=== PATIENT | male | born 1945 | race Caucasian/White ===

== ENCOUNTER 2017-08-07 13:03 | Inpatient (IN) | payer MEDICARE, OTHER ==
[2017-08-07 13:54] VITALS: BP 119/94
[2017-08-07] MEDS ORDERED: Maalox 30 mL Cup PO PRN (16:06)
--- NOTE | 2017-08-07 16:19 | History & Physical ---
ADMIT DATE: 08/07/2017 IDENTIFYING INFORMATION: The patient is a 72-year-old male. CHIEF COMPLAINT: "They got the wrong person." HISTORY OF PRESENT ILLNESS: The patient was sent on a hold for grave disability. Apparently, ____ from Adult Protective Services contacted law enforcement regarding the health and wellbeing of the patient, stated the patient with lack of food items, smelled of urine, delusional, flashbacks and setting traps in the home that are dangerous. When she was speaking to the patient, he believes he still has a clearance and has information to close him to set up ____ in the home. No food in the home, not eating, forgetting to eat, still smelling of urine, poor hygiene, so she determined he was gravely disabled. When I talked to the patient, he was minimizing. He stated they thought somebody was having a nervous served answer with his , but then they brought him here. He reports that he was sleeping and eating well. He was minimizing everything in the hold; however, he was able to tell me the date, being 07/22/2017, which is close. He was able to tell me his date of and his age. He denies any substance abuse. PAST PSYCHIATRIC HISTORY: The patient denies any prior psychiatric treatment. Denies prior suicide attempt. He said he has never been on any medications. However, that to be determined. MEDICAL HISTORY: The patient was deferred to the medical doctor. He is allergic to metoprolol. I do not have a list of his medications. Diabetes mellitus type 2 and hypertension. Also, the patient told me he has been staying in bed for the last 18 years and states his stasis ulcer that has been untreated. FAMILY AND SOCIAL HISTORY: The patient reported that has been 50 years and has 2 children and 3 stepchildren and that he has 4 years in college. He reports he has an IQ of 280. He reports he never had a substance abuse problem. Denies any history of abuse. He said his mother apparently had diabetes mellitus complication and they thought she has mental illness, but then they realized it was diabetes. He reports he was in the . He never tried to harm himself. MENTAL STATUS EXAMINATION: The patient is appropriately dressed, not well groomed. He looked disheveled, smelling of urine. He denies everything on the hold. He was able to tell me his age and date of . He is in a hospital, but he is not sure why. He was somewhat grandiose, believing that he has an IQ of 280. He reports to sleep well. He eats well though according to the notes from Adult Protective Services that he has no food in the home and the house is messy that he was setting up the house probably that may become dangerous. He was grandiose. I am not sure of the fact of delusional about his IQ. His insight and judgment are questionable. IMPRESSION: AXIS I: Psychosis, not otherwise specified. MEDICAL DIAGNOSES: Deferred to the medical doctor. His assets, he seems to have good verbal skills. Negative, poor coping skills. INITIAL TREATMENT PLAN: The patient will try to get more information from his family to find out more what is going on with the patient because of the concern of Adult Protective Services. We will do group therapy, milieu therapy, and individual therapy. ESTIMATED LENGTH OF STAY: 3-7 days. DISCHARGE CRITERIA: Decreasing and no longer delusional. He will take care of himself after discharge, outpatient treatment. We will initiate medication as needed depending on the behavior of the patient. JOB# [id number]
[2017-08-07] MEDS ORDERED: Hydrocodone/APAP 5mg/325mg Tab PO PRN (16:22)
[2017-08-07] MEDS ORDERED: Magnesium Hydroxide (MOM) 30 mL UDC PO PRN (16:26)
[2017-08-07] MEDS: INSULIN ASPART, RECOMBINANT 100 UNITS/ML SUBQ SCH (21:28)
[2017-08-07] MEDS: Atorvastatin Calcium 10 MG TAB PO SCH (22:02)
[2017-08-08] MEDS ORDERED: Albuterol/Ipratropium Neb 3 ML AERS HHN SCH (01:00)
[2017-08-08] MEDS: Albuterol/Ipratropium Neb 3 ML AERS HHN SCH ×3 (06:32→19:08)
[2017-08-08] MEDS: INSULIN ASPART, RECOMBINANT 100 UNITS/ML SUBQ SCH ×4 (06:37→21:37)
[2017-08-08] MEDS: Levothyroxine 0.025 Mg Tab PO SCH (06:47)
[2017-08-08] MEDS ORDERED: Probiotic Screen MC PRN (09:00)
[2017-08-08] MEDS: Insulin Detemir 100 units/mL 10mL Vial SUBQ SCH ×2 (10:00→17:30)
[2017-08-08] MEDS: FLUOCINONIDE 0.05% TP SCH ×2 (10:00→17:35)
[2017-08-08] MEDS: Potassium Chloride 20 mEq ER Tab PO SCH (10:00)
[2017-08-08] MEDS: Lactobacillus Rhamnosus GG 15 Billion CFU CAP.SPRINK PO SCH (10:00)
[2017-08-08] MEDS: Ferrous Sulfate 325 MG TAB PO SCH (10:00)
--- NOTE | 2017-08-08 17:45 | History & Physical ---
ADMIT DATE: PATIENT'S ID: A 72-year old male. CHIEF COMPLAINT: "I don't have diabetes, I want my pacemaker to be out." HISTORY SOURCE: Talking to the patient, reviewing the chart from [facility]. HISTORY OF PRESENT ILLNESS: A 72-year-old -[place] presented to Emergency Room at [facility] by paramedics after the patient was noted to have a gravely disabled and the patient was placed on hold. The patient was extensively evaluated and subsequently transferred to [facility]. The patient does provide some history, but when I am talking to him he does have flights of idea and his history becomes irrelevant. PAST MEDICAL HISTORY: Remarkable for; 1. Diabetes mellitus. 2. Coronary artery disease. 3. Hypertension. 4. BPH. 5. Hyperlipidemia. 6. Chronic kidney disease. 7. Cardiomyopathy. 8. Congestive heart failure. 9. History of biventricular defibrillator placement. ALLERGIES: The patient is not allergic to medication. SOCIAL HISTORY: The patient lives in [facility]. The patient has no history of smoking cigarette, alcohol, or drug use. FAMILY MEDICAL HISTORY: Remarkable for diabetes and hypertension. REVIEW OF SYSTEMS: The patient currently denies any headache, blurred vision, double vision, dysphagia, odynophagia, runny nose, stuffy nose, fever, chills, cough, chest pain, shortness of breath, palpitation, dizziness, nausea, vomiting, diarrhea, dysuria, hematuria, hematochezia, or melena. No history of any seizure or syncopal episode. PHYSICAL EXAMINATION: GENERAL: The patient is alert and awake, lying in the bed without any acute distress. VITAL SIGNS: Temperature 98.6, pulse 74, respiratory rate 18, and blood pressure 144/80. HEENT: Normocephalic and atraumatic. Extraocular muscles are intact. Tongue was pink and coated. Absent upper and lower dentition noted. No facial asymmetry. NECK: Supple. No JVD. No hepatojugular reflux. No lymphadenopathy, thyromegaly, or carotid bruit. HEART: Both heart sounds are regular. Positive S3 noted. CHEST: Lung equal in expansion. No wheezing, no crackles palpable. AICD in the left subclavian area noted. ABDOMEN: Soft. No guarding, rigidity. Bowel sounds are present. No palpable mass. EXTREMITIES: Has a bilateral chronic venous stasis changes with some excoriation also noted. Peripheral pulses were unable to palpate in the lower extremity. NEUROLOGIC: Alert and awake. Follows command. A 2-12 cranial nerves intact. Power in upper and lower extremity 5-. Sensation to touch intact. Babinski's, both toes are going down. No cerebral sign. AVAILABLE DIAGNOSTIC DATA: White count of 4.6, hemoglobin 9.7, and platelet count of 197. Urine drug screen is unremarkable. BUN and creatinine is 30 and 1.73, potassium 4.2. AST and ALTs are normal. EKG has underlying bundle-branch block with a paced rhythm. CLINICAL IMPRESSION: 1. Diabetes mellitus. 2. Hypertension. 3. Hyperlipidemia. 4. Benign prostatic hypertrophy. 5. Cardiomyopathy. 6. Congestive heart failure. 7. Degenerative joint disease. 8. Bilateral chronic venous stasis changes. 9. Chronic kidney disease stage III. 10. Normocytic normochromic anemia. 11. Psychotic disorder exacerbation. 12. High risk for fall. 13. Debility. PLAN: The patient is admitted at this time to Geropsych Unit, psychiatric evaluation and management deferred to psychiatrist. The patient will be placed on his home medication for diabetes, hypertension, and hyperlipidemia along with some p.r.n. symptomatic medication as well. Continue Lyrica for his peripheral neuropathy and chronic venous stasis changes. Chronic venous stasis changes will be observed clinically and local wound care will be provided as well. The patient is to be provided fall precautions as well. Diabetes was managed with Glucoscan before meals and at bedtime with covering the blood sugars, sliding scale regular insulin. The patient will be followed by us during his stay in the hospital. The patient is medically stable to participate in the activity provided by the Geropsych Unit. I sincerely thank you, Dr. Gisela Dee for giving me opportunity to participate in patient of yours. JOB# [id number]
[2017-08-08] MEDS: Atorvastatin Calcium 10 MG TAB PO SCH (21:36)
--- NOTE | 2017-08-09 02:43 | Progress Notes ---
DATE: 08/08/2017 SUBJECTIVE: Case was discussed with staff of the patient, reviewed records. The patient has been easily agitated, refusing treatment for his diabetic ulcers, and selective about his medication. He is unpredictable and impulsive. He was unable to recognize me today, than he did want to talk to me. He continues to have poor insight and grandiose. He is sleeping well and eating well. He has no clue about why he is here and forgetful. The patient is diabetic, has a stasis ulcers on both of his feet and legs. He has been yelling there is a [place] , throwing things. PLAN: I will be initiating the patient on Aricept and see if we need to give him any major tranquilizer to help with his behavior as well as give him more time. I am not sure he will take the medication. We will continue to work with the patient in group therapy, milieu therapy, and adjust the medication as needed. JOB# [id number]
[2017-08-09] MEDS: Levothyroxine 0.025 Mg Tab PO SCH (06:33)
[2017-08-09] MEDS: INSULIN ASPART, RECOMBINANT 100 UNITS/ML SUBQ SCH ×5 (06:40→20:39)
[2017-08-09] MEDS: Albuterol/Ipratropium Neb 3 ML AERS HHN SCH ×3 (07:34→20:09)
--- NOTE | 2017-08-09 09:11 | General Progress Note ---
Subjective - Review of Systems Service Date: 08/09/17 Subjective: Patient is seen and examined. No chest pain,SOB,fever,Chill,cough ,headache. Objective - Results Recent Labs: Laboratory Last Values POC Glucose 259 MG/DL (70 - 105) H 08/07/17 14:45 - Physical Exam Vitals and I&O: Vital Signs Temp 97.5 F 08/09/17 05:43 Pulse 95 08/09/17 07:39 Resp 16 08/09/17 07:39 BP 120/68 08/09/17 05:43 Pulse Ox 100 08/09/17 07:39 Intake & Output 08/08/17 08/09/17 08/09/17 18:59 06:59 18:59 Intake Total 1600 480 Output Total 600 Balance 1000 480 Intake: Oral 1600 480 Output: Urine 600 Other: # Voids 2 # Bowel Movements 1 Active Medications: Current Medications Acetaminophen (Tylenol) 650 mg PO Q4H PRN PRN Reason: MILD PAIN Stop: 10/06/17 16:03 Last Admin: 08/07/17 22:04 Dose: 650 mg Acetaminophen/Hydrocodone Bitart ([place] 5mg/325mg) 1 tab PO Q4H PRN PRN Reason: SEVERE PAIN Stop: 10/06/17 16:21 Last Admin: 08/08/17 12:17 Dose: 1 tab Al Hydrox/Mg Hydrox/Simethicone (Maalox) 30 ml PO Q6HR PRN PRN Reason: GI DISTRESS Stop: 10/06/17 16:05 Albuterol/Ipratropium (Duoneb Neb) 3 ml HHN [id number] [facility] Stop: 10/07/17 06:59 Last Admin: 08/09/17 07:34 Dose: 3 ml Amiodarone HCl (Cordarone) 200 mg PO DAILY MATHEW Stop: 10/07/17 08:59 Last Admin: 08/08/17 10:00 Dose: Not Given Atorvastatin Calcium (Lipitor) 20 mg PO HS MATHEW PRN Reason: Protocol Stop: 10/06/17 20:59 Last Admin: 08/08/17 21:36 Dose: 20 mg Carvedilol (Coreg) 3.125 mg PO Q12HR MATHEW Stop: 10/06/17 20:59 Last Admin: 08/08/17 21:34 Dose: 3.125 mg [place] Oil/[place] Balsam/Trypsin (Venelex) 1 appl TP DAILY MATHEW Stop: 10/08/17 08:59 Clindamycin HCl (Cleocin Hcl) 450 mg PO Q8HR MATHEW Stop: 10/06/17 20:59 Last Admin: 08/09/17 05:43 Dose: 450 mg Digoxin (Lanoxin) 0.125 mg PO HS MATHEW Stop: 10/06/17 20:59 Last Admin: 08/08/17 21:37 Dose: Not Given Donepezil HCl (Aricept) 5 mg PO HS MATHEW Stop: 10/07/17 20:59 Last Admin: 08/08/17 21:37 Dose: Not Given Dutasteride (Avodart) 0.5 mg PO DAILY MATHEW PRN Reason: Protocol Stop: 10/07/17 08:59 Last Admin: 08/08/17 10:00 Dose: Not Given Ferrous Sulfate (Iron) 325 mg PO DAILY MATHEW Stop: 10/07/17 08:59 Last Admin: 08/08/17 10:00 Dose: Not Given Fluocinonide (Fluocinonide 60 Ml) 2 appl TP BID MATHEW Stop: 10/07/17 08:59 Last Admin: 08/08/17 17:35 Dose: 2 appl Furosemide (Lasix) 40 mg PO BID MATHEW Stop: 10/06/17 16:59 Last Admin: 08/08/17 17:34 Dose: Not Given Insulin Aspart (Novolog) 0 units SUBQ ACHS MATHEW PRN Reason: Protocol Stop: 10/06/17 20:59 Last Admin: 08/09/17 06:40 Dose: Not Given Insulin Detemir (Levemir Insulin) 15 units SUBQ BID MATHEW PRN Reason: Protocol Stop: 10/07/17 08:59 Last Admin: 08/08/17 17:30 Dose: Not Given Lactobacillus Rhamnosus (Culturelle 15b) 1 each PO DAILY MATHEW Stop: 10/07/17 08:59 Last Admin: 08/08/17 10:00 Dose: Not Given Levothyroxine Sodium (Synthroid) 0.025 mg PO QDAC MATHEW Stop: 10/07/17 07:29 Last Admin: 08/09/17 06:33 Dose: 0.025 mg Lisinopril (Zestril) 2.5 mg PO DAILY MATHEW Stop: 10/07/17 08:59 Last Admin: 04/30/18 10:00 Dose: Not Given Magnesium Hydroxide (Milk Of Magnesia) 30 ml PO HS PRN PRN Reason: Constipation Stop: 10/06/17 16:25 Miscellaneous (Probiotic Screen) 1 ea MC PRN PRN PRN Reason: PROTOCOL Stop: 10/07/17 08:59 Nabumetone (Relafen) 750 mg PO BID MATHEW Stop: 10/07/17 08:59 Last Admin: 08/08/17 17:41 Dose: 750 mg Nitroglycerin (Nitrostat) 0.4 mg SL Q5MIN PRN PRN Reason: Chest Pain Stop: 10/06/17 16:27 Potassium Chloride (Klor-Con) 20 meq PO DAILY MATHEW Stop: 10/07/17 08:59 Last Admin: 08/08/17 10:00 Dose: Not Given Pregabalin (Lyrica) 150 mg PO Q12HR MATHEW Stop: 10/06/17 20:59 Last Admin: 08/08/17 21:00 Dose: Not Given Rivaroxaban (Xarelto) 15 mg PO DAILY MATHEW Stop: 10/07/17 08:59 Last Admin: 08/08/17 10:00 Dose: Not Given Spironolactone (Aldactone) 25 mg PO DAILY MATHEW Stop: 10/07/17 08:59 Last Admin: 08/08/17 10:00 Dose: Not Given Tamsulosin HCl (Flomax) 0.4 mg PO DAILY [facility] Stop: 10/07/17 08:59 Last Admin: 08/08/17 10:00 Dose: Not Given Valsartan (Diovan) 20 mg PO DAILY MATHEW Stop: 10/07/17 08:59 Last Admin: 08/08/17 10:00 Dose: Not Given General: Alert, Cooperative, No acute distress HEENT: Atraumatic, PERRLA, EOMI, Other (absent teeth.) Neck: Supple, JVD Cardiovascular: Regular rate, Normal S1, Normal S2 Lungs: Clear to auscultation Abdomen: Bowel sounds, Soft Extremities: Other (chronic venous stasis changes.) Neurological: Normal speech, Normal tone, Sensation intact Psych/Mental Status: Other (labile.) Assessment/Plan - Assessment Assessment: Diabetes. Hypertension. Hyperlipedemia DJD Psych disorder Chronic venous stasis Hypothyrodism Cardiac arrythmia Fall risk. - Plan Plan: Diabetes management Anti htn meds. Synthroid statin psych meds Psych follow up. General nursing care Continue current care. Fall precautions Care plan reviewed with staff.
[2017-08-09] MEDS: Ferrous Sulfate 325 MG TAB PO SCH (10:00)
[2017-08-09] MEDS: Lactobacillus Rhamnosus GG 15 Billion CFU CAP.SPRINK PO SCH (10:00)
[2017-08-09] MEDS: Insulin Detemir 100 units/mL 10mL Vial SUBQ SCH ×2 (10:00→16:52)
[2017-08-09] MEDS: FLUOCINONIDE 0.05% TP SCH ×2 (10:00→16:52)
[2017-08-09] MEDS: Venelex 60gm Tube TP SCH (10:00)
[2017-08-09] MEDS: Potassium Chloride 20 mEq ER Tab PO SCH (10:00)
[2017-08-09] MEDS: Atorvastatin Calcium 10 MG TAB PO SCH (20:34)
--- NOTE | 2017-08-10 03:51 | Progress Notes ---
DATE: 08/09/2017 SUBJECTIVE: Case discussed with staff of the patient. He continues to be grandiose and delusional. Continues to be unable to make safe plan for self-care. He has no insight about the reason that led to him coming here. He was found with urine all over him with no food in the house. Unable to formulate a safe plan for his self-care. No side effects with the medication, no sedation, or no nausea. PLAN: The patient refused to be on any medication. We will continue outpatient group therapy, milieu therapy, and adjust medication as needed. JOB# [id number]
[2017-08-10] MEDS: INSULIN ASPART, RECOMBINANT 100 UNITS/ML SUBQ SCH ×4 (06:29→20:51)
[2017-08-10] MEDS: Levothyroxine 0.025 Mg Tab PO SCH (06:31)
[2017-08-10] MEDS: Albuterol/Ipratropium Neb 3 ML AERS HHN SCH ×3 (07:24→19:33)
[2017-08-10] MEDS: Ferrous Sulfate 325 MG TAB PO SCH (08:30)
[2017-08-10] MEDS: Potassium Chloride 20 mEq ER Tab PO SCH (08:31)
[2017-08-10] MEDS: Lactobacillus Rhamnosus GG 15 Billion CFU CAP.SPRINK PO SCH (08:33)
[2017-08-10] MEDS: Venelex 60gm Tube TP SCH (08:35)
[2017-08-10] MEDS: FLUOCINONIDE 0.05% TP SCH ×2 (08:35→16:22)
[2017-08-10] MEDS: Insulin Detemir 100 units/mL 10mL Vial SUBQ SCH ×2 (08:55→16:21)
[2017-08-10] MEDS: Atorvastatin Calcium 10 MG TAB PO SCH (20:45)
--- NOTE | 2017-08-11 00:25 | Progress Notes ---
DATE: 08/10/2017 SUBJECTIVE: Chart reviewed and the patient interviewed. Also, discussed the patient's condition with the staff and reviewed records and labs. The patient constantly talking and he is hyperverbal and has pressured speech. The patient also is still restless and in irritable mood and he is easily agitated. The patient also is paranoid and has grandiose delusions. Also, is refusing to take any medications for no apparent reason except "I don't need any medicine." The patient also is pricking on his skin to the point of bleeding comes out from his skin. Also, the patient is rambling and disorganized thoughts. ASSESSMENT: The patient is still psychotic. TREATMENT PLAN: Discussed with the patient the importance of taking his psychotropic medications. He still has poor insight and gave no reason for choosing medications except he thinks that "I don't need it." We will continue to work on his noncompliance with medications. Also, we will continue monitoring his behavior and continue to follow up closely. JOB# [id number]
[2017-08-11] MEDS: INSULIN ASPART, RECOMBINANT 100 UNITS/ML SUBQ SCH ×4 (06:30→21:32)
[2017-08-11] MEDS: Levothyroxine 0.025 Mg Tab PO SCH (06:34)
[2017-08-11] MEDS: Albuterol/Ipratropium Neb 3 ML AERS HHN SCH ×3 (07:24→19:42)
[2017-08-11] MEDS: Potassium Chloride 20 mEq ER Tab PO SCH ×2 (09:22→09:31)
[2017-08-11] MEDS: Ferrous Sulfate 325 MG TAB PO SCH (09:22)
[2017-08-11] MEDS: Lactobacillus Rhamnosus GG 15 Billion CFU CAP.SPRINK PO SCH (09:22)
[2017-08-11] MEDS: OLANZapine 5 mg Oral Disintegrating Tab PO SCH ×2 (09:23→17:26)
[2017-08-11] MEDS: Insulin Detemir 100 units/mL 10mL Vial SUBQ SCH ×2 (09:24→17:26)
[2017-08-11] MEDS: Atorvastatin Calcium 10 MG TAB PO SCH (21:30)
[2017-08-12] MEDS: INSULIN ASPART, RECOMBINANT 100 UNITS/ML SUBQ SCH ×4 (06:39→21:45)
[2017-08-12] MEDS: Levothyroxine 0.025 Mg Tab PO SCH (06:42)
[2017-08-12] MEDS: Albuterol/Ipratropium Neb 3 ML AERS HHN SCH ×3 (07:36→19:20)
[2017-08-12] MEDS: Lactobacillus Rhamnosus GG 15 Billion CFU CAP.SPRINK PO SCH (09:30)
[2017-08-12] MEDS: OLANZapine 5 mg Oral Disintegrating Tab PO SCH ×2 (09:31→17:54)
[2017-08-12] MEDS: Ferrous Sulfate 325 MG TAB PO SCH (09:31)
[2017-08-12] MEDS: FLUOCINONIDE 0.05% TP SCH ×4 (17:00→17:52)
[2017-08-12] MEDS: Venelex 60gm Tube TP SCH ×2 (17:00→17:51)
[2017-08-12] MEDS: Insulin Detemir 100 units/mL 10mL Vial SUBQ SCH ×2 (17:01→18:03)
[2017-08-12] MEDS: Potassium Chloride 20 mEq ER Tab PO SCH (17:52)
--- NOTE | 2017-08-12 19:53 | Progress Notes ---
DATE: SUBJECTIVE: Chart reviewed and the patient interviewed. Also discussed the patient's condition with the staff and reviewed records and labs. The patient continued to be uncooperative and in irritable mood. The patient also is still not taking any medications and thinks that he is smart enough that he does not need any psychotropic medications. He also is still restless and he is still unpredictable and . Also, he is still in denial of any psychiatric issues. Otherwise, the patient continued to have irritable moods and disorganized thoughts. ASSESSMENT: The patient is still psychotic. TREATMENT PLAN: Continue monitoring his behavior and his condition closely and we will add Zyprexa Zydis for better compliance with taking his medications and will continue to follow up closely. JOB# [id number]
[2017-08-12] MEDS: Atorvastatin Calcium 10 MG TAB PO SCH (21:17)
--- NOTE | 2017-08-14 19:38 | Discharge Summary ---
DATE OF DISCHARGE: 08/12/2017 AGE; 78. SEX: Male. PHYSICIAN: Dr. Dee. FINAL DIAGNOSIS/PRIMARY DIAGNOSIS: Unspecified psychosis. MEDICAL DIAGNOSIS: Infection to legs. REASON FOR HOSPITALIZATION: The patient was admitted to the hospital because of increased irritability and agitation. HOSPITAL COURSE: The patient was admitted to the hospital. The patient was uncooperative and refusing treatment and even his insulin. The patient's condition of his feet and leg was getting worse and the patient was having difficulty with his cooperative and compliant with medications and treatment. The patient was transferred to medical floor to monitor his medical condition closely. Physical examination of the patient showed that the patient need more medical clearance for his medical problems and for his leg condition. AFTER DISCHARGE PLANS: The patient discharged to medical floor with plans to monitor his condition and follow him there for a psychological condition. [facility]# [id number]
== END 2017-08-12 22:00 | DRG 885 ==
LOC: GERO 13:03
PROVIDERS: ADMIT Psychiatry & Neurology Psychiatry; ATTEND Psychiatry & Neurology Psychiatry
DX: F29 Unspecified psychosis not due to a substance or known physiological condition (principal); N18.3 Chronic kidney disease, stage 3 (moderate); I42.9 Cardiomyopathy, unspecified; I13.0 Hypertensive heart and chronic kidney disease with heart failure and stage 1 through stage 4 chronic kidney disease, or unspecified chronic kidney disease; E78.5 Hyperlipidemia, unspecified; N40.0 Benign prostatic hyperplasia without lower urinary tract symptoms; I50.9 Heart failure, unspecified; M19.90 Unspecified osteoarthritis, unspecified site; E11.22 Type 2 diabetes mellitus with diabetic chronic kidney disease; D64.9 Anemia, unspecified; Z91.81 History of falling; R53.81 Other malaise; I87.8 Other specified disorders of veins; I25.10 Atherosclerotic heart disease of native coronary artery without angina pectoris; E11.42 Type 2 diabetes mellitus with diabetic polyneuropathy; I49.9 Cardiac arrhythmia, unspecified; Z95.810 Presence of automatic (implantable) cardiac defibrillator
CPT/HCPCS: 82948-90; 90899; 94640; 94760; G0410; J1815; Z7610

== ENCOUNTER 2017-08-12 22:00 | Inpatient (IN) | payer MEDICARE, OTHER ==
[2017-08-13] MEDS ORDERED: Maalox 30 mL Cup PO PRN (02:11)
[2017-08-13] MEDS ORDERED: Magnesium Hydroxide (MOM) 30 mL UDC PO PRN (02:11)
--- NOTE | 2017-08-13 05:01 | Progress Notes ---
DATE: 08/12/2017 PSYCHIATRIC PROGRESS NOTE Chart reviewed and the patient interviewed. Also discussed the patient's condition with the staff and reviewed records and labs. The patient is still in irritable and angry mood. The patient also is still manipulative and he is still unpredictable. Also, is still suspicious and hypertalkative and he still refuses medications. He also still has severe mood swings and severe anxiety. Otherwise, the patient exhibiting minor behavioral issues and problems, especially being intrusive to others and encouraging other patients not to take medications. ASSESSMENT: The patient is still psychotic and agitated. TREATMENT PLAN: Continue monitoring his behavior and condition closely. Also, continue to talk to the patient about taking his psychotropic medications. Also, continue to work on his irritability and anger. JOB# [id number]
[2017-08-13 06:33] LABS: % EOSINOPHILS 2.4 % (0.0-5.0); % MONOCYTES 6.5 % (2.0-10.0); EOSINOPHILE ABSOLUTE 0.1 Th/cmm (0.1-0.4); LYMPHOCYTE ABSOLUTE 0.6 Th/cmm (1.5-3.0); MEAN CELL VOLUME 78.3 fl (80-99); MONOCYTE ABSOLUTE 0.3 Th/cmm (0.3-1.0); WHITE BLOOD COUNT 4.5 Th/cmm (4.8-10.8)
[2017-08-13 06:41] LABS: % NEUTROPHILS 76.1 % (40.0-80.0); HEMATOCRIT 24.1 % (41.0-60); MEAN CORPUSCULAR HEMOGLOBIN 25.7 pg (27.0-31.0); MEAN CORPUSCULAR HGB CONC 32.9 pg (28.0-36.0); MEAN PLATELET VOLUME 7.5 fl; NEUTROPHILE ABSOLUTE 3.5 Th/cmm (1.8-8.0); PLATELET COUNT 167 Th/cmm (150-400); RED BLOOD COUNT 3.07 Mil/cmm (3.80-5.80); RED CELL DISTRIBUTION WIDTH 18.6 % (11.5-20.0)
[2017-08-13] MEDS: INSULIN ASPART, RECOMBINANT 100 UNITS/ML SUBQ SCH ×3 (06:41→18:09)
[2017-08-13] MEDS: Levothyroxine 0.025 Mg Tab PO SCH (06:42)
[2017-08-13 06:43] LABS: HEMOGLOBIN 7.9 gm/dL (12-16)
[2017-08-13 07:03] LABS: ANION GAP 12.2 (7.0-16.0); CALCIUM SERUM 8.8 mg/dL (8.6-10.3); CARBON DIOXIDE 23.2 mEq/L (21.0-31.0); CREATININE - SERUM 2.1 mg/dL (0.7-1.3); GFR AFRICAN-AMERICAN 40.4 ml/min (>90); GFR NON AFRICAN-AMERICAN 33.4 ml/min; POTASSIUM SERUM 5.4 mEq/L (3.5-5.1)
[2017-08-13] MEDS: Albuterol/Ipratropium Neb 3 ML AERS HHN SCH ×3 (07:24→19:17)
[2017-08-13] MEDS ORDERED: INSULIN ASPART, RECOMBINANT 100 UNITS/ML SUBQ SCH (07:30)
[2017-08-13] MEDS ORDERED: Potassium Chloride 20 mEq ER Tab PO SCH (09:00)
[2017-08-13] MEDS ORDERED: Venelex 60gm Tube TP SCH (09:00)
[2017-08-13] MEDS ORDERED: Insulin Detemir 100 units/mL 10mL Vial SUBQ SCH (09:00)
[2017-08-13] MEDS: Insulin Detemir 100 units/mL 10mL Vial SUBQ SCH ×2 (09:52→18:20)
[2017-08-13] MEDS: FLUOCINONIDE 0.05% TP SCH ×2 (10:00→18:17)
[2017-08-13] MEDS: Venelex 60gm Tube TP SCH (10:01)
[2017-08-13] MEDS: Lactobacillus Rhamnosus GG 15 Billion CFU CAP.SPRINK PO SCH (10:02)
[2017-08-13] MEDS: Ferrous Sulfate 325 MG TAB PO SCH (10:02)
[2017-08-13] MEDS: OLANZapine 5 mg Oral Disintegrating Tab PO SCH ×2 (10:03→18:17)
--- NOTE | 2017-08-13 15:45 | Consultation ---
Consult Note - Consult Note Service Date: 08/13/17 Referring Physician: Mykel Torres Consult Note: PHYSICIAN Consultation Note: Date of Admission: 08/12/17 Purpose of Consultation: Bilateral leg cellulitis and wounds. Chief Complaint: Patient LUIS GOMEZ was admitted to [facility] Medical/Surgical Unit I with BILATERAL LOWER EXTREMITY WOUND. History of Present Illness:Patient is 72 year male with a past medical history of diabetes mellitus type 2, hypertension, carotid disease, BPH, hyperlipidemia , CK D, cardiopathy, CHF, defibrillator, brought to [facility] by paramedics for being gravely disabled. Patient will put on hold. He was transferred to the [facility] Mark-psych unit for further care. He was noted to have bilateral leg ulcers with the surrounding erythema worse on the left side with erythema and swelling extending to the foot. The cellulitis of both legs was treated by clindamycin orally. As patient's facilities are not getting Z was transferred to acute care setting for further care. Patient stated that he had that developed wound 4 years ago and never healed. Also he noticed some improvement. He is refusing to open the dressing to unable to evaluate the wound. However erythema was noted mainly on the left foot and leg area. Patient was afebrile and WBC count was 4500. Vancomycin was started and ID consult was called for further antibiotic management. Past Medical History: diabetes mellitus type 2, hypertension, carotid disease, BPH, hyperlipidemia, CK D, cardiopathy, CHF, defibrillator, Allergies Allergy/AdvReac Type Severity Reaction Status Date / Time metoprolol Allergy Unknown Verified 08/09/17 15:36 pregabalin [From Lyrica] Allergy Unknown Verified 08/09/17 15:36 Vital Signs Temp 97.7 F 08/13/17 06:19 Pulse 87 08/13/17 12:30 Resp 14 08/13/17 12:30 BP 100/52 08/13/17 10:27 Pulse Ox 97 08/13/17 12:30 Intake & Output 08/12/17 08/13/17 08/13/17 18:59 06:59 18:59 Intake Total 550 Balance 550 Weight (lbs) 74.843 kg Intake: Oral 550 Other: # Voids 2 Weight Source Standing scale Laboratory Results - last 24 hr 08/13/17 08/13/17 08/13/17 06:04 06:04 11:54 WBC 4.5 L RBC 3.07 L Hgb 7.9 L* Hct 24.1 L MCV 78.3 L MCH 25.7 L MCHC Differential 32.9 RDW 18.6 Plt Count 167 MPV 7.5 Neutrophils % 76.1 Lymphocytes % 14.0 L Monocytes % 6.5 Eosinophils % 2.4 Basophils % 1.0 Sodium 139 Potassium 5.4 H Chloride 109 H Carbon Dioxide 23.2 Anion Gap 12.2 BUN 52 H Creatinine 2.1 H Est GFR ( Amer) 40.4 Est GFR (Non-Af Amer) 33.4 BUN/Creatinine Ratio 24.8 Glucose 148 H POC Glucose 174 H Calcium 8.8 Current Medications Generic Name Dose Route Start Last Admin Trade Name Freq PRN Reason Stop Dose Admin Acetaminophen 650 mg 08/13/17 02:09 Tylenol PO 10/12/17 02:08 Q4H PRN Pain or Fever >101 Acetaminophen/Hydrocodone Bitart 1 tab 08/13/17 02:11 [place] 5mg/325mg PO 10/12/17 02:10 Q4H PRN mild pain Al Hydrox/Mg Hydrox/Simethicone 30 ml 08/13/17 02:11 Maalox PO 10/12/17 02:10 Q6HR PRN GI DISTRESS Albuterol/Ipratropium 3 ml 08/13/17 07:00 08/13/17 12:28 Duoneb [facility] 10/12/17 06:59 3 ml Q6HRT MATHEW Administration Albuterol/Ipratropium 3 ml 08/13/17 07:00 Duoneb [facility] 10/12/17 06:59 [id number] MATHEW Amiodarone HCl 200 mg 08/13/17 09:00 08/13/17 10:02 Cordarone PO 10/12/17 08:59 200 mg DAILY MATHEW Administration Atorvastatin Calcium 20 mg 08/13/17 21:00 Lipitor PO 10/12/17 20:59 HS [facility] Protocol Carvedilol 3.125 mg 08/13/17 09:00 08/13/17 10:04 Coreg PO 10/12/17 08:59 Not Given Q12HR MATHEW [place] Oil/Chilean Balsam/Trypsin 1 appl 08/13/17 09:00 08/13/17 10:01 Venelex TP 10/12/17 08:59 1 appl DAILY MATHEW Administration [place] Oil/Chilean Balsam/Trypsin 1 appl 08/13/17 09:00 08/13/17 10:04 Venelex TP 10/12/17 08:59 1 appl DAILY MATHEW Administration Clindamycin HCl 450 mg 08/13/17 05:00 08/13/17 05:38 Cleocin Hcl PO 10/12/17 04:59 450 mg Q8HR MATHEW Administration Digoxin 0.125 mg 08/13/17 21:00 Lanoxin PO 10/12/17 20:59 HS MATHEW Donepezil HCl 5 mg 08/13/17 21:00 Aricept PO 10/12/17 20:59 HS MATHEW Dutasteride 0.5 mg 08/13/17 09:00 08/13/17 10:02 Avodart PO 10/12/17 08:59 0.5 mg DAILY MATHEW Administration Protocol Ferrous Sulfate 325 mg 08/13/17 09:00 08/13/17 10:02 Iron PO 10/12/17 08:59 325 mg DAILY MATHEW Administration Fluocinonide 2 appl 08/13/17 09:00 08/13/17 10:00 Fluocinonide 60 Ml TP 10/12/17 08:59 2 appl BID MATHEW Administration Furosemide 40 mg 08/13/17 09:00 08/13/17 10:05 Lasix PO 10/12/17 08:59 Not Given BID MATHEW Vancomycin HCl 1 gm/ Sodium 250 mls @ 165 mls/hr 08/14/17 09:00 Chloride IV 08/14/17 13:00 0900 [facility] Insulin Aspart 0 units 08/13/17 07:30 08/13/17 14:22 Novolog SUBQ 10/12/17 07:29 Not Given ACHS [facility] Protocol Insulin Detemir 15 units 08/13/17 09:00 08/13/17 09:52 Levemir Insulin SUBQ 10/12/17 08:59 15 unit BID MATHEW Administration Protocol Lactobacillus Rhamnosus 1 each 08/13/17 09:00 08/13/17 10:02 Culturelle 15b PO 10/12/17 08:59 1 each DAILY MATHEW Administration Levothyroxine Sodium 0.025 mg 08/13/17 07:30 08/13/17 06:42 Synthroid PO 10/12/17 07:29 0.025 mg QDAC MATHEW Administration Lisinopril 2.5 mg 08/13/17 09:00 08/13/17 10:05 Zestril PO 10/12/17 08:59 Not Given DAILY MATHEW Magnesium Hydroxide 30 ml 08/13/17 02:11 Milk Of Magnesia PO 10/12/17 02:10 HS PRN Constipation Miscellaneous 1 ea 08/13/17 02:00 Vancomycin Iv Per Pharmacy 10/12/17 01:59 PRN PRN PROTOCOL Nabumetone 750 mg 08/13/17 09:00 08/13/17 10:01 Relafen PO 10/12/17 08:59 Not Given BID MATHEW Nitroglycerin 0.4 mg 08/13/17 02:11 Nitrostat SL 10/12/17 02:10 Q5MIN PRN Chest Pain Olanzapine 5 mg 08/13/17 09:00 08/13/17 10:03 Zyprexa Zydis PO 10/12/17 08:59 5 mg BID MATHEW Administration Protocol Potassium Chloride 20 meq 08/13/17 09:00 08/13/17 10:26 Klor-Con PO 10/12/17 08:59 20 meq DAILY MATHEW Administration Rivaroxaban 15 mg 08/13/17 09:00 08/13/17 10:26 Xarelto PO 10/12/17 08:59 15 mg DAILY MATHEW Administration Spironolactone 25 mg 08/13/17 09:00 08/13/17 10:23 Aldactone PO 10/12/17 08:59 Not Given DAILY MATHEW Tamsulosin HCl 0.4 mg 08/13/17 09:00 08/13/17 10:03 Flomax PO 10/12/17 08:59 0.4 mg DAILY MATHEW Administration Valsartan 20 mg 08/13/17 09:00 08/13/17 10:27 Diovan PO 10/12/17 08:59 Not Given DAILY MATHEW Review of Systems: A 12 point ROS was reviewed with the pertinent positive and negatives noted in the HPI. Social History Smoking Status Unknown if ever smoked Drug Use No Alcohol Use No Lives at nursing facility. Family Medical History Not available Physical Exam: General: Comfortable, not in acute distress. HEENT: Head: Normocephalic, atraumatic. Oral cavity: Moist, pink tongue eyes: Pallor is present and no icterus. Pupil PERRLA EOMI. Neck: Supple, no JVD or bruit. No no use of accessory neck muscles. Cardio: S1 and S2 within normal limits regular rhythm no murmur no gallop. Respiratory: CTAP. Abdominal: Soft, nontender, nondistended bowel sounds present. Genital/Urinary: Deferred. Extremities: No cyanosis no clubbing no edema. Patient has chronic nonhealing wound both legs with some surrounding erythema. Erythema is worse on the left side. The erythema of the left legs extended to the dorsum of the foot. There is open ulcers of left forearm. Neurological: Alert awake oriented 3. 1. Assessment: 1. Cellulitis of both legs. With open nonhealing complicated wound. Cellulitis of left foot. 2. Left forearm wound. 3. Diabetes mellitus type 2. 4. Hypertension. 5. Hyperlipidemia. Plan: Continue vancomycin and discontinue clindamycin. Patient needs aggressive wound care. Wound cultures. Thank you Dr. Torres for involving me in taking care of this patient Signed, Chi Vinson M.D. [id number]
--- NOTE | 2017-08-13 18:07 | Progress Notes ---
DATE: 08/13/2017 PSYCHIATRIC PROGRESS NOTE Chart reviewed and the patient interviewed. Also, discussed the patient's condition with the staff and reviewed records and labs. [facility] medical floor because of a possible infection in his lower legs and feet. The patient has been refusing to take any psychotropic medications and even his insulin and all other medications and the patient's medical conditions deteriorated and transferred the patient to the medical floor for more medical treatment. The patient is still restless and he is still in irritable mood, but at the same time seems to be slightly sedated and slightly easier, give him medications, said he has IV. Currently, the patient is calm and he is cooperative with treatment. ASSESSMENT: The patient is less agitated and is more cooperative. TREATMENT PLAN: Continue monitoring his behavior and continue adjusting psychotropic medications and followup. JOB# [id number]
[2017-08-13] MEDS: Atorvastatin Calcium 10 MG TAB PO SCH (20:59)
--- NOTE | 2017-08-13 22:55 | History & Physical ---
ADMIT DATE: 08/13/2017 REASON FOR ADMISSION: Bilateral lower extremity cellulitis and open wound. HISTORY OF PRESENT ILLNESS: This is a 72-year-old male with underlying history of multiple complex medical history including diabetes with nephropathy, hypertension, hyperlipidemia, cardiomyopathy, CHF, status post defibrillator and pacemaker placement, was [facility] for underlying psychiatric illnesses by Dr. Dee. While the patient was being treated with oral clindamycin for both lower extremity cellulitis with chronic venous stasis and open wound. In spite of oral antibiotic, the patient's wound appears to be worsening, infected and has some discharge, so the patient was directed to the medical floor for further evaluation and treatment. At the time of evaluation, the patient is awake, alert. Denies any fever, no chills, no nausea, no vomiting. The patient states he has had this wound for over the past 3-4 years and it never healed. PAST MEDICAL HISTORY: Diabetes with nephropathy, CKD 3, hypertension, BPH, hyperlipidemia, hypothyroidism, congestive heart failure. PAST SURGICAL HISTORY: No significant past surgeries reported.. SOCIAL HISTORY: The patient lives at group home facility. Denies any alcohol, tobacco, or street drug use. CURRENT MEDICATIONS: The patient is currently on Tylenol, [place], Maalox, DuoNeb, amiodarone, Lipitor, Coreg, digoxin, Aricept, Avodart, iron supplements, fluocinonide, Levemir, NovoLog, Synthroid, Zestril, milk of mag, vancomycin, Nitrostat, Zyprexa, Xarelto, Aldactone, Flomax, Diovan. REVIEW OF SYSTEMS: The patient denies any fever, no chills, no diarrhea, no vomiting, no abdominal pain, no headache, no trouble vision, no trouble speech, no hematuria, no dysuria, no hematemesis, no melena, no headache, no chest pain, no shortness of breath, dizziness or palpitation complaints. PHYSICAL EXAMINATION: VITAL SIGNS: Temperature 97.2, pulse 87, respirations 19, blood pressure 126/80 93% on room air. Pain 0/10. GENERAL APPEARANCE: The patient was sitting comfortably in the bed, in no apparent distress. HEENT: Unremarkable. HEART: S1, S2 normal. LUNGS: Clear to auscultation bilaterally. ABDOMEN: Soft, nontender, no nondistended. No guarding. NEUROLOGIC: The patient is alert, awake. Moves all extremities. Grossly nonfocal exams. EXTREMITIES: Bilateral open wound with surrounding erythema and slough noted. Chronic venous stasis noted. Pulse is feeble on both lower extremities. AVAILABLE LABORATORY DATA: WBC 4.5, hemoglobin 7.9, hematocrit 24.1, platelet 167. Sodium 139, potassium 5.4, BUN 52, creatinine 2.1. Sugar 148, calcium 8.8, GFR 40. ASSESSMENT: 1. Bilateral lower extremity cellulitis with chronic venous stasis. 2. Diabetes with nephropathy, chronic kidney disease 3. 3. Hypertensive renal disease. 4. Hyperkalemia. 5. Acute on chronic kidney disease. 6. Hypothyroidism. 7. Chronic atrial fibrillation. 8. Chronic heart failure. 9. Pacemaker in place. 10. Hyperlipidemia. 11. Mental disorder 12. Generalized debility. PLAN: The patient will be admitted to med/surg floor, started on IV antibiotics. ID was consulted and who agreed with the current ongoing IV antibiotics. Daily wound care will be given. The patient will be continued on blood sugar monitoring. Vitals will be monitored. Basal-bolus insulin coverage will be given. Psych was consulted for major underlying psychiatric illnesses. Monitor renal functions closely. Follow up labs in the morning. Continue Zestril, Synthroid, Aricept, Avodart, iron supplements, Coreg, Lipitor, Cordarone, DuoNeb. The patient appeared to have anemia of chronic disease. We will monitor the patient's CBC. Follow up labs in the morning. Discussed the patient's condition and plan with nursing staff. JOB# [id number] DOMO
[2017-08-14 06:23] LABS: % BASOPHILS 1.5 % (0.0-2.0); % EOSINOPHILS 2.2 % (0.0-5.0); % LYMPHOCYTES 24.5 % (20.0-50.0); % MONOCYTES 7.9 % (2.0-10.0); % NEUTROPHILS 63.9 % (40.0-80.0); BASOPHILE ABSOLUTE 0.1 Th/cumm (0-0.2); EOSINOPHILE ABSOLUTE 0.1 Th/cmm (0.1-0.4); MEAN CELL VOLUME 78.3 fl (80-99); MEAN CORPUSCULAR HEMOGLOBIN 25.8 pg (27.0-31.0); MEAN PLATELET VOLUME 7.1 fl; MONOCYTE ABSOLUTE 0.3 Th/cmm (0.3-1.0); NEUTROPHILE ABSOLUTE 2.4 Th/cmm (1.8-8.0); PLATELET COUNT 152 Th/cmm (150-400); RED BLOOD COUNT 3.05 Mil/cmm (3.80-5.80); RED CELL DISTRIBUTION WIDTH 18.1 % (11.5-20.0)
[2017-08-14 06:29] LABS: HEMATOCRIT 23.9 % (41.0-60); WHITE BLOOD COUNT 3.9 Th/cmm (4.8-10.8)
[2017-08-14 06:30] LABS: HEMOGLOBIN 7.9 gm/dL (12-16)
[2017-08-14 06:47] LABS: ANION GAP 12.3 (7.0-16.0); CALCIUM SERUM 9.1 mg/dL (8.6-10.3); CREATININE - SERUM 2.2 mg/dL (0.7-1.3); GFR AFRICAN-AMERICAN 38.2 ml/min (>90); GFR NON AFRICAN-AMERICAN 31.6 ml/min; POTASSIUM SERUM 5.3 mEq/L (3.5-5.1)
[2017-08-14] MEDS: Albuterol/Ipratropium Neb 3 ML AERS HHN SCH ×3 (07:18→19:44)
[2017-08-14] MEDS: INSULIN ASPART, RECOMBINANT 100 UNITS/ML SUBQ SCH ×3 (07:40→22:35)
[2017-08-14] MEDS: Insulin Detemir 100 units/mL 10mL Vial SUBQ SCH ×2 (09:00→18:56)
[2017-08-14] MEDS: OLANZapine 5 mg Oral Disintegrating Tab PO SCH ×2 (09:00→17:00)
[2017-08-14] MEDS: Lactobacillus Rhamnosus GG 15 Billion CFU CAP.SPRINK PO SCH ×2 (09:00→14:08)
[2017-08-14] MEDS: Ferrous Sulfate 325 MG TAB PO SCH ×2 (09:00→14:09)
[2017-08-14] MEDS: Venelex 60gm Tube TP SCH (09:00)
[2017-08-14] MEDS: FLUOCINONIDE 0.05% TP SCH ×2 (09:00→17:00)
[2017-08-14] MEDS: Levothyroxine 0.025 Mg Tab PO SCH ×2 (09:00→14:09)
--- NOTE | 2017-08-14 16:23 | Infectious Disease Prog Note ---
Infectious Disease Subjective - Review of Systems Service Date: 08/14/17 Subjective: There is no new change, no fever. Infectious Disease Objective - Results Result Diagrams: 08/14/17 06:01 08/14/17 06: Recent Labs: Laboratory Last Values WBC 3.9 Th/cmm (4.8-10.8) L 08/14/17 06:01 RBC 3.05 Mil/cmm (3.80-5.80) L 08/14/17 06:01 Hgb 7.9 gm/dL (12-16) L* 08/14/17 06:01 Hct 23.9 % (41.0-60) L 08/14/17 06: MCV 78.3 fl (80-99) L 08/14/17 06:01 MCH 25.8 pg (27.0-31.0) L 08/14/17 06: MCHC Differential 33.0 pg (28.0-36.0) 08/14/17 06:01 RDW 18.1 % (11.5-20.0) 08/14/17 06:01 Plt Count 152 Th/cmm (150-400) 08/14/17 06:01 MPV 7.1 fl 08/14/17 06:01 Neutrophils % 63.9 % (40.0-80.0) 08/14/17 06:01 Lymphocytes % 24.5 % (20.0-50.0) 08/14/17 06:01 Monocytes % 7.9 % (2.0-10.0) 08/14/17 06: Eosinophils % 2.2 % (0.0-5.0) 08/14/17 06: Basophils % 1.5 % (0.0-2.0) 08/14/17 06:01 Sodium 137 mEq/L (136-145) 08/14/17 06:01 Potassium 5.3 mEq/L (3.5-5.1) H 08/14/17 06:01 Chloride 109 mEq/L (98-107) H 08/14/17 06:01 Carbon Dioxide 21.0 mEq/L (21.0-31.0) 08/14/17 06:01 Anion Gap 12.3 (7.0-16.0) 08/14/17 06:01 BUN 58 mg/dL (7-25) H 08/14/17 06:01 Creatinine 2.2 mg/dL (0.7-1.3) H 08/14/17 06:01 Est GFR ( Amer) 38.2 ml/min (>90) 08/14/17 06:01 Est GFR (Non-Af Amer) 31.6 ml/min 08/14/17 06:01 BUN/Creatinine Ratio 26.4 08/14/17 06:01 Glucose 104 mg/dL (70-105) 08/14/17 06:01 POC Glucose 127 MG/DL (70 - 105) H 08/13/17 16:45 Calcium 9.1 mg/dL (8.6-10.3) 08/14/17 06:01 Random Vancomycin 11.5 ug/mL (5.0-40.0) 08/14/17 06:01 - Physical Exam Vitals and I&O: Vital Signs Temp 97.4 F 08/14/17 08:00 Pulse 92 08/14/17 14:09 Resp 16 08/14/17 12:21 BP 108/69 08/14/17 14:09 Pulse Ox 99 08/14/17 12:21 Intake & Output 08/13/17 08/14/17 08/14/17 18:59 06:59 18:59 Intake Total 600 Balance 600 Weight (lbs) 74.843 kg Intake: Oral 600 Other: Weight Source Estimated Active Medications: Current Medications Acetaminophen (Tylenol) 650 mg PO Q4H PRN PRN Reason: Pain or Fever >101 Stop: 10/12/17 02:08 Last Admin: 08/14/17 03:18 Dose: 650 mg Acetaminophen/Hydrocodone Bitart ([place] 5mg/325mg) 1 tab PO Q4H PRN PRN Reason: mild pain Stop: 10/12/17 02:10 Al Hydrox/Mg Hydrox/Simethicone (Maalox) 30 ml PO Q6HR PRN PRN Reason: GI DISTRESS Stop: 10/12/17 02:10 Albuterol/Ipratropium (Duoneb Neb) 3 ml HHN Q6HRT MATHEW Stop: 10/12/17 06:59 Last Admin: 08/14/17 12:20 Dose: 3 ml Albuterol/Ipratropium (Duoneb Neb) 3 ml HHN [id number] [facility] Stop: 10/12/17 06:59 Amiodarone HCl (Cordarone) 200 mg PO DAILY MATHEW Stop: 10/12/17 08:59 Last Admin: 08/14/17 09:00 Dose: Not Given Atorvastatin Calcium (Lipitor) 20 mg PO HS MATHEW PRN Reason: Protocol Stop: 10/12/17 20:59 Last Admin: 08/13/17 20:59 Dose: Not Given Carvedilol (Coreg) 3.125 mg PO Q12HR MATHEW Stop: 10/12/17 08:59 Last Admin: 08/14/17 11:13 Dose: Not Given [place] Oil/Italian Balsam/Trypsin (Venelex) 1 appl TP DAILY [facility] Stop: 10/12/17 08:59 Last Admin: 08/14/17 09:00 Dose: Not Given Digoxin (Lanoxin) 0.125 mg PO HS MATHEW Stop: 10/12/17 20:59 Last Admin: 08/13/17 20:59 Dose: Not Given Donepezil HCl (Aricept) 5 mg PO HS [facility] Stop: 10/12/17 20:59 Last Admin: 08/13/17 21:00 Dose: Not Given Dutasteride (Avodart) 0.5 mg PO DAILY MATHEW PRN Reason: Protocol Stop: 10/12/17 08:59 Last Admin: 08/14/17 14:08 Dose: 0.5 mg Ferrous Sulfate (Iron) 325 mg PO DAILY MATHEW Stop: 10/12/17 08:59 Last Admin: 08/14/17 14:09 Dose: 325 mg Fluocinonide (Fluocinonide 60 Ml) 2 appl TP BID MATHEW Stop: 10/12/17 08:59 Last Admin: 08/14/17 09:00 Dose: Not Given Insulin Aspart (Novolog) 0 units SUBQ ACHS MATHEW PRN Reason: Protocol Stop: 10/12/17 07:29 Last Admin: 08/14/17 14:21 Dose: Not Given Insulin Detemir (Levemir Insulin) 15 units SUBQ BID MATHEW PRN Reason: Protocol Stop: 10/12/17 08:59 Last Admin: 08/14/17 09:00 Dose: Not Given Lactobacillus Rhamnosus (Culturelle 15b) 1 each PO DAILY MATHEW Stop: 10/12/17 08:59 Last Admin: 08/14/17 14:08 Dose: 1 each Levothyroxine Sodium (Synthroid) 0.025 mg PO QDAC [facility] Stop: 10/12/17 07:29 Last Admin: 08/14/17 14:09 Dose: 0.025 mg Lisinopril (Zestril) 2.5 mg PO DAILY [facility] Stop: 10/12/17 08:59 Last Admin: 08/14/17 14:09 Dose: 2.5 mg Magnesium Hydroxide (Milk Of Magnesia) 30 ml PO HS PRN PRN Reason: Constipation Stop: 10/12/17 02:10 Miscellaneous (Vancomycin Iv Per Pharmacy) 1 ea MC PRN PRN PRN Reason: PROTOCOL Stop: 10/12/17 01:59 Nabumetone (Relafen) 750 mg PO BID [facility] Stop: 10/12/17 08:59 Last Admin: 08/14/17 09:00 Dose: Not Given Nitroglycerin (Nitrostat) 0.4 mg SL Q5MIN PRN PRN Reason: Chest Pain Stop: 10/12/17 02:10 Olanzapine (Zyprexa Zydis) 5 mg PO BID MATHEW PRN Reason: Protocol Stop: 10/12/17 08:59 Last Admin: 08/14/17 09:00 Dose: Not Given Rivaroxaban (Xarelto) 15 mg PO DAILY [facility] Stop: 10/12/17 08:59 Last Admin: 08/14/17 11:18 Dose: Not Given Spironolactone (Aldactone) 25 mg PO DAILY [facility] Stop: 10/12/17 08:59 Last Admin: 08/14/17 09:00 Dose: Not Given Tamsulosin HCl (Flomax) 0.4 mg PO DAILY MATHEW Stop: 10/12/17 08:59 Last Admin: 08/14/17 09:00 Dose: Not Given Valsartan (Diovan) 20 mg PO DAILY [facility] Stop: 10/12/17 08:59 Last Admin: 08/14/17 09:00 Dose: Not Given General: no acute distress, well developed, well nourished HEENT: atraumatic, normocephalic, PERRLA, EOMI Neck: supple, no thyromegaly Cardiovascular: S1S2, regular Lungs: clear to auscultation bilaterally, clear to percussion Abdomen: soft, no tender, no distended, no mass Extremities: no cyanosis, no clubbing, no edema Neurological: awake, alert, oriented Skin: intact Infectious Disease Assmt/Plan - Assessment Assessment: 1. Cellulitis of both legs. With open nonhealing complicated wound. Cellulitis of left foot. 2. Left forearm wound. 3. Diabetes mellitus type 2. 4. Hypertension. 5. Hyperlipidemia. - Plan Plan: Continue the same treatment. Continue vancomyocin IV and wound care. Nutritional Asmnt/Malnutr-PDOC - Dietary Evaluation Malnutrition Findings (Please click <Entered> for more info): Nutritional Asmnt/Malnutrition Start: 08/13/17 11: 40 Text: Status: Cancelled Freq: Document 08/13/17 11:41 RODO (Rec: 08/13/17 11:45 [email or web address] [id number]- [id number]) Nutritional Asmnt/Malnutrition Patient General Information Nutritional Screening Consult Diagnosis Bilateral LE wound Pertinent Medical Hx/Surgical Hx no PMH as of 08/13 @ 1000 Subjective Information PT asleep in bed at time of visit Current Diet Order/ Nutrition Support [facility] Pertinent Medications maalox, lipiotr, Fe, lasix, novolog, synthroid, vancomycin , KCl Pertinent Labs 08/13: Na 139, K 5.4, Cl 109, Co2 23.2, BUN 52, Cr 2.1, Ca 8 .8, glucose 148 Nutritional Hx/Data Height 1.83 m Height (Calculated Centimeters) 182.9 Current Weight (lbs) 74.843 kg Weight (Calculated Kilograms) 74.8 Weight (Calculated Grams) 48351.7 Body Mass Index (BMI) 22.4 Weight Status Approriate GI Symptoms GI Symptoms None Last BM none noted Cultural/Ethnic/Taoism Belief unknown Usual diet at home unknown Skin Integrity/Comment: stacey score 18 Estimated Nutritional Goals BEE in Kcals: Using Current wt Calories/Kcals/Kg 28-33kcals/kg Kcals Calculated 2100-2475kcals/day Protein: Using Current wt Protein g/k.2g/kg Protein Calculated 90g/day Fluid: ml per MD Nutritional Problem 1. Problem Problem No nutrition diagnosis at this time Intervention/Recommendation Comments Recommend continuing [facility] diet Expected Outcomes/Goals Expected Outcomes/Goals PO intake >75% of meals
--- NOTE | 2017-08-14 16:25 | Infectious Disease Prog Note ---
Infectious Disease Subjective - Review of Systems Service Date: 08/14/17 Subjective: There is no new change, no fever. Infectious Disease Objective - Results Result Diagrams: 08/14/17 06:01 08/14/17 06: Recent Labs: Laboratory Last Values WBC 3.9 Th/cmm (4.8-10.8) L 08/14/17 06:01 RBC 3.05 Mil/cmm (3.80-5.80) L 08/14/17 06:01 Hgb 7.9 gm/dL (12-16) L* 08/14/17 06:01 Hct 23.9 % (41.0-60) L 08/14/17 06: MCV 78.3 fl (80-99) L 08/14/17 06:01 MCH 25.8 pg (27.0-31.0) L 08/14/17 06: MCHC Differential 33.0 pg (28.0-36.0) 08/14/17 06:01 RDW 18.1 % (11.5-20.0) 08/14/17 06:01 Plt Count 152 Th/cmm (150-400) 08/14/17 06:01 MPV 7.1 fl 08/14/17 06:01 Neutrophils % 63.9 % (40.0-80.0) 08/14/17 06:01 Lymphocytes % 24.5 % (20.0-50.0) 08/14/17 06:01 Monocytes % 7.9 % (2.0-10.0) 08/14/17 06: Eosinophils % 2.2 % (0.0-5.0) 08/14/17 06: Basophils % 1.5 % (0.0-2.0) 08/14/17 06:01 Sodium 137 mEq/L (136-145) 08/14/17 06:01 Potassium 5.3 mEq/L (3.5-5.1) H 08/14/17 06:01 Chloride 109 mEq/L (98-107) H 08/14/17 06:01 Carbon Dioxide 21.0 mEq/L (21.0-31.0) 08/14/17 06:01 Anion Gap 12.3 (7.0-16.0) 08/14/17 06:01 BUN 58 mg/dL (7-25) H 08/14/17 06:01 Creatinine 2.2 mg/dL (0.7-1.3) H 08/14/17 06:01 Est GFR ( Amer) 38.2 ml/min (>90) 08/14/17 06:01 Est GFR (Non-Af Amer) 31.6 ml/min 08/14/17 06:01 BUN/Creatinine Ratio 26.4 08/14/17 06:01 Glucose 104 mg/dL (70-105) 08/14/17 06:01 POC Glucose 127 MG/DL (70 - 105) H 08/13/17 16:45 Calcium 9.1 mg/dL (8.6-10.3) 08/14/17 06:01 Random Vancomycin 11.5 ug/mL (5.0-40.0) 08/14/17 06:01 - Physical Exam Vitals and I&O: Vital Signs Temp 97.4 F 08/14/17 08:00 Pulse 92 08/14/17 14:09 Resp 16 08/14/17 12:21 BP 108/69 08/14/17 14:09 Pulse Ox 99 08/14/17 12:21 Intake & Output 08/13/17 08/14/17 08/14/17 18:59 06:59 18:59 Intake Total 600 Balance 600 Weight (lbs) 74.843 kg Intake: Oral 600 Other: Weight Source Estimated Active Medications: Current Medications Acetaminophen (Tylenol) 650 mg PO Q4H PRN PRN Reason: Pain or Fever >101 Stop: 10/12/17 02:08 Last Admin: 08/14/17 03:18 Dose: 650 mg Acetaminophen/Hydrocodone Bitart ([place] 5mg/325mg) 1 tab PO Q4H PRN PRN Reason: mild pain Stop: 10/12/17 02:10 Al Hydrox/Mg Hydrox/Simethicone (Maalox) 30 ml PO Q6HR PRN PRN Reason: GI DISTRESS Stop: 10/12/17 02:10 Albuterol/Ipratropium (Duoneb Neb) 3 ml HHN Q6HRT MATHEW Stop: 10/12/17 06:59 Last Admin: 08/14/17 12:20 Dose: 3 ml Albuterol/Ipratropium (Duoneb Neb) 3 ml HHN [id number] [facility] Stop: 10/12/17 06:59 Amiodarone HCl (Cordarone) 200 mg PO DAILY MATHEW Stop: 10/12/17 08:59 Last Admin: 08/14/17 09:00 Dose: Not Given Atorvastatin Calcium (Lipitor) 20 mg PO HS MATHEW PRN Reason: Protocol Stop: 10/12/17 20:59 Last Admin: 08/13/17 20:59 Dose: Not Given Carvedilol (Coreg) 3.125 mg PO Q12HR [facility] Stop: 10/12/17 08:59 Last Admin: 08/14/17 11:13 Dose: Not Given [place] Oil/[place] Balsam/Trypsin (Venelex) 1 appl TP DAILY [facility] Stop: 10/12/17 08:59 Last Admin: 08/14/17 09:00 Dose: Not Given Digoxin (Lanoxin) 0.125 mg PO HS MAT[facility]W Stop: 10/12/17 20:59 Last Admin: 08/13/17 20:59 Dose: Not Given Donepezil HCl (Aricept) 5 mg PO HS [facility] Stop: 10/12/17 20:59 Last Admin: 08/13/17 21:00 Dose: Not Given Dutasteride (Avodart) 0.5 mg PO DAILY MATHEW PRN Reason: Protocol Stop: 10/12/17 08:59 Last Admin: 08/14/17 14:08 Dose: 0.5 mg Ferrous Sulfate (Iron) 325 mg PO DAILY [facility] Stop: 10/12/17 08:59 Last Admin: 08/14/17 14:09 Dose: 325 mg Fluocinonide (Fluocinonide 60 Ml) 2 appl TP BID [facility] Stop: 10/12/17 08:59 Last Admin: 08/14/17 09:00 Dose: Not Given Insulin Aspart (Novolog) 0 units SUBQ ACHS MATHEW PRN Reason: Protocol Stop: 10/12/17 07:29 Last Admin: 08/14/17 14:21 Dose: Not Given Insulin Detemir (Levemir Insulin) 15 units SUBQ BID MAT[facility]W PRN Reason: Protocol Stop: 10/12/17 08:59 Last Admin: 08/14/17 09:00 Dose: Not Given Lactobacillus Rhamnosus (Culturelle 15b) 1 each PO DAILY [facility] Stop: 10/12/17 08:59 Last Admin: 08/14/17 14:08 Dose: 1 each Levothyroxine Sodium (Synthroid) 0.025 mg PO QDAC [facility] Stop: 10/12/17 07:29 Last Admin: 08/14/17 14:09 Dose: 0.025 mg Lisinopril (Zestril) 2.5 mg PO DAILY [facility] Stop: 10/12/17 08:59 Last Admin: 08/14/17 14:09 Dose: 2.5 mg Magnesium Hydroxide (Milk Of Magnesia) 30 ml PO HS PRN PRN Reason: Constipation Stop: 10/12/17 02:10 Miscellaneous (Vancomycin Iv Per Pharmacy) 1 ea MC PRN PRN PRN Reason: PROTOCOL Stop: 10/12/17 01:59 Nabumetone (Relafen) 750 mg PO BID [facility] Stop: 10/12/17 08:59 Last Admin: 08/14/17 09:00 Dose: Not Given Nitroglycerin (Nitrostat) 0.4 mg SL Q5MIN PRN PRN Reason: Chest Pain Stop: 10/12/17 02:10 Olanzapine (Zyprexa Zydis) 5 mg PO BID [facility]W PRN Reason: Protocol Stop: 10/12/17 08:59 Last Admin: 08/14/17 09:00 Dose: Not Given Rivaroxaban (Xarelto) 15 mg PO DAILY [facility] Stop: 10/12/17 08:59 Last Admin: 08/14/17 11:18 Dose: Not Given Spironolactone (Aldactone) 25 mg PO DAILY [facility] Stop: 10/12/17 08:59 Last Admin: 08/14/17 09:00 Dose: Not Given Tamsulosin HCl (Flomax) 0.4 mg PO DAILY [facility] Stop: 10/12/17 08:59 Last Admin: 08/14/17 09:00 Dose: Not Given Valsartan (Diovan) 20 mg PO DAILY [facility] Stop: 10/12/17 08:59 Last Admin: 08/14/17 09:00 Dose: Not Given General: no acute distress, well developed, well nourished HEENT: atraumatic, normocephalic, PERRLA, EOMI Neck: supple, no thyromegaly, no lymphadenopathy Cardiovascular: S1S2, regular Lungs: clear to auscultation bilaterally, clear to percussion, no crackles, no wheeze, no rhonchi Abdomen: soft, hepatomegaly, no tender, no distended Extremities: other ( No cyanosis no clubbing no edema. Patient has chronic nonhealing wound both legs with some surrounding erythema. Erythema is worse on the left side. The erythema of the left legs extended to the dorsum of the foot. There is open ulcer of left forearm.), no cyanosis, no clubbing, no edema Neurological: awake, alert, oriented Infectious Disease Assmt/Plan - Assessment Assessment: 1. Cellulitis of both legs. With open nonhealing complicated wound. Cellulitis of left foot. 2. Left forearm wound. No need of antibiotic for this indication. 3. Diabetes mellitus type 2. 4. Hypertension. 5. Hyperlipidemia. - Plan Plan: Continue the same treatment. Continue vancomyocin IV and wound care. Nutritional Asmnt/Malnutr-PDOC - Dietary Evaluation Malnutrition Findings (Please click <Entered> for more info): Nutritional Asmnt/Malnutrition Start: 08/13/17 11: 40 Text: Status: Cancelled Freq: Document 08/13/17 11:41 JULIANIFFJENNIFER (Rec: 08/13/17 11:45 EGRIFFITH SPEEDY- [email or web address]) Nutritional Asmnt/Malnutrition Patient General Information Nutritional Screening Consult Diagnosis Bilateral LE wound Pertinent Medical Hx/Surgical Hx no PMH as of 08/13 @ 1000 Subjective Information PT asleep in bed at time of visit Current Diet Order/ Nutrition Support CCHO Pertinent Medications maalox, lipiotr, Fe, lasix, novolog, synthroid, vancomycin , KCl Pertinent Labs 08/13: Na 139, K 5.4, Cl 109, Co2 23.2, BUN 52, Cr 2.1, Ca 8 .8, glucose 148 Nutritional Hx/Data Height 1.83 m Height (Calculated Centimeters) 182.9 Current Weight (lbs) 74.843 kg Weight (Calculated Kilograms) 74.8 Weight (Calculated Grams) 62120.7 Body Mass Index (BMI) 22.4 Weight Status Approriate GI Symptoms GI Symptoms None Last BM none noted Cultural/Ethnic/Nondenominational Belief unknown Usual diet at home unknown Skin Integrity/Comment: stacey score 18 Estimated Nutritional Goals BEE in Kcals: Using Current wt Calories/Kcals/Kg 28-33kcals/kg Kcals Calculated 2100-2475kcals/day Protein: Using Current wt Protein g/k.2g/kg Protein Calculated 90g/day Fluid: ml per MD Nutritional Problem 1. Problem Problem No nutrition diagnosis at this time Intervention/Recommendation Comments Recommend continuing [facility] diet Expected Outcomes/Goals Expected Outcomes/Goals PO intake >75% of meals
--- NOTE | 2017-08-14 18:08 | Progress Notes ---
DATE: 08/14/2017 SUBJECTIVE: Chart reviewed and the patient interviewed. Also discussed the patient's condition with the staff and reviewed records and labs. The patient is still agitated and is still in irritable mood. The patient also is still suspicious and paranoid. The patient also is still demanding. Also, is still having a problem with mood. Otherwise, the patient seems to be slightly easier to redirect him. ASSESSMENT: The patient is still agitated, but seems to be calmer than before. TREATMENT PLAN: Continue to monitor behavior and condition closely. Also, continue to evaluate any change in his medications. JOB# [id number]
--- NOTE | 2017-08-14 18:36 | General Progress Note ---
Subjective - Review of Systems Service Date: 08/14/17 Subjective: Patient seen and examined per nursing staff patient has been refusing treatment since am Objective - Results Result Diagrams: 08/14/17 06:01 08/14/17 06:01 Recent Labs: Laboratory Last Values WBC 3.9 Th/cmm (4.8-10.8) L 08/14/17 06:01 RBC 3.05 Mil/cmm (3.80-5.80) L 08/14/17 06:01 Hgb 7.9 gm/dL (12-16) L* 08/14/17 06:01 Hct 23.9 % (41.0-60) L 08/14/17 06:01 MCV 78.3 fl (80-99) L 08/14/17 06:01 MCH 25.8 pg (27.0-31.0) L 08/14/17 06:01 MCHC Differential 33.0 pg (28.0-36.0) 08/14/17 06:01 RDW 18.1 % (11.5-20.0) 08/14/17 06:01 Plt Count 152 Th/cmm (150-400) 08/14/17 06:01 MPV 7.1 fl 08/14/17 06:01 Neutrophils % 63.9 % (40.0-80.0) 08/14/17 06:01 Lymphocytes % 24.5 % (20.0-50.0) 08/14/17 06:01 Monocytes % 7.9 % (2.0-10.0) 08/14/17 06: Eosinophils % 2.2 % (0.0-5.0) 08/14/17 06: Basophils % 1.5 % (0.0-2.0) 08/14/17 06:01 Sodium 137 mEq/L (136-145) 08/14/17 06:01 Potassium 5.3 mEq/L (3.5-5.1) H 08/14/17 06:01 Chloride 109 mEq/L (98-107) H 08/14/17 06:01 Carbon Dioxide 21.0 mEq/L (21.0-31.0) 08/14/17 06:01 Anion Gap 12.3 (7.0-16.0) 08/14/17 06:01 BUN 58 mg/dL (7-25) H 08/14/17 06:01 Creatinine 2.2 mg/dL (0.7-1.3) H 08/14/17 06:01 Est GFR ( Amer) 38.2 ml/min (>90) 08/14/17 06:01 Est GFR (Non-Af Amer) 31.6 ml/min 08/14/17 06:01 BUN/Creatinine Ratio 26.4 08/14/17 06:01 Glucose 104 mg/dL (70-105) 08/14/17 06:01 POC Glucose 127 MG/DL (70 - 105) H 08/13/17 16:45 Calcium 9.1 mg/dL (8.6-10.3) 08/14/17 06:01 Random Vancomycin 11.5 ug/mL (5.0-40.0) 08/14/17 06:01 - Physical Exam Vitals and I&O: Vital Signs Temp 97.4 F 08/14/17 08:00 Pulse 92 08/14/17 14:09 Resp 16 08/14/17 12:21 BP 108/69 08/14/17 14:09 Pulse Ox 99 08/14/17 12:21 Intake & Output 08/13/17 08/14/17 08/14/17 18:59 06:59 18:59 Intake Total 600 Balance 600 Weight (lbs) 74.843 kg Intake: Oral 600 Other: Weight Source Estimated Active Medications: Current Medications Acetaminophen (Tylenol) 650 mg PO Q4H PRN PRN Reason: Pain or Fever >101 Stop: 10/12/17 02:08 Last Admin: 08/14/17 03:18 Dose: 650 mg Acetaminophen/Hydrocodone Bitart ([place] 5mg/325mg) 1 tab PO Q4H PRN PRN Reason: mild pain Stop: 10/12/17 02:10 Al Hydrox/Mg Hydrox/Simethicone (Maalox) 30 ml PO Q6HR PRN PRN Reason: GI DISTRESS Stop: 10/12/17 02:10 Albuterol/Ipratropium (Duoneb Neb) 3 ml HHN Q6HRT [facility] Stop: 10/12/17 06:59 Last Admin: 08/14/17 12:20 Dose: 3 ml Albuterol/Ipratropium (Duoneb Neb) 3 ml HHN [id number] [facility] Stop: 10/12/17 06:59 Amiodarone HCl (Cordarone) 200 mg PO DAILY [facility] Stop: 10/12/17 08:59 Last Admin: 08/14/17 09:00 Dose: Not Given Atorvastatin Calcium (Lipitor) 20 mg PO HS [facility]W PRN Reason: Protocol Stop: 10/12/17 20:59 Last Admin: 08/13/17 20:59 Dose: Not Given Carvedilol (Coreg) 3.125 mg PO Q12HR [facility] Stop: 10/12/17 08:59 Last Admin: 08/14/17 11:13 Dose: Not Given [place] Oil/[place] Balsam/Trypsin (Venelex) 1 appl TP DAILY [facility] Stop: 10/12/17 08:59 Last Admin: 08/14/17 09:00 Dose: Not Given Digoxin (Lanoxin) 0.125 mg PO HS [facility] Stop: 10/12/17 20:59 Last Admin: 08/13/17 20:59 Dose: Not Given Donepezil HCl (Aricept) 5 mg PO HS [facility] Stop: 10/12/17 20:59 Last Admin: 08/13/17 21:00 Dose: Not Given Dutasteride (Avodart) 0.5 mg PO DAILY [facility] PRN Reason: Protocol Stop: 10/12/17 08:59 Last Admin: 08/14/17 14:08 Dose: 0.5 mg Ferrous Sulfate (Iron) 325 mg PO DAILY [facility] Stop: 10/12/17 08:59 Last Admin: 08/14/17 14:09 Dose: 325 mg Fluocinonide (Fluocinonide 60 Ml) 2 appl TP BID [facility] Stop: 10/12/17 08:59 Last Admin: 08/14/17 09:00 Dose: Not Given Insulin Aspart (Novolog) 0 units SUBQ ACHS [facility]HEW PRN Reason: Protocol Stop: 10/12/17 07:29 Last Admin: 08/14/17 14:21 Dose: Not Given Insulin Detemir (Levemir Insulin) 15 units SUBQ BID [facility]W PRN Reason: Protocol Stop: 10/12/17 08:59 Last Admin: 08/14/17 09:00 Dose: Not Given Lactobacillus Rhamnosus (Culturelle 15b) 1 each PO DAILY [facility] Stop: 10/12/17 08:59 Last Admin: 08/14/17 14:08 Dose: 1 each Levothyroxine Sodium (Synthroid) 0.025 mg PO QDAC [facility] Stop: 10/12/17 07:29 Last Admin: 08/14/17 14:09 Dose: 0.025 mg Lisinopril (Zestril) 2.5 mg PO DAILY [facility] Stop: 10/12/17 08:59 Last Admin: 08/14/17 14:09 Dose: 2.5 mg Magnesium Hydroxide (Milk Of Magnesia) 30 ml PO HS PRN PRN Reason: Constipation Stop: 10/12/17 02:10 Miscellaneous (Vancomycin Iv Per Pharmacy) 1 ea MC PRN PRN PRN Reason: PROTOCOL Stop: 10/12/17 01:59 Nabumetone (Relafen) 750 mg PO BID [facility] Stop: 10/12/17 08:59 Last Admin: 08/14/17 09:00 Dose: Not Given Nitroglycerin (Nitrostat) 0.4 mg SL Q5MIN PRN PRN Reason: Chest Pain Stop: 10/12/17 02:10 Olanzapine (Zyprexa Zydis) 5 mg PO BID [facility]W PRN Reason: Protocol Stop: 10/12/17 08:59 Last Admin: 08/14/17 09:00 Dose: Not Given Rivaroxaban (Xarelto) 15 mg PO DAILY [facility] Stop: 10/12/17 08:59 Last Admin: 08/14/17 11:18 Dose: Not Given Spironolactone (Aldactone) 25 mg PO DAILY [facility] Stop: 10/12/17 08:59 Last Admin: 08/14/17 09:00 Dose: Not Given Tamsulosin HCl (Flomax) 0.4 mg PO DAILY [facility] Stop: 10/12/17 08:59 Last Admin: 08/14/17 09:00 Dose: Not Given Valsartan (Diovan) 20 mg PO DAILY [facility] Stop: 10/12/17 08:59 Last Admin: 08/14/17 09:00 Dose: Not Given General: No acute distress Cardiovascular: Regular rate Lungs: Clear to auscultation Extremities: Other (open wound with surrouding erythema with discharge noted) Assessment/Plan - Assessment Assessment: BILATERAL LEG CELLULITIS DM II CHF HYPERLIPIDEMIA HYPOTHYRODISM NON COMPLIANCE MENTAL HEALTH DISORDER - Plan Plan: Discussed with the patient re: need for treatment for his cellulitis Continue current treatment Wound care Accucheck Psych follow up Nutritional Asmnt/Malnutr-PDOC - Dietary Evaluation Malnutrition Findings (Please click <Entered> for more info): Nutritional Asmnt/Malnutrition Start: 08/13/17 11: 40 Text: Status: Cancelled Freq: Document 08/13/17 11:41 RODO (Rec: 08/13/17 11:45 RODO CAON- [email or web address]) Nutritional Asmnt/Malnutrition Patient General Information Nutritional Screening Consult Diagnosis Bilateral LE wound Pertinent Medical Hx/Surgical Hx no PMH as of 08/13 @ 1000 Subjective Information PT asleep in bed at time of visit Current Diet Order/ Nutrition Support CCHO Pertinent Medications maalox, lipiotr, Fe, lasix, novolog, synthroid, vancomycin , KCl Pertinent Labs 08/13: Na 139, K 5.4, Cl 109, Co2 23.2, BUN 52, Cr 2.1, Ca 8 .8, glucose 148 Nutritional Hx/Data Height 1.83 m Height (Calculated Centimeters) 182.9 Current Weight (lbs) 74.843 kg Weight (Calculated Kilograms) 74.8 Weight (Calculated Grams) 66800.7 Body Mass Index (BMI) 22.4 Weight Status Approriate GI Symptoms GI Symptoms None Last BM none noted Cultural/Ethnic/Jewish Belief unknown Usual diet at home unknown Skin Integrity/Comment: stacey score 18 Estimated Nutritional Goals BEE in Kcals: Using Current wt Calories/Kcals/Kg 28-33kcals/kg Kcals Calculated 2100-2475kcals/day Protein: Using Current wt Protein g/k.2g/kg Protein Calculated 90g/day Fluid: ml per MD Nutritional Problem 1. Problem Problem No nutrition diagnosis at this time Intervention/Recommendation Comments Recommend continuing [facility] [place] diet Expected Outcomes/Goals Expected Outcomes/Goals PO intake >75% of meals
[2017-08-14] MEDS: Atorvastatin Calcium 10 MG TAB PO SCH (22:25)
[2017-08-15] MEDS: Albuterol/Ipratropium Neb 3 ML AERS HHN SCH ×4 (00:53→18:57)
[2017-08-15 06:04] LABS: % BASOPHILS 1.6 % (0.0-2.0); % EOSINOPHILS 2.8 % (0.0-5.0); % LYMPHOCYTES 23.1 % (20.0-50.0); % MONOCYTES 7.6 % (2.0-10.0); % NEUTROPHILS 64.9 % (40.0-80.0); BASOPHILE ABSOLUTE 0.1 Th/cumm (0-0.2); EOSINOPHILE ABSOLUTE 0.1 Th/cmm (0.1-0.4); LYMPHOCYTE ABSOLUTE 0.8 Th/cmm (1.5-3.0); MEAN CELL VOLUME 77.5 fl (80-99); MEAN CORPUSCULAR HEMOGLOBIN 26.1 pg (27.0-31.0); MEAN CORPUSCULAR HGB CONC 33.7 pg (28.0-36.0); MEAN PLATELET VOLUME 7.1 fl; MONOCYTE ABSOLUTE 0.3 Th/cmm (0.3-1.0); NEUTROPHILE ABSOLUTE 2.1 Th/cmm (1.8-8.0); PLATELET COUNT 156 Th/cmm (150-400); RED BLOOD COUNT 2.77 Mil/cmm (3.80-5.80); RED CELL DISTRIBUTION WIDTH 18.5 % (11.5-20.0)
[2017-08-15 06:09] LABS: ANION GAP 9.8 (7.0-16.0); CALCIUM SERUM 8.8 mg/dL (8.6-10.3); CARBON DIOXIDE 23.4 mEq/L (21.0-31.0); CREATININE - SERUM 2.3 mg/dL (0.7-1.3); GFR AFRICAN-AMERICAN 36.3 ml/min (>90); POTASSIUM SERUM 5.2 mEq/L (3.5-5.1)
[2017-08-15 06:33] LABS: HEMATOCRIT 21.5 % (41.0-60); HEMOGLOBIN 7.3 gm/dL (12-16); WHITE BLOOD COUNT 3.4 Th/cmm (4.8-10.8)
[2017-08-15] MEDS: Levothyroxine 0.025 Mg Tab PO SCH (06:38)
[2017-08-15] MEDS: Ferrous Sulfate 325 MG TAB PO SCH (08:33)
[2017-08-15] MEDS: Lactobacillus Rhamnosus GG 15 Billion CFU CAP.SPRINK PO SCH ×2 (08:33→08:51)
[2017-08-15] MEDS: INSULIN ASPART, RECOMBINANT 100 UNITS/ML SUBQ SCH ×7 (08:37→22:21)
[2017-08-15] MEDS: Insulin Detemir 100 units/mL 10mL Vial SUBQ SCH ×3 (08:37→17:48)
--- NOTE | 2017-08-15 08:42 | Progress Notes ---
DATE: SUBJECTIVE: Chart reviewed and the patient interviewed. Also discussed the patient's condition with the staff and reviewed records and labs. The patient is still agitated and he still has difficulty sleeping at night. The patient also has mood swings and is still in angry and irritable mood. The patient also is asking to be discharged, but at the same time, unable to provide any safe plan for self-care and is still resisting care. He also is having a severe mood swings. Otherwise, the patient is slightly easier to redirect him. ASSESSMENT: The patient is still agitated. TREATMENT PLAN: We will start the patient on Seroquel in a dose of 12.5 mg twice a day. Also, we will continue to monitor his behavior and we will continue to follow up. JOB# [id number]
[2017-08-15] MEDS: Venelex 60gm Tube TP SCH ×3 (08:49→11:33)
[2017-08-15] MEDS: FLUOCINONIDE 0.05% TP SCH ×2 (08:49→17:53)
[2017-08-15] MEDS: Hydrocodone/APAP 5mg/325mg Tab PO PRN ×2 (10:54→22:11)
[2017-08-15] MEDS: Sodium Ferric Gluconate 125 MG in Sodium Chloride 0.9% 100 ML IV SCH (12:49)
--- NOTE | 2017-08-15 13:54 | Infectious Disease Prog Note ---
Infectious Disease Subjective - Review of Systems Service Date: 08/15/17 Subjective: There is no new change, no fever. Infectious Disease Objective - Results Result Diagrams: 08/15/17 05:33 08/15/17 05:33 Recent Labs: Laboratory Last Values WBC 3.4 Th/cmm (4.8-10.8) L 08/15/17 05:33 RBC 2.77 Mil/cmm (3.80-5.80) L 08/15/17 05:33 Hgb 7.3 gm/dL (12-16) L* 08/15/17 05:33 Hct 21.5 % (41.0-60) L 08/15/17 05:33 MCV 77.5 fl (80-99) L 08/15/17 05:33 MCH 26.1 pg (27.0-31.0) L 08/15/17 05:33 MCHC Differential 33.7 pg (28.0-36.0) 08/15/17 05:33 RDW 18.5 % (11.5-20.0) 08/15/17 05:33 Plt Count 156 Th/cmm (150-400) 08/15/17 05:33 MPV 7.1 fl 08/15/17 05:33 Neutrophils % 64.9 % (40.0-80.0) 08/15/17 05:33 Lymphocytes % 23.1 % (20.0-50.0) 08/15/17 05:33 Monocytes % 7.6 % (2.0-10.0) 08/15/17 05:33 Eosinophils % 2.8 % (0.0-5.0) 08/15/17 05:33 Basophils % 1.6 % (0.0-2.0) 08/15/17 05:33 Sodium 139 mEq/L (136-145) 08/15/17 05:33 Potassium 5.2 mEq/L (3.5-5.1) H 08/15/17 05:33 Chloride 111 mEq/L (98-107) H 08/15/17 05:33 Carbon Dioxide 23.4 mEq/L (21.0-31.0) 08/15/17 05:33 Anion Gap 9.8 (7.0-16.0) 08/15/17 05:33 BUN 59 mg/dL (7-25) H 08/15/17 05:33 Creatinine 2.3 mg/dL (0.7-1.3) H 08/15/17 05:33 Est GFR ( Amer) 36.3 ml/min (>90) 08/15/17 05:33 Est GFR (Non-Af Amer) 30.0 ml/min 08/15/17 05:33 BUN/Creatinine Ratio 25.7 08/15/17 05:33 Glucose 166 mg/dL (70-105) H 08/15/17 05:33 POC Glucose 212 MG/DL (70 - 105) H 08/15/17 11:42 Calcium 8.8 mg/dL (8.6-10.3) 08/15/17 05:33 Random Vancomycin 8.8 ug/mL (5.0-40.0) 08/15/17 05:33 - Physical Exam Vitals and I&O: Vital Signs Temp 98.0 F 08/15/17 12:00 Pulse 70 08/15/17 12:00 Resp 19 08/15/17 12:00 BP 128/71 08/15/17 12:00 Pulse Ox 99 08/15/17 12:00 Intake & Output 08/14/17 08/15/17 08/15/17 18:59 06:59 18:59 Intake Total 150 Balance 150 Weight (lbs) 74.843 kg Intake: Oral 150 Other: # Voids 3 # Bowel Movements 0 Weight Source Bedscale Active Medications: Current Medications Acetaminophen (Tylenol) 650 mg PO Q4H PRN PRN Reason: Pain or Fever >101 Stop: 10/12/17 02:08 Last Admin: 08/14/17 22:45 Dose: 650 mg Acetaminophen/Hydrocodone Bitart ([place] 5mg/325mg) 1 tab PO Q4H PRN PRN Reason: mild pain Stop: 10/12/17 02:10 Last Admin: 08/15/17 10:54 Dose: 1 tab Al Hydrox/Mg Hydrox/Simethicone (Maalox) 30 ml PO Q6HR PRN PRN Reason: GI DISTRESS Stop: 10/12/17 02:10 Albuterol/Ipratropium (Duoneb Neb) 3 ml HHN Q6HRT MATHEW Stop: 10/12/17 06:59 Last Admin: 08/15/17 07:08 Dose: 3 ml Albuterol/Ipratropium (Duoneb Neb) 3 ml HHN [id number] [facility] Stop: 10/12/17 06:59 Amiodarone HCl (Cordarone) 200 mg PO DAILY MATHEW Stop: 10/12/17 08:59 Last Admin: 08/15/17 08:52 Dose: Not Given Atorvastatin Calcium (Lipitor) 20 mg PO HS [facility] PRN Reason: Protocol Stop: 10/12/17 20:59 Last Admin: 08/14/17 22:25 Dose: 20 mg Carvedilol (Coreg) 3.125 mg PO Q12HR MATHEW Stop: 10/12/17 08:59 Last Admin: 08/15/17 08:51 Dose: Not Given [place] Oil/[place] Balsam/Trypsin (Venelex) 1 appl TP DAILY MATHEW Stop: 10/12/17 08:59 Last Admin: 08/15/17 11:33 Dose: 1 appl Digoxin (Lanoxin) 0.125 mg PO HS [facility] Stop: 10/12/17 20:59 Last Admin: 08/14/17 22:26 Dose: 0.125 mg Donepezil HCl (Aricept) 5 mg PO HS [facility] Stop: 10/12/17 20:59 Last Admin: 08/14/17 22:25 Dose: 5 mg Dutasteride (Avodart) 0.5 mg PO DAILY MATHEW PRN Reason: Protocol Stop: 10/12/17 08:59 Last Admin: 08/15/17 08:51 Dose: Not Given Epoetin Errol (Epogen) 10,000 units SUBQ MoWeFr MATHEW Stop: 10/14/17 14:59 Ferrous Sulfate (Iron) 325 mg PO DAILY MATHEW Stop: 10/12/17 08:59 Last Admin: 08/15/17 08:33 Dose: 325 mg Fluocinonide (Fluocinonide 60 Ml) 2 appl TP BID MATHEW Stop: 10/12/17 08:59 Last Admin: 08/15/17 08:49 Dose: Not Given Ferric Sodium Gluconate Complex 125 mg/ Sodium Chloride 110 mls @ 100 mls/hr IV Q24HR MATHEW Stop: 08/23/17 12:59 Last Admin: 08/15/17 12:49 Dose: 100 mls/hr Piperacillin Sod/Tazobactam (Sod 3.375 gm/ Sodium Chloride) 50 mls @ 100 mls/ hr IV Q6HR MATHEW Stop: 10/14/17 11:59 Last Admin: 08/15/17 13:27 Dose: 100 mls/hr Insulin Aspart (Novolog) 0 units SUBQ ACHS MATHEW PRN Reason: Protocol Stop: 10/12/17 07:29 Last Admin: 08/15/17 12:44 Dose: 4 unit Insulin Detemir (Levemir Insulin) 15 units SUBQ BID MATHEW PRN Reason: Protocol Stop: 10/12/17 08:59 Last Admin: 08/15/17 08:49 Dose: Not Given Lactobacillus Rhamnosus (Culturelle 15b) 1 each PO DAILY MATHEW Stop: 10/12/17 08:59 Last Admin: 08/15/17 08:51 Dose: Not Given Levothyroxine Sodium (Synthroid) 0.025 mg PO QDAC MATHEW Stop: 10/12/17 07:29 Last Admin: 08/15/17 06:38 Dose: 0.025 mg Lisinopril (Zestril) 2.5 mg PO DAILY [facility] Stop: 10/12/17 08:59 Last Admin: 08/15/17 08:51 Dose: Not Given Magnesium Hydroxide (Milk Of Magnesia) 30 ml PO HS PRN PRN Reason: Constipation Stop: 10/12/17 02:10 Miscellaneous (Vancomycin Iv Per Pharmacy) 1 ea MC PRN PRN PRN Reason: PROTOCOL Stop: 10/12/17 01:59 Nabumetone (Relafen) 750 mg PO BID [facility] Stop: 10/12/17 08:59 Last Admin: 08/15/17 08:49 Dose: Not Given Nitroglycerin (Nitrostat) 0.4 mg SL Q5MIN PRN PRN Reason: Chest Pain Stop: 10/12/17 02:10 Quetiapine Fumarate (Seroquel) 25 mg PO BID MATHEW PRN Reason: Protocol Stop: 10/14/17 08:59 Rivaroxaban (Xarelto) 15 mg PO DAILY [facility] Stop: 10/12/17 08:59 Last Admin: 08/15/17 08:31 Dose: 15 mg Spironolactone (Aldactone) 25 mg PO DAILY [facility] Stop: 10/12/17 08:59 Last Admin: 05/07/18 08:51 Dose: Not Given Tamsulosin HCl (Flomax) 0.4 mg PO DAILY [facility] Stop: 10/12/17 08:59 Last Admin: 08/15/17 08:51 Dose: Not Given Valsartan (Diovan) 20 mg PO DAILY [facility] Stop: 10/12/17 08:59 Last Admin: 08/15/17 08:51 Dose: Not Given General: no acute distress, well developed, well nourished HEENT: atraumatic, normocephalic, PERRLA, EOMI Neck: supple, no thyromegaly Cardiovascular: S1S2, regular Lungs: clear to auscultation bilaterally, clear to percussion Abdomen: soft, no tender, no distended Extremities: no cyanosis, no clubbing, no edema Neurological: awake, alert, oriented Skin: other (b/l leg ulcers and swellign of the left foot better,, erythema persists in the left foot.) Infectious Disease Assmt/Plan - Assessment Assessment: 1. Cellulitis of both legs. With open nonhealing complicated wound. Cellulitis of left foot. 2. Left forearm wound. No need of antibiotic for this indication. 3. Diabetes mellitus type 2. 4. Hypertension. 5. Hyperlipidemia. - Plan Plan: Continue the same treatment. Continue vancomyocin IV and wound care. Nutritional Asmnt/Malnutr-PDOC - Dietary Evaluation Malnutrition Findings (Please click <Entered> for more info): Nutritional Asmnt/Malnutrition Start: 08/13/17 11: 40 Text: Status: Cancelled Freq: Document 08/13/17 11:41 RODO (Rec: 08/13/17 11:45 RODO RUFF [id number]) Nutritional Asmnt/Malnutrition Patient General Information Nutritional Screening Consult Diagnosis Bilateral LE wound Pertinent Medical Hx/Surgical Hx no PMH as of 08/13 @ 1000 Subjective Information PT asleep in bed at time of visit Current Diet Order/ Nutrition Support [facility] Pertinent Medications maalox, lipiotr, Fe, lasix, novolog, synthroid, vancomycin , KCl Pertinent Labs 08/13: Na 139, K 5.4, Cl 109, Co2 23.2, BUN 52, Cr 2.1, Ca 8 .8, glucose 148 Nutritional Hx/Data Height 1.83 m Height (Calculated Centimeters) 182.9 Current Weight (lbs) 74.843 kg Weight (Calculated Kilograms) 74.8 Weight (Calculated Grams) 25002.7 Body Mass Index (BMI) 22.4 Weight Status Approriate GI Symptoms GI Symptoms None Last BM none noted Cultural/Ethnic/Mormonism Belief unknown Usual diet at home unknown Skin Integrity/Comment: stacey score 18 Estimated Nutritional Goals BEE in Kcals: Using Current wt Calories/Kcals/Kg 28-33kcals/kg Kcals Calculated 2100-2475kcals/day Protein: Using Current wt Protein g/k.2g/kg Protein Calculated 90g/day Fluid: ml per MD Nutritional Problem 1. Problem Problem No nutrition diagnosis at this time Intervention/Recommendation Comments Recommend continuing [facility] diet Expected Outcomes/Goals Expected Outcomes/Goals PO intake >75% of meals
[2017-08-15] MEDS: Epoetin Alfa 20000 Units/mL Vial SUBQ SCH (15:54)
[2017-08-15] MEDS: Atorvastatin Calcium 10 MG TAB PO SCH (22:09)
[2017-08-16] MEDS: Albuterol/Ipratropium Neb 3 ML AERS HHN SCH ×4 (00:25→19:00)
--- NOTE | 2017-08-16 04:53 | Progress Notes ---
DATE: PATIENT IDENTIFICATION: A 72-year-old male. CHIEF COMPLAINT: "I want to go home." SUBJECTIVE: The patient denies any chest pain, shortness of breath, palpitation, dizziness, nausea, vomiting, headache. PHYSICAL EXAMINATION: VITAL SIGNS: Temperature 98, pulse is 67, respiratory rate 18, blood pressure 105/54. HEENT: No facial asymmetry. Absent upper and lower dentition noted. NECK: Supple, no JVD, no hepatojugular reflex. No lymphadenopathy, thyromegaly or carotid bruits. HEART: Both heart sounds are regular. No S3, no S4. CHEST AND LUNGS: Equal in expansion. No wheezing, no crackles. ABDOMEN: Soft. No guarding, no rigidity. Bowel sounds present. No palpable mass. EXTREMITIES: Bilateral chronic venous stasis changes noted in both lower extremities with some ____. NEUROLOGIC: Alert, awake, follows commands. CLINICAL IMPRESSION: 1. Bilateral lower extremity cellulitis. 2. Diabetes. 3. Hypertension. 4. Hyperlipidemia. 5. Benign prostatic hypertrophy. 6. Congestive heart failure. 7. Chronic kidney disease 3. 8. Psych disorder. 9. Degenerative joint disease. 10. Status post AICD placement. PLAN: 1. IV antibiotic. 2. Local wound care. 3. Monitor blood sugar. 4. Diabetes management. 5. Antihypertensive medication. 6. Psych medication. 7. Psych followup. 8. Infectious Disease consultation. 9. Follow lab. 10. Follow consult recommendation. 11. Care plan reviewed and discussed with staff. JOB# [id number]
[2017-08-16 06:56] LABS: % BASOPHILS 1.6 % (0.0-2.0); % EOSINOPHILS 3.1 % (0.0-5.0); % NEUTROPHILS 65.3 % (40.0-80.0); BASOPHILE ABSOLUTE 0.1 Th/cumm (0-0.2); EOSINOPHILE ABSOLUTE 0.1 Th/cmm (0.1-0.4); LYMPHOCYTE ABSOLUTE 0.9 Th/cmm (1.5-3.0); MEAN CELL VOLUME 78.6 fl (80-99); MEAN CORPUSCULAR HEMOGLOBIN 25.6 pg (27.0-31.0); MEAN CORPUSCULAR HGB CONC 32.5 pg (28.0-36.0); MEAN PLATELET VOLUME 7.2 fl; MONOCYTE ABSOLUTE 0.3 Th/cmm (0.3-1.0); NEUTROPHILE ABSOLUTE 2.4 Th/cmm (1.8-8.0); PLATELET COUNT 155 Th/cmm (150-400); RED BLOOD COUNT 2.78 Mil/cmm (3.80-5.80); RED CELL DISTRIBUTION WIDTH 19.3 % (11.5-20.0)
[2017-08-16] MEDS: Levothyroxine 0.025 Mg Tab PO SCH (06:56)
[2017-08-16 06:59] LABS: ALBUMIN 2.8 gm/dL (4.2-5.5); ANION GAP 10.1 (7.0-16.0); BILIRUBIN,TOTAL 0.3 mg/dL (0.3-1.0); CALCIUM SERUM 8.6 mg/dL (8.6-10.3); CARBON DIOXIDE 23.6 mEq/L (21.0-31.0); CREATININE - SERUM 2.3 mg/dL (0.7-1.3); GFR AFRICAN-AMERICAN 36.3 ml/min (>90); POTASSIUM SERUM 4.7 mEq/L (3.5-5.1); TOTAL PROTEIN,SERUM 5.7 gm/dL (6.0-8.3)
[2017-08-16] MEDS: INSULIN ASPART, RECOMBINANT 100 UNITS/ML SUBQ SCH ×4 (06:59→22:38)
[2017-08-16 07:11] LABS: HEMATOCRIT 21.8 % (41.0-60); HEMOGLOBIN 7.1 gm/dL (12-16); WHITE BLOOD COUNT 3.8 Th/cmm (4.8-10.8)
[2017-08-16] MEDS: Insulin Detemir 100 units/mL 10mL Vial SUBQ SCH ×2 (09:30→17:09)
[2017-08-16] MEDS: Ferrous Sulfate 325 MG TAB PO SCH (09:38)
[2017-08-16] MEDS: FLUOCINONIDE 0.05% TP SCH ×2 (09:38→16:26)
[2017-08-16] MEDS: Venelex 60gm Tube TP SCH (09:38)
[2017-08-16] MEDS: Lactobacillus Rhamnosus GG 15 Billion CFU CAP.SPRINK PO SCH (09:39)
--- NOTE | 2017-08-16 12:42 | Infectious Disease Prog Note ---
Infectious Disease Subjective - Review of Systems Service Date: 08/16/17 Subjective: There is no new change, no fever. Infectious Disease Objective - Results Result Diagrams: 08/17/17 05:45 08/17/17 05:45 Recent Labs: Laboratory Last Values WBC 3.8 Th/cmm (4.8-10.8) L 08/16/17 06:13 RBC 2.78 Mil/cmm (3.80-5.80) L 08/16/17 06:13 Hgb 7.1 gm/dL (12-16) L* 08/16/17 06:13 Hct 21.8 % (41.0-60) L 08/16/17 06:13 MCV 78.6 fl (80-99) L 08/16/17 06:13 MCH 25.6 pg (27.0-31.0) L 08/16/17 06:13 MCHC Differential 32.5 pg (28.0-36.0) 08/16/17 06:13 RDW 19.3 % (11.5-20.0) 08/16/17 06:13 Plt Count 155 Th/cmm (150-400) 08/16/17 06:13 MPV 7.2 fl 08/16/17 06:13 Neutrophils % 65.3 % (40.0-80.0) 08/16/17 06:13 Lymphocytes % 23.0 % (20.0-50.0) 08/16/17 06:13 Monocytes % 7.0 % (2.0-10.0) 08/16/17 06:13 Eosinophils % 3.1 % (0.0-5.0) 08/16/17 06:13 Basophils % 1.6 % (0.0-2.0) 08/16/17 06:13 Sodium 138 mEq/L (136-145) 08/16/17 06:13 Potassium 4.7 mEq/L (3.5-5.1) 08/16/17 06:13 Chloride 109 mEq/L (98-107) H 08/16/17 06:13 Carbon Dioxide 23.6 mEq/L (21.0-31.0) 08/16/17 06:13 Anion Gap 10.1 (7.0-16.0) 08/16/17 06:13 BUN 59 mg/dL (7-25) H 08/16/17 06:13 Creatinine 2.3 mg/dL (0.7-1.3) H 08/16/17 06:13 Est GFR ( Amer) 36.3 ml/min (>90) 08/16/17 06:13 Est GFR (Non-Af Amer) 30.0 ml/min 08/16/17 06:13 BUN/Creatinine Ratio 25.7 08/16/17 06:13 Glucose 110 mg/dL (70-105) H 08/16/17 06:13 POC Glucose 192 MG/DL (70 - 105) H 08/16/17 12:30 Calcium 8.6 mg/dL (8.6-10.3) 08/16/17 06:13 Total Bilirubin 0.3 mg/dL (0.3-1.0) 08/16/17 06:13 AST 15 U/L (13-39) 08/16/17 06:13 ALT 11 U/L (7-52) 08/16/17 06:13 Alkaline Phosphatase 47 U/L (34-104) 08/16/17 06:13 Total Protein 5.7 gm/dL (6.0-8.3) L 08/16/17 06:13 Albumin 2.8 gm/dL (4.2-5.5) L 08/16/17 06:13 Globulin 2.9 gm/dL 08/16/17 06:13 Albumin/Globulin Ratio 1.0 (1.0-1.8) 08/16/17 06:13 Random Vancomycin 16.2 ug/mL (5.0-40.0) 08/16/17 06:13 - Physical Exam Vitals and I&O: Vital Signs Temp 97.2 F 08/16/17 11:45 Pulse 75 08/16/17 11:45 Resp 19 08/16/17 11:45 BP 99/46 08/16/17 11:45 Pulse Ox 98 08/16/17 11:45 Intake & Output 08/15/17 08/16/17 08/16/17 18:59 06:59 18:59 Intake Total 1300 50 Balance 1300 50 Weight (lbs) 74.979 kg Intake: Intake, IV Amount 100 50 Piperacillin Sodium/ 100 50 Tazobact 3.375 gm In Sodium Chloride 0.9% 50 ml @ 100 mls/hr IV Q6HR [facility] Rx#:[id number] Oral 1200 Other: # Voids 3 # Bowel Movements 0 Weight Source Bedscale Active Medications: Current Medications Acetaminophen (Tylenol) 650 mg PO Q4H PRN PRN Reason: Pain or Fever >101 Stop: 10/12/17 02:08 Last Admin: 08/14/17 22:45 Dose: 650 mg Acetaminophen/Hydrocodone Bitart ([place] 5mg/325mg) 1 tab PO Q4H PRN PRN Reason: mild pain Stop: 10/12/17 02:10 Last Admin: 08/15/17 22:11 Dose: 1 tab Al Hydrox/Mg Hydrox/Simethicone (Maalox) 30 ml PO Q6HR PRN PRN Reason: GI DISTRESS Stop: 10/12/17 02:10 Albuterol/Ipratropium (Duoneb Neb) 3 ml HHN Q6HRT MATHEW Stop: 10/12/17 06:59 Last Admin: 08/16/17 07:17 Dose: 3 ml Albuterol/Ipratropium (Duoneb Neb) 3 ml HHN [id number] [facility] Stop: 10/12/17 06:59 Amiodarone HCl (Cordarone) 200 mg PO DAILY MATHEW Stop: 10/12/17 08:59 Last Admin: 08/16/17 09:38 Dose: 200 mg Atorvastatin Calcium (Lipitor) 20 mg PO HS [facility] PRN Reason: Protocol Stop: 10/12/17 20:59 Last Admin: 08/15/17 22:09 Dose: 20 mg Carvedilol (Coreg) 3.125 mg PO Q12HR MATHEW Stop: 10/12/17 08:59 Last Admin: 08/16/17 09:42 Dose: Not Given [place] Oil/[place] Balsam/Trypsin (Venelex) 1 appl TP DAILY MATHEW Stop: 10/12/17 08:59 Last Admin: 08/16/17 09:38 Dose: 1 appl Digoxin (Lanoxin) 0.[address] [facility] Stop: 10/12/17 20:59 Last Admin: 08/15/17 22:08 Dose: 0.125 mg Donepezil HCl (Aricept) [address] [facility] Stop: 10/12/17 20:59 Last Admin: 08/15/17 22:08 Dose: 5 mg Dutasteride (Avodart) 0.5 mg PO DAILY [facility]W PRN Reason: Protocol Stop: 10/12/17 08:59 Last Admin: 08/16/17 09:38 Dose: 0.5 mg Epoetin Errol (Epogen) 10,000 units SUBQ MoWeFr [facility] Stop: 10/14/17 14:59 Last Admin: 08/15/17 15:54 Dose: 10,000 units Ferrous Sulfate (Iron) 325 mg PO DAILY [facility] Stop: 10/12/17 08:59 Last Admin: 08/16/17 09:38 Dose: 325 mg Fluocinonide (Fluocinonide 60 Ml) 2 appl TP BID [facility] Stop: 10/12/17 08:59 Last Admin: 08/16/17 09:38 Dose: 2 appl Ferric Sodium Gluconate Complex 125 mg/ Sodium Chloride 110 mls @ 100 mls/hr IV Q24HR [facility]HEW Stop: 08/23/17 12:59 Last Admin: 08/15/17 12:49 Dose: 100 mls/hr Piperacillin Sod/Tazobactam (Sod 3.375 gm/ Sodium Chloride) 50 mls @ 100 mls/ hr IV Q6HR [facility]HEW Stop: 10/14/17 11:59 Last Admin: 08/16/17 05:34 Dose: 100 mls/hr Insulin Aspart (Novolog) 0 units SUBQ ACHS MATHEW PRN Reason: Protocol Stop: 10/12/17 07:29 Last Admin: 08/16/17 06:59 Dose: Not Given Insulin Detemir (Levemir Insulin) 15 units SUBQ BID [facility]W PRN Reason: Protocol Stop: 10/12/17 08:59 Last Admin: 08/16/17 09:30 Dose: 15 unit Lactobacillus Rhamnosus (Culturelle 15b) 1 each PO DAILY [facility] Stop: 10/12/17 08:59 Last Admin: 08/16/17 09:39 Dose: 1 each Levothyroxine Sodium (Synthroid) 0.025 mg PO QDAC MATHEW Stop: 10/12/17 07:29 Last Admin: 08/16/17 06:56 Dose: 0.025 mg Lisinopril (Zestril) 2.5 mg PO DAILY [facility] Stop: 10/12/17 08:59 Last Admin: 08/16/17 09:42 Dose: Not Given Magnesium Hydroxide (Milk Of Magnesia) 30 ml PO HS PRN PRN Reason: Constipation Stop: 10/12/17 02:10 Miscellaneous (Vancomycin Iv Per Pharmacy) 1 ea [facility] PRN PRN PRN Reason: PROTOCOL Stop: 10/12/17 01:59 Nabumetone (Relafen) 750 mg PO BID [facility]W Stop: 10/12/17 08:59 Last Admin: 08/16/17 09:37 Dose: 750 mg Nitroglycerin (Nitrostat) 0.4 mg SL Q5MIN PRN PRN Reason: Chest Pain Stop: 10/12/17 02:10 Quetiapine Fumarate (Seroquel) 25 mg PO BID [facility]W PRN Reason: Protocol Stop: 10/14/17 08:59 Last Admin: 08/16/17 09:39 Dose: 25 mg Rivaroxaban (Xarelto) 15 mg PO DAILY [facility] Stop: 10/12/17 08:59 Last Admin: 08/16/17 09:38 Dose: 15 mg Spironolactone (Aldactone) 25 mg PO DAILY [facility] Stop: 10/12/17 08:59 Last Admin: 08/16/17 09:43 Dose: Not Given Tamsulosin HCl (Flomax) 0.4 mg PO DAILY [facility] Stop: 10/12/17 08:59 Last Admin: 08/16/17 09:39 Dose: 0.4 mg Valsartan (Diovan) 20 mg PO DAILY [facility] Stop: 10/12/17 08:59 Last Admin: 08/16/17 09:43 Dose: Not Given General: no acute distress, well developed, well nourished HEENT: atraumatic, normocephalic, PERRLA Neck: supple, no thyromegaly, no lymphadenopathy Cardiovascular: S1S2, regular Lungs: clear to auscultation bilaterally, clear to percussion Abdomen: soft, no tender, no distended Extremities: other (b/l leg wounds with erythema extending to right foot in right lower extremity.), no cyanosis, no clubbing, no edema Infectious Disease Assmt/Plan - Assessment Assessment: 1. Cellulitis of both legs. With open nonhealing complicated wound. Cellulitis of left foot. 2. Left forearm wound. No need of antibiotic for this indication. 3. Diabetes mellitus type 2. 4. Hypertension. 5. Hyperlipidemia. - Plan Plan: Continue the same treatment. Continue vancomyocin IV and wound care. Nutritional Asmnt/Malnutr-PDOC - Dietary Evaluation Malnutrition Findings (Please click <Entered> for more info): Nutritional Asmnt/Malnutrition Start: 08/13/17 11: 40 Text: Status: Cancelled Freq: Document 08/13/17 11:41 RODO (Rec: 08/13/17 11:45 EGRBENITEZ [place] [id number]) Nutritional Asmnt/Malnutrition Patient General Information Nutritional Screening Consult Diagnosis Bilateral LE wound Pertinent Medical Hx/Surgical Hx no PMH as of 08/13 @ 1000 Subjective Information PT asleep in bed at time of visit Current Diet Order/ [facility] Pertinent Medications maalox, lipiotr, Fe, lasix, novolog, synthroid, vancomycin , KCl Pertinent Labs 08/13: Na 139, K 5.4, Cl 109, Co2 23.2, BUN 52, Cr 2.1, Ca 8 .8, glucose 148 Nutritional Hx/Data Height 1.83 m Height (Calculated Centimeters) 182.9 Current Weight (lbs) 74.843 kg Weight (Calculated Kilograms) 74.8 Weight (Calculated Grams) 69238.7 Body Mass Index (BMI) 22.4 Weight Status Approriate GI Symptoms GI Symptoms None Last BM none noted Cultural/Ethnic/Jainism Belief unknown Usual diet at home unknown Skin Integrity/Comment: stacey score 18 Estimated Nutritional Goals BEE in Kcals: Using Current wt Calories/Kcals/Kg 28-33kcals/kg Kcals Calculated 2100-2475kcals/day Protein: Using Current wt Protein g/k.2g/kg Protein Calculated 90g/day Fluid: ml per MD Nutritional Problem 1. Problem Problem No nutrition diagnosis at this time Intervention/Recommendation Comments Recommend continuing [facility] diet Expected Outcomes/Goals Expected Outcomes/Goals PO intake >75% of meals Nutritional Asmnt/Malnutrition Start: 08/15/17 15: 03 Text: Status: Complete Freq: Document 08/15/17 15:04 LCRADHAG (Rec: 08/15/17 15:12 [facility] Nutritional Asmnt/Malnutrition Patient General Information Nutritional Screening High Risk Diagnosis bilateral lower extremity wound Pertinent Medical Hx/Surgical Hx DM with nephropathy, CKD 3, HTN, BPH, hyperlipidemia, hypothy CHF Subjective Information Pt seen sitting on bed at time of visit, alert and talkative . Pt reported appptite fine. Per EMR, PO intake 100% of meals. Current Diet Order/ Nutrition Support CCHO-60gm Pertinent Medications ferric sodium gluconate, iron, novolog, levemir, culturelle, synthroid, piperacillin, seroquel Pertinent Labs 08/15 K 5.2, Cl 111, BUN 59, Cr 2.3, glucose 166, POC 172-212 08/14 K 5.3, Cl 109, BUN 58, Cr 2.2 Nutritional Hx/Data Height 1.83 m Height (Calculated Centimeters) 182.9 Current Weight (lbs) 74.843 kg Weight (Calculated Kilograms) 74.8 Weight (Calculated Grams) 79929.7 [place] Body Weight 178 Body Mass Index (BMI) 22.4 Weight Status Approriate GI Symptoms GI Symptoms None Last BM none Difficult in: None Skin Integrity/Comment: skin tear ulcer to right/leftl ower leg, skin tear to left hand Current %PO Good (75-100%) Estimated Nutritional Goals BEE in Kcals: Using Current wt Calories/Kcals/Kg 25-30 Kcals Calculated 4788-5803 Protein: Using Current wt Protein g/k.8-1 monitor renal labs Protein Calculated 60-75 Fluid: ml 1875-2250ml (1ml/kcal) Nutritional Problem 1. Problem Problem altered nutrition related labs Etiology hx of DM, CKD 3 Signs/Symptoms: K 5.2-5.3, BUN 58-59, Cr 2.2-2 .3, glucose 166, POC 172-212 Malnutrition Alert Protein-Calorie Malnutrition N/A Is there a minimum of two criteria No selected? Query Text:Check all the applicable criteria. A minimum of two criteria are recommended for diagnosis of either severe or non-severe malnutrition. Intervention/Recommendation Comments 1. Recommend adding renal diet d/t elevated K, BUN/Cr. 2. Monitor PO intake, wt, labs and skin integrity 3. F/U as high risk in 2-3 days, 08/17-08/18 Expected Outcomes/Goals Expected Outcomes/Goals 1. PO intake to meet at least 75% of nutritional needs. 2. Wt stability, skin to heal, labs to approach WNL.
[2017-08-16] MEDS: Sodium Ferric Gluconate 125 MG in Sodium Chloride 0.9% 100 ML IV SCH (14:21)
[2017-08-16] MEDS: Hydrocodone/APAP 5mg/325mg Tab PO PRN (19:06)
[2017-08-16] MEDS: Atorvastatin Calcium 10 MG TAB PO SCH (22:22)
[2017-08-17] MEDS: Albuterol/Ipratropium Neb 3 ML AERS HHN SCH ×4 (00:57→18:48)
--- NOTE | 2017-08-17 04:07 | Progress Notes ---
DATE: PATIENT IDENTIFICATION: A 72-year-old male. SUBJECTIVE: The patient was seen and examined. The patient is lying in the bed. The patient has no new complaints. OBJECTIVE: VITAL SIGNS: Temperature 99, pulse is 72, respiratory rate is 18, blood pressure is 132/64. HEENT: No facial asymmetry. NECK: Supple, no JVD. HEART: Regular. CHEST: Equal in expansion, no wheezing, no crackles. ABDOMEN: Soft. No guarding, no rigidity. Bowel sounds are present. No palpable mass. EXTREMITIES: Bilateral chronic venous stasis changes with marked erythema noted. AVAILABLE DIAGNOSTIC DATA: Has been reviewed. CLINICAL IMPRESSION: 1. Normocytic normochromic anemia with no evidence of active bleeding, currently on iron therapy with Procrit. 2. Chronic kidney disease. 3. Bilateral cellulitis with chronic venous stasis changes. 4. Diabetes. 5. Hypertension. 6. Hyperlipidemia. PLAN: 1. IV antibiotic. 2. Wound care. 3. Infectious Disease consultation. 4. IV iron. 5. Procrit. 6. Diabetes management. 7. General nursing care. 8. Follow lab. 9. Follow consult recommendation. 10. Chronic disease management. 11. Care plan reviewed and discussed with staff. JOB# [id number]
--- NOTE | 2017-08-17 04:16 | Progress Notes ---
DATE: SUBJECTIVE: Chart reviewed and the patient interviewed. Also discussed the patient's condition with the staff and reviewed records and labs. The patient is still agitated and in irritable mood. The patient also seems to be manicky. He is sitting in his bed without his gown and his upper part ____. He also is still rambling and restless. On the other hand, slightly easier to redirect him. The patient also denies any side effects of medications. He thinks that he is in the hospital for vacation. We will continue monitoring his behavior and continue to adjust psychotropic medications. JOB# [id number]
[2017-08-17 06:33] LABS: ANION GAP 12.2 (7.0-16.0); CALCIUM SERUM 8.4 mg/dL (8.6-10.3); CARBON DIOXIDE 22.6 mEq/L (21.0-31.0); CREATININE - SERUM 2.4 mg/dL (0.7-1.3); GFR AFRICAN-AMERICAN 34.6 ml/min (>90); GFR NON AFRICAN-AMERICAN 28.6 ml/min; POTASSIUM SERUM 4.8 mEq/L (3.5-5.1)
[2017-08-17 06:39] LABS: BASOPHILE ABSOLUTE 0.1 Th/cumm (0-0.2); MONOCYTE ABSOLUTE 0.3 Th/cmm (0.3-1.0)
[2017-08-17 06:52] LABS: RED BLOOD COUNT 2.69 Mil/cmm (3.80-5.80); WHITE BLOOD COUNT 4.2 Th/cmm (4.8-10.8)
[2017-08-17 06:53] LABS: % LYMPHOCYTES 18.9 % (20.0-50.0); HEMATOCRIT 21.3 % (41.0-60); MEAN CELL VOLUME 79.2 fl (80-99); MEAN CORPUSCULAR HEMOGLOBIN 25.8 pg (27.0-31.0); MEAN CORPUSCULAR HGB CONC 32.6 pg (28.0-36.0); MEAN PLATELET VOLUME 7.4 fl; PLATELET COUNT 150 Th/cmm (150-400); RED CELL DISTRIBUTION WIDTH 19.4 % (11.5-20.0)
[2017-08-17 06:54] LABS: % BASOPHILS 1.4 % (0.0-2.0); % EOSINOPHILS 2.4 % (0.0-5.0); % MONOCYTES 6.3 % (2.0-10.0); EOSINOPHILE ABSOLUTE 0.1 Th/cmm (0.1-0.4); LYMPHOCYTE ABSOLUTE 0.8 Th/cmm (1.5-3.0); NEUTROPHILE ABSOLUTE 2.9 Th/cmm (1.8-8.0)
[2017-08-17] MEDS: INSULIN ASPART, RECOMBINANT 100 UNITS/ML SUBQ SCH ×5 (08:06→21:28)
[2017-08-17] MEDS: Levothyroxine 0.025 Mg Tab PO SCH (08:14)
[2017-08-17] MEDS: Lactobacillus Rhamnosus GG 15 Billion CFU CAP.SPRINK PO SCH ×2 (09:28→09:48)
[2017-08-17] MEDS: FLUOCINONIDE 0.05% TP SCH ×2 (09:32→17:40)
[2017-08-17] MEDS: Venelex 60gm Tube TP SCH (09:37)
[2017-08-17] MEDS: Insulin Detemir 100 units/mL 10mL Vial SUBQ SCH ×2 (09:58→17:42)
[2017-08-17] MEDS: Ferrous Sulfate 325 MG TAB PO SCH (10:46)
--- NOTE | 2017-08-17 10:58 | Infectious Disease Prog Note ---
Infectious Disease Subjective - Review of Systems Service Date: 08/17/17 Subjective: There is no new change, no fever. Infectious Disease Objective - Results Result Diagrams: 08/17/17 05:45 08/17/17 05:45 Recent Labs: Laboratory Last Values WBC 4.2 Th/cmm (4.8-10.8) L 08/17/17 05:45 RBC 2.69 Mil/cmm (3.80-5.80) L 08/17/17 05:45 Hgb 7.0 gm/dL (12-16) L* 08/17/17 05:45 Hct 21.3 % (41.0-60) L 08/17/17 05:45 MCV 79.2 fl (80-99) L 08/17/17 05:45 MCH 25.8 pg (27.0-31.0) L 08/17/17 05:45 MCHC Differential 32.6 pg (28.0-36.0) 08/17/17 05:45 RDW 19.4 % (11.5-20.0) 08/17/17 05:45 Plt Count 150 Th/cmm (150-400) 08/17/17 05:45 MPV 7.4 fl 08/17/17 05:45 Neutrophils % 71.0 % (40.0-80.0) 08/17/17 05:45 Lymphocytes % 18.9 % (20.0-50.0) L 08/17/17 05:45 Monocytes % 6.3 % (2.0-10.0) 08/17/17 05:45 Eosinophils % 2.4 % (0.0-5.0) 08/17/17 05:45 Basophils % 1.4 % (0.0-2.0) 08/17/17 05:45 Sodium 136 mEq/L (136-145) 08/17/17 05:45 Potassium 4.8 mEq/L (3.5-5.1) 08/17/17 05:45 Chloride 106 mEq/L (98-107) 08/17/17 05:45 Carbon Dioxide 22.6 mEq/L (21.0-31.0) 08/17/17 05:45 Anion Gap 12.2 (7.0-16.0) 08/17/17 05:45 BUN 56 mg/dL (7-25) H 08/17/17 05:45 Creatinine 2.4 mg/dL (0.7-1.3) H 08/17/17 05:45 Est GFR ( Amer) 34.6 ml/min (>90) 08/17/17 05:45 Est GFR (Non-Af Amer) 28.6 ml/min 08/17/17 05:45 BUN/Creatinine Ratio 23.3 08/17/17 05:45 Glucose 163 mg/dL (70-105) H 08/17/17 05:45 POC Glucose 145 MG/DL (70 - 105) H 08/16/17 22:31 Calcium 8.4 mg/dL (8.6-10.3) L 08/17/17 05:45 Total Bilirubin 0.3 mg/dL (0.3-1.0) 08/16/17 06:13 AST 15 U/L (13-39) 08/16/17 06:13 ALT 11 U/L (7-52) 08/16/17 06:13 Alkaline Phosphatase 47 U/L (34-104) 08/16/17 06:13 Total Protein 5.7 gm/dL (6.0-8.3) L 08/16/17 06:13 Albumin 2.8 gm/dL (4.2-5.5) L 08/16/17 06:13 Globulin 2.9 gm/dL 08/16/17 06:13 Albumin/Globulin Ratio 1.0 (1.0-1.8) 08/16/17 06:13 Random Vancomycin 20.2 ug/mL (5.0-40.0) 08/17/17 05:45 - Physical Exam Vitals and I&O: Vital Signs Temp 98.7 F 08/17/17 03:00 Pulse 76 08/17/17 09:29 Resp 18 08/17/17 07:33 BP 101/61 08/17/17 09:29 Pulse Ox 94 08/17/17 07:33 Intake & Output 08/16/17 08/17/17 08/17/17 18:59 06:59 18:59 Intake Total 100 400 Balance 100 400 Weight (lbs) 88.314 kg Intake: Intake, IV Amount 100 50 Piperacillin Sodium/ 100 50 Tazobact 3.375 gm In Sodium Chloride 0.9% 50 ml @ 100 mls/hr IV Q6HR [facility] Rx#:[id number] Oral 350 Other: # Voids 3 Weight Source Bedscale Active Medications: Current Medications Acetaminophen (Tylenol) 650 mg PO Q4H PRN PRN Reason: Pain or Fever >101 Stop: 10/12/17 02:08 Last Admin: 08/14/17 22:45 Dose: 650 mg Acetaminophen/Hydrocodone Bitart (Arjay 5mg/325mg) 1 tab PO Q4H PRN PRN Reason: mild pain Stop: 10/12/17 02:10 Last Admin: 08/16/17 19:06 Dose: 1 tab Al Hydrox/Mg Hydrox/Simethicone (Maalox) 30 ml PO Q6HR PRN PRN Reason: GI DISTRESS Stop: 10/12/17 02:10 Albuterol/Ipratropium (Duoneb Neb) 3 ml HHN Q6HRT [facility] Stop: 10/12/17 06:59 Last Admin: 08/17/17 07:32 Dose: 3 ml Albuterol/Ipratropium (Duoneb Neb) 3 ml HHN [id number] [facility] Stop: 10/12/17 06:59 Amiodarone HCl (Cordarone) 200 mg PO DAILY [facility] Stop: 10/12/17 08:59 Last Admin: 08/17/17 09:47 Dose: Not Given Atorvastatin Calcium (Lipitor) 20 mg PO HS [facility] PRN Reason: Protocol Stop: 10/12/17 20:59 Last Admin: 08/16/17 22:22 Dose: 20 mg Carvedilol (Coreg) 3.125 mg PO Q12HR [facility] Stop: 10/12/17 08:59 Last Admin: 08/17/17 09:27 Dose: Not Given Gamaliel Oil/[place] Balsam/Trypsin (Venelex) 1 appl TP DAILY [facility] Stop: 10/12/17 08:59 Last Admin: 08/17/17 09:37 Dose: 1 appl Digoxin (Lanoxin) 0.125 mg PO HS [facility] Stop: 10/12/17 20:59 Last Admin: 08/16/17 22:35 Dose: Not Given Donepezil HCl (Aricept) 5 mg PO HS [facility] Stop: 10/12/17 20:59 Last Admin: 08/16/17 22:23 Dose: 5 mg Dutasteride (Avodart) 0.5 mg PO DAILY [facility] PRN Reason: Protocol Stop: 10/12/17 08:59 Last Admin: 08/17/17 09:26 Dose: 0.5 mg Epoetin Errol (Epogen) 10,000 units SUBQ MoWeFr [facility] Stop: 10/14/17 14:59 Last Admin: 08/15/17 15:54 Dose: 10,000 units Ferrous Sulfate (Iron) 325 mg PO DAILY [facility] Stop: 10/12/17 08:59 Last Admin: 08/17/17 10:46 Dose: Not Given Fluocinonide (Fluocinonide 60 Ml) 2 appl TP BID [facility] Stop: 10/12/17 08:59 Last Admin: 08/17/17 09:32 Dose: 2 appl Ferric Sodium Gluconate Complex 125 mg/ Sodium Chloride 110 mls @ 100 mls/hr IV Q24HR [facility] Stop: 08/23/17 12:59 Last Admin: 08/16/17 14:21 Dose: 100 mls/hr Piperacillin Sod/Tazobactam (Sod 3.375 gm/ Sodium Chloride) 50 mls @ 100 mls/ hr IV Q6HR [facility] Stop: 10/14/17 11:59 Last Admin: 08/17/17 06:29 Dose: 100 mls/hr Vancomycin HCl 1.25 gm/ Sodium (Chloride) 250 mls @ 165 mls/hr IV ONCE ONE Stop: 08/18/17 11:30 Insulin Aspart (Novolog) 0 units SUBQ ACHS [facility] PRN Reason: Protocol Stop: 10/12/17 07:29 Last Admin: 08/17/17 08:10 Dose: Not Given Insulin Detemir (Levemir Insulin) 15 units SUBQ BID [facility] PRN Reason: Protocol Stop: 10/12/17 08:59 Last Admin: 08/17/17 09:58 Dose: Not Given Lactobacillus Rhamnosus (Culturelle 15b) 1 each PO DAILY [facility] Stop: 10/12/17 08:59 Last Admin: 08/17/17 09:48 Dose: Not Given Levothyroxine Sodium (Synthroid) 0.025 mg PO QDAC [facility] Stop: 10/12/17 07:29 Last Admin: 08/17/17 08:14 Dose: 0.025 mg Lisinopril (Zestril) 2.5 mg PO DAILY [facility] Stop: 10/12/17 08:59 Last Admin: 08/17/17 09:26 Dose: Not Given Magnesium Hydroxide (Milk Of Magnesia) 30 ml PO HS PRN PRN Reason: Constipation Stop: 10/12/17 02:10 Miscellaneous (Vancomycin Iv Per Pharmacy) 1 ea [facility] PRN PRN PRN Reason: PROTOCOL Stop: 10/12/17 01:59 Nabumetone (Relafen) 750 mg PO BID [facility] Stop: 10/12/17 08:59 Last Admin: 08/17/17 09:45 Dose: Not Given Nitroglycerin (Nitrostat) 0.4 mg SL Q5MIN PRN PRN Reason: Chest Pain Stop: 10/12/17 02:10 Quetiapine Fumarate (Seroquel) 25 mg PO BID [facility] PRN Reason: Protocol Stop: 10/14/17 08:59 Last Admin: 08/17/17 09:48 Dose: Not Given Rivaroxaban (Xarelto) 15 mg PO DAILY [facility] Stop: 10/12/17 08:59 Last Admin: 08/17/17 09:47 Dose: Not Given Spironolactone (Aldactone) 25 mg PO DAILY [facility] Stop: 10/12/17 08:59 Last Admin: 08/17/17 09:28 Dose: Not Given Tamsulosin HCl (Flomax) 0.4 mg PO DAILY [facility] Stop: 10/12/17 08:59 Last Admin: 08/17/17 09:27 Dose: 0.4 mg Valsartan (Diovan) 20 mg PO DAILY [facility] Stop: 10/12/17 08:59 Last Admin: 08/17/17 09:29 Dose: Not Given General: no acute distress, well developed, well nourished, cachectic HEENT: atraumatic, normocephalic, PERRLA Neck: supple, no thyromegaly Cardiovascular: S1S2, regular Lungs: clear to auscultation bilaterally, clear to percussion Abdomen: soft, no tender, no distended, no hepatomegaly Extremities: no cyanosis, no clubbing, no edema Neurological: awake, alert, oriented Skin: intact Infectious Disease Assmt/Plan - Assessment Assessment: 1. Cellulitis of both legs. With open nonhealing complicated wound. Cellulitis of left foot. 2. Left forearm wound. No need of antibiotic for this indication. 3. Diabetes mellitus type 2. 4. Hypertension. 5. Hyperlipidemia. - Plan Plan: Continue the same treatment. Continue vancomyocin IV and wound care. Nutritional Asmnt/Malnutr-PDOC - Dietary Evaluation Malnutrition Findings (Please click <Entered> for more info): Nutritional Asmnt/Malnutrition Start: 08/13/17 11: 40 Text: Status: Cancelled Freq: Document 08/13/17 11:41 RODO (Rec: 08/13/17 11:45 [place] [id number]) Nutritional Asmnt/Malnutrition Patient General Information Nutritional Screening Consult Diagnosis Bilateral LE wound Pertinent Medical Hx/Surgical Hx no PMH as of 08/13 @ 1000 Subjective Information PT asleep in bed at time of visit Current Diet Order/ Nutrition Support [facility] [place] Pertinent Medications maalox, lipiotr, Fe, lasix, novolog, synthroid, vancomycin , KCl Pertinent Labs 08/13: Na 139, K 5.4, Cl 109, Co2 23.2, BUN 52, Cr 2.1, Ca 8 .8, glucose 148 Nutritional Hx/Data Height 1.83 m Height (Calculated Centimeters) 182.9 Current Weight (lbs) 74.843 kg Weight (Calculated Kilograms) 74.8 Weight (Calculated Grams) 48497.7 Body Mass Index (BMI) 22.4 Weight Status Approriate GI Symptoms GI Symptoms None Last BM none noted Cultural/Ethnic/Faith Belief unknown Usual diet at home unknown Skin Integrity/Comment: stacey score 18 Estimated Nutritional Goals BEE in Kcals: Using Current wt Calories/Kcals/Kg 28-33kcals/kg Kcals Calculated 2100-2475kcals/day Protein: Using Current wt Protein g/k.2g/kg Protein Calculated 90g/day Fluid: ml per MD Nutritional Problem 1. Problem Problem No nutrition diagnosis at this time Intervention/Recommendation Comments Recommend continuing [facility] [place] diet Expected Outcomes/Goals Expected Outcomes/Goals PO intake >75% of meals Nutritional Asmnt/Malnutrition Start: 08/15/17 15: 03 Text: Status: Complete Freq: Document 08/15/17 15:04 LCHENG (Rec: 08/15/17 15:12 LCHENG [email or web address]) Nutritional Asmnt/Malnutrition Patient General Information Nutritional Screening High Risk Diagnosis bilateral lower extremity wound Pertinent Medical Hx/Surgical Hx DM with nephropathy, CKD 3, HTN, BPH, hyperlipidemia, hypothy CHF Subjective Information Pt seen sitting on bed at time of visit, alert and talkative . Pt reported appptite fine. Per EMR, PO intake 100% of meals. Current Diet Order/ Nutrition Support [facility]-60gm Pertinent Medications ferric sodium gluconate, iron, novolog, levemir, culturelle, synthroid, piperacillin, seroquel Pertinent Labs 08/15 K 5.2, Cl 111, BUN 59, Cr 2.3, glucose 166, POC 172-212 08/14 K 5.3, Cl 109, BUN 58, Cr 2.2 Nutritional Hx/Data Height 1.83 m Height (Calculated Centimeters) 182.9 Current Weight (lbs) 74.843 kg Weight (Calculated Kilograms) 74.8 Weight (Calculated Grams) 38173.7 [place] Body Weight 178 Body Mass Index (BMI) 22.4 Weight Status Approriate GI Symptoms GI Symptoms None Last BM none Difficult in: None Skin Integrity/Comment: skin tear ulcer to right/leftl ower leg, skin tear to left hand Current %PO Good (75-100%) Estimated Nutritional Goals BEE in Kcals: Using Current wt Calories/Kcals/Kg 25-30 Kcals Calculated 1008-4838 Protein: Using Current wt Protein g/k.8-1 monitor renal labs Protein Calculated 60-75 Fluid: ml 1875-2250ml (1ml/kcal) Nutritional Problem 1. Problem Problem altered nutrition related labs Etiology hx of DM, CKD 3 Signs/Symptoms: K 5.2-5.3, BUN 58-59, Cr 2.2-2 .3, glucose 166, POC 172-212 Malnutrition Alert Protein-Calorie Malnutrition N/A Is there a minimum of two criteria No selected? Query Text:Check all the applicable criteria. A minimum of two criteria are recommended for diagnosis of either severe or non-severe malnutrition. Intervention/Recommendation Comments 1. Recommend adding renal diet d/t elevated K, BUN/Cr. 2. Monitor PO intake, wt, labs and skin integrity 3. F/U as high risk in 2-3 days, 08/17-08/18 Expected Outcomes/Goals Expected Outcomes/Goals 1. PO intake to meet at least 75% of nutritional needs. 2. Wt stability, skin to heal, labs to approach WNL.
--- NOTE | 2017-08-17 10:59 | Infectious Disease Prog Note ---
Infectious Disease Subjective - Review of Systems Service Date: 08/17/17 Subjective: There is no new change, no fever. Infectious Disease Objective - Results Result Diagrams: 08/17/17 05:45 08/17/17 05:45 Recent Labs: Laboratory Last Values WBC 4.2 Th/cmm (4.8-10.8) L 08/17/17 05:45 RBC 2.69 Mil/cmm (3.80-5.80) L 08/17/17 05:45 Hgb 7.0 gm/dL (12-16) L* 08/17/17 05:45 Hct 21.3 % (41.0-60) L 08/17/17 05:45 MCV 79.2 fl (80-99) L 08/17/17 05:45 MCH 25.8 pg (27.0-31.0) L 08/17/17 05:45 MCHC Differential 32.6 pg (28.0-36.0) 08/17/17 05:45 RDW 19.4 % (11.5-20.0) 08/17/17 05:45 Plt Count 150 Th/cmm (150-400) 08/17/17 05:45 MPV 7.4 fl 08/17/17 05:45 Neutrophils % 71.0 % (40.0-80.0) 08/17/17 05:45 Lymphocytes % 18.9 % (20.0-50.0) L 08/17/17 05:45 Monocytes % 6.3 % (2.0-10.0) 08/17/17 05:45 Eosinophils % 2.4 % (0.0-5.0) 08/17/17 05:45 Basophils % 1.4 % (0.0-2.0) 08/17/17 05:45 Sodium 136 mEq/L (136-145) 08/17/17 05:45 Potassium 4.8 mEq/L (3.5-5.1) 08/17/17 05:45 Chloride 106 mEq/L (98-107) 08/17/17 05:45 Carbon Dioxide 22.6 mEq/L (21.0-31.0) 08/17/17 05:45 Anion Gap 12.2 (7.0-16.0) 08/17/17 05:45 BUN 56 mg/dL (7-25) H 08/17/17 05:45 Creatinine 2.4 mg/dL (0.7-1.3) H 08/17/17 05:45 Est GFR ( Amer) 34.6 ml/min (>90) 08/17/17 05:45 Est GFR (Non-Af Amer) 28.6 ml/min 08/17/17 05:45 BUN/Creatinine Ratio 23.3 08/17/17 05:45 Glucose 163 mg/dL (70-105) H 08/17/17 05:45 POC Glucose 145 MG/DL (70 - 105) H 08/16/17 22:31 Calcium 8.4 mg/dL (8.6-10.3) L 08/17/17 05:45 Total Bilirubin 0.3 mg/dL (0.3-1.0) 08/16/17 06:13 AST 15 U/L (13-39) 08/16/17 06:13 ALT 11 U/L (7-52) 08/16/17 06:13 Alkaline Phosphatase 47 U/L (34-104) 08/16/17 06:13 Total Protein 5.7 gm/dL (6.0-8.3) L 08/16/17 06:13 Albumin 2.8 gm/dL (4.2-5.5) L 08/16/17 06:13 Globulin 2.9 gm/dL 08/16/17 06:13 Albumin/Globulin Ratio 1.0 (1.0-1.8) 08/16/17 06:13 Random Vancomycin 20.2 ug/mL (5.0-40.0) 08/17/17 05:45 - Physical Exam Vitals and I&O: Vital Signs Temp 98.7 F 08/17/17 03:00 Pulse 76 08/17/17 09:29 Resp 18 08/17/17 07:33 BP 101/61 08/17/17 09:29 Pulse Ox 94 08/17/17 07:33 Intake & Output 08/16/17 08/17/17 08/17/17 18:59 06:59 18:59 Intake Total 100 400 Balance 100 400 Weight (lbs) 88.314 kg Intake: Intake, IV Amount 100 50 Piperacillin Sodium/ 100 50 Tazobact 3.375 gm In Sodium Chloride 0.9% 50 ml @ 100 mls/hr IV Q6HR [facility] Rx#:[id number] Oral 350 Other: # Voids 3 Weight Source Bedscale Active Medications: Current Medications Acetaminophen (Tylenol) 650 mg PO Q4H PRN PRN Reason: Pain or Fever >101 Stop: 10/12/17 02:08 Last Admin: 08/14/17 22:45 Dose: 650 mg Acetaminophen/Hydrocodone Bitart (Stendal 5mg/325mg) 1 tab PO Q4H PRN PRN Reason: mild pain Stop: 10/12/17 02:10 Last Admin: 08/16/17 19:06 Dose: 1 tab Al Hydrox/Mg Hydrox/Simethicone (Maalox) 30 ml PO Q6HR PRN PRN Reason: GI DISTRESS Stop: 10/12/17 02:10 Albuterol/Ipratropium (Duoneb Neb) 3 ml HHN Q6HRT [facility] Stop: 10/12/17 06:59 Last Admin: 08/17/17 07:32 Dose: 3 ml Albuterol/Ipratropium (Duoneb Neb) 3 ml HHN [id number] [facility] Stop: 10/12/17 06:59 Amiodarone HCl (Cordarone) 200 mg PO DAILY [facility] Stop: 10/12/17 08:59 Last Admin: 08/17/17 09:47 Dose: Not Given Atorvastatin Calcium (Lipitor) 20 mg PO HS [facility] PRN Reason: Protocol Stop: 10/12/17 20:59 Last Admin: 08/16/17 22:22 Dose: 20 mg Carvedilol (Coreg) 3.125 mg PO Q12HR [facility] Stop: 10/12/17 08:59 Last Admin: 08/17/17 09:27 Dose: Not Given [place] Oil/[place] Balsam/Trypsin (Venelex) 1 appl TP DAILY [facility] Stop: 10/12/17 08:59 Last Admin: 08/17/17 09:37 Dose: 1 appl Digoxin (Lanoxin) 0.125 mg PO HS [facility] Stop: 10/12/17 20:59 Last Admin: 08/16/17 22:35 Dose: Not Given Donepezil HCl (Aricept) 5 mg PO HS [facility] Stop: 10/12/17 20:59 Last Admin: 08/16/17 22:23 Dose: 5 mg Dutasteride (Avodart) 0.5 mg PO DAILY [facility] PRN Reason: Protocol Stop: 10/12/17 08:59 Last Admin: 08/17/17 09:26 Dose: 0.5 mg Epoetin Errol (Epogen) 10,000 units SUBQ MoWeFr [facility] Stop: 10/14/17 14:59 Last Admin: 08/15/17 15:54 Dose: 10,000 units Ferrous Sulfate (Iron) 325 mg PO DAILY [facility] Stop: 10/12/17 08:59 Last Admin: 08/17/17 10:46 Dose: Not Given Fluocinonide (Fluocinonide 60 Ml) 2 appl TP BID [facility] Stop: 10/12/17 08:59 Last Admin: 08/17/17 09:32 Dose: 2 appl Ferric Sodium Gluconate Complex 125 mg/ Sodium Chloride 110 mls @ 100 mls/hr IV Q24HR [facility] Stop: 08/23/17 12:59 Last Admin: 08/16/17 14:21 Dose: 100 mls/hr Piperacillin Sod/Tazobactam (Sod 3.375 gm/ Sodium Chloride) 50 mls @ 100 mls/ hr IV Q6HR [facility] Stop: 10/14/17 11:59 Last Admin: 08/17/17 06:29 Dose: 100 mls/hr Vancomycin HCl 1.25 gm/ Sodium (Chloride) 250 mls @ 165 mls/hr IV ONCE ONE Stop: 08/18/17 11:30 Insulin Aspart (Novolog) 0 units SUBQ ACHS [facility] PRN Reason: Protocol Stop: 10/12/17 07:29 Last Admin: 08/17/17 08:10 Dose: Not Given Insulin Detemir (Levemir Insulin) 15 units SUBQ BID [facility] PRN Reason: Protocol Stop: 10/12/17 08:59 Last Admin: 08/17/17 09:58 Dose: Not Given Lactobacillus Rhamnosus (Culturelle 15b) 1 each PO DAILY [facility] Stop: 10/12/17 08:59 Last Admin: 08/17/17 09:48 Dose: Not Given Levothyroxine Sodium (Synthroid) 0.025 mg PO QDAC [facility] Stop: 10/12/17 07:29 Last Admin: 08/17/17 08:14 Dose: 0.025 mg Lisinopril (Zestril) 2.5 mg PO DAILY [facility] Stop: 10/12/17 08:59 Last Admin: 08/17/17 09:26 Dose: Not Given Magnesium Hydroxide (Milk Of Magnesia) 30 ml PO HS PRN PRN Reason: Constipation Stop: 10/12/17 02:10 Miscellaneous (Vancomycin Iv Per Pharmacy) 1 ea [facility] PRN PRN PRN Reason: PROTOCOL Stop: 10/12/17 01:59 Nabumetone (Relafen) 750 mg PO BID [facility] Stop: 10/12/17 08:59 Last Admin: 08/17/17 09:45 Dose: Not Given Nitroglycerin (Nitrostat) 0.4 mg SL Q5MIN PRN PRN Reason: Chest Pain Stop: 10/12/17 02:10 Quetiapine Fumarate (Seroquel) 25 mg PO BID [facility] PRN Reason: Protocol Stop: 10/14/17 08:59 Last Admin: 08/17/17 09:48 Dose: Not Given Rivaroxaban (Xarelto) 15 mg PO DAILY [facility] Stop: 10/12/17 08:59 Last Admin: 08/17/17 09:47 Dose: Not Given Spironolactone (Aldactone) 25 mg PO DAILY [facility] Stop: 10/12/17 08:59 Last Admin: 08/17/17 09:28 Dose: Not Given Tamsulosin HCl (Flomax) 0.4 mg PO DAILY [facility] Stop: 10/12/17 08:59 Last Admin: 08/17/17 09:27 Dose: 0.4 mg Valsartan (Diovan) 20 mg PO DAILY [facility] Stop: 10/12/17 08:59 Last Admin: 08/17/17 09:29 Dose: Not Given General: no acute distress, well developed, well nourished HEENT: atraumatic, normocephalic Neck: supple, thyromegaly Cardiovascular: S1S2, regular Lungs: clear to auscultation bilaterally, clear to percussion Abdomen: soft, no tender, no distended Extremities: other (b/l leg wounds. The erythema extending to right foot has improved.), no cyanosis, no clubbing, no edema Infectious Disease Assmt/Plan - Assessment Assessment: 1. Cellulitis of both legs. With open nonhealing complicated wound. Cellulitis of left foot. 2. Left forearm wound. No need of antibiotic for this indication. 3. Diabetes mellitus type 2. 4. Hypertension. 5. Hyperlipidemia. - Plan Plan: Continue the same treatment. Continue vancomyocin IV and wound care. Nutritional Asmnt/Malnutr-PDOC - Dietary Evaluation Malnutrition Findings (Please click <Entered> for more info): Nutritional Asmnt/Malnutrition Start: 08/13/17 11: 40 Text: Status: Cancelled Freq: Document 08/13/17 11:41 RODO (Rec: 08/13/17 11:45 [place] [id number]) Nutritional Asmnt/Malnutrition Patient General Information Nutritional Screening Consult Diagnosis Bilateral LE wound Pertinent Medical Hx/Surgical Hx no PMH as of 08/13 @ 1000 Subjective Information PT asleep in bed at time of visit Current Diet Order/ Nutrition Support [facility] Pertinent Medications maalox, lipiotr, Fe, lasix, novolog, synthroid, vancomycin , KCl Pertinent Labs 08/13: Na 139, K 5.4, Cl 109, Co2 23.2, BUN 52, Cr 2.1, Ca 8 .8, glucose 148 Nutritional Hx/Data Height 1.83 m Height (Calculated Centimeters) 182.9 Current Weight (lbs) 74.843 kg Weight (Calculated Kilograms) 74.8 Weight (Calculated Grams) 75779.7 Body Mass Index (BMI) 22.4 Weight Status Approriate GI Symptoms GI Symptoms None Last BM none noted Cultural/Ethnic/Congregational Belief unknown Usual diet at home unknown Skin Integrity/Comment: stacey score 18 Estimated Nutritional Goals BEE in Kcals: Using Current wt Calories/Kcals/Kg 28-33kcals/kg Kcals Calculated 2100-2475kcals/day Protein: Using Current wt Protein g/k.2g/kg Protein Calculated 90g/day Fluid: ml per MD Nutritional Problem 1. Problem Problem No nutrition diagnosis at this time Intervention/Recommendation Comments Recommend continuing [facility] diet Expected Outcomes/Goals Expected Outcomes/Goals PO intake >75% of meals Nutritional Asmnt/Malnutrition Start: 08/15/17 15: 03 Text: Status: Complete Freq: Document 08/15/17 15:04 LCHENG (Rec: 08/15/17 15:12 [email or web address] Nutritional Asmnt/Malnutrition Patient General Information Nutritional Screening High Risk Diagnosis bilateral lower extremity wound Pertinent Medical Hx/Surgical Hx DM with nephropathy, CKD 3, HTN, BPH, hyperlipidemia, hypothy CHF Subjective Information Pt seen sitting on bed at time of visit, alert and talkative . Pt reported appptite fine. Per EMR, PO intake 100% of meals. Current Diet Order/ [facility] Pertinent Medications ferric sodium gluconate, iron, novolog, levemir, culturelle, synthroid, piperacillin, seroquel Pertinent Labs 08/15 K 5.2, Cl 111, BUN 59, Cr 2.3, glucose 166, POC 172-212 5/6 K 5.3, Cl 109, BUN 58, Cr 2.2 Nutritional Hx/Data Height 1.83 m Height (Calculated Centimeters) 182.9 Current Weight (lbs) 74.843 kg Weight (Calculated Kilograms) 74.8 Weight (Calculated Grams) 20246.7 [place] Body Weight 178 Body Mass Index (BMI) 22.4 Weight Status Approriate GI Symptoms GI Symptoms None Last BM none Difficult in: None Skin Integrity/Comment: skin tear ulcer to right/leftl ower leg, skin tear to left hand Current %PO Good (75-100%) Estimated Nutritional Goals BEE in Kcals: Using Current wt Calories/Kcals/Kg 25-30 Kcals Calculated 2229-9668 Protein: Using Current wt Protein g/k.8-1 monitor renal labs Protein Calculated 60-75 Fluid: ml 1875-2250ml (1ml/kcal) Nutritional Problem 1. Problem Problem altered nutrition related labs Etiology hx of DM, CKD 3 Signs/Symptoms: K 5.2-5.3, BUN 58-59, Cr 2.2-2 .3, glucose 166, POC 172-212 Malnutrition Alert Protein-Calorie Malnutrition N/A Is there a minimum of two criteria No selected? Query Text:Check all the applicable criteria. A minimum of two criteria are recommended for diagnosis of either severe or non-severe malnutrition. Intervention/Recommendation Comments 1. Recommend adding renal diet d/t elevated K, BUN/Cr. 2. Monitor PO intake, wt, labs and skin integrity 3. F/U as high risk in 2-3 days, 08/17-08/18 Expected Outcomes/Goals Expected Outcomes/Goals 1. PO intake to meet at least 75% of nutritional needs. 2. Wt stability, skin to heal, labs to approach WNL.
[2017-08-17] MEDS: Sodium Ferric Gluconate 125 MG in Sodium Chloride 0.9% 100 ML IV SCH (13:21)
[2017-08-17] MEDS: Epoetin Alfa 20000 Units/mL Vial SUBQ SCH ×2 (15:59→17:36)
[2017-08-17] MEDS: Hydrocodone/APAP 5mg/325mg Tab PO PRN (21:20)
[2017-08-17] MEDS: Atorvastatin Calcium 10 MG TAB PO SCH (21:23)
[2017-08-18] MEDS: Albuterol/Ipratropium Neb 3 ML AERS HHN SCH ×4 (01:06→19:31)
[2017-08-18 06:30] LABS: % BASOPHILS 1.6 % (0.0-2.0); % EOSINOPHILS 3.2 % (0.0-5.0); % LYMPHOCYTES 24.8 % (20.0-50.0); % MONOCYTES 6.4 % (2.0-10.0); BASOPHILE ABSOLUTE 0.1 Th/cumm (0-0.2); EOSINOPHILE ABSOLUTE 0.1 Th/cmm (0.1-0.4); LYMPHOCYTE ABSOLUTE 1.1 Th/cmm (1.5-3.0); MEAN CELL VOLUME 79.3 fl (80-99); MEAN CORPUSCULAR HEMOGLOBIN 25.8 pg (27.0-31.0); MEAN CORPUSCULAR HGB CONC 32.6 pg (28.0-36.0); MEAN PLATELET VOLUME 7.4 fl; MONOCYTE ABSOLUTE 0.3 Th/cmm (0.3-1.0); PLATELET COUNT 172 Th/cmm (150-400); RED BLOOD COUNT 2.86 Mil/cmm (3.80-5.80); RED CELL DISTRIBUTION WIDTH 19.7 % (11.5-20.0); WHITE BLOOD COUNT 4.6 Th/cmm (4.8-10.8)
[2017-08-18 06:46] LABS: ALBUMIN 3.2 gm/dL (4.2-5.5); ANION GAP 12.2 (7.0-16.0); BILIRUBIN,TOTAL 0.4 mg/dL (0.3-1.0); CALCIUM SERUM 8.4 mg/dL (8.6-10.3); CARBON DIOXIDE 22.1 mEq/L (21.0-31.0); CREATININE - SERUM 2.4 mg/dL (0.7-1.3); GFR AFRICAN-AMERICAN 34.6 ml/min (>90); GFR NON AFRICAN-AMERICAN 28.6 ml/min; POTASSIUM SERUM 4.3 mEq/L (3.5-5.1); TOTAL PROTEIN,SERUM 6.5 gm/dL (6.0-8.3)
[2017-08-18 06:50] LABS: HEMATOCRIT 22.6 % (41.0-60); HEMOGLOBIN 7.4 gm/dL (12-16)
[2017-08-18] MEDS: INSULIN ASPART, RECOMBINANT 100 UNITS/ML SUBQ SCH ×4 (06:53→22:36)
--- NOTE | 2017-08-18 09:06 | Progress Notes ---
DATE: 08/17/2017 THE PATIENT'S ID: A 72-year-old male. SUBJECTIVE: The patient seen and examined. The patient continues to refuse multiple medications as well as blood transfusion. The patient's hemoglobin has dropped down from 7.9 on 08/13/2017 to 7.0 today. The patient has significant cardiovascular history as well. The patient is under the care of psychiatrist as well. OBJECTIVE: VITAL SIGNS: On today's exam, temperature 98, pulse is 76, respiratory rate is 18, blood pressure 101/60. HEENT: Absent upper and lower dentition noted. NECK: Supple, no JVD. HEART: Regular. CHEST AND LUNGS: Equal in expansion, no expiratory wheezing. ABDOMEN: Soft. No guarding. Bowel sounds present. EXTREMITIES: Bilateral chronic venous stasis changes with open wound noted. No calf tenderness noted. CLINICAL IMPRESSION: 1. Normocytic normochromic anemia with hemoglobin of 7. The patient did refuse blood transfusion. 2. Diabetes. 3. Hypertension. 4. Hyperlipidemia. 5. 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 6. Bilateral lower extremity cellulitis with open wound. 7. Degenerative joint disease. 8. Psychotic disorder. PLAN: In the view of his cardiac history and refusal of multiple medications, I will transfer this patient to telemetry unit. Continue to provide wound care and IV antibiotic for now. The patient is to have psychiatrist to follow and adjust his psychiatric medication. Continue to monitor blood sugar, blood pressure along with the chronic disease management. Care plan reviewed and discussed with staff. JOB# [id number]
[2017-08-18] MEDS: Levothyroxine 0.025 Mg Tab PO SCH (09:08)
[2017-08-18] MEDS: Insulin Detemir 100 units/mL 10mL Vial SUBQ SCH ×3 (09:09→16:44)
[2017-08-18] MEDS: FLUOCINONIDE 0.05% TP SCH ×2 (09:09→17:42)
[2017-08-18] MEDS: Ferrous Sulfate 325 MG TAB PO SCH ×2 (09:09→10:09)
[2017-08-18] MEDS: Lactobacillus Rhamnosus GG 15 Billion CFU CAP.SPRINK PO SCH ×2 (09:09→10:07)
[2017-08-18] MEDS: Venelex 60gm Tube TP SCH (09:09)
--- NOTE | 2017-08-18 10:47 | Infectious Disease Prog Note ---
Infectious Disease Subjective - Review of Systems Service Date: 08/18/17 Subjective: There is no new change, no fever. Infectious Disease Objective - Results Result Diagrams: 08/18/17 05:35 08/18/17 05:35 Recent Labs: Laboratory Last Values WBC 4.6 Th/cmm (4.8-10.8) L 08/18/17 05:35 RBC 2.86 Mil/cmm (3.80-5.80) L 08/18/17 05:35 Hgb 7.4 gm/dL (12-16) L* 08/18/17 05:35 Hct 22.6 % (41.0-60) L 08/18/17 05:35 MCV 79.3 fl (80-99) L 08/18/17 05:35 MCH 25.8 pg (27.0-31.0) L 08/18/17 05:35 MCHC Differential 32.6 pg (28.0-36.0) 08/18/17 05:35 RDW 19.7 % (11.5-20.0) 08/18/17 05:35 Plt Count 172 Th/cmm (150-400) 08/18/17 05:35 MPV 7.4 fl 08/18/17 05:35 Neutrophils % 64.0 % (40.0-80.0) 08/18/17 05:35 Lymphocytes % 24.8 % (20.0-50.0) 08/18/17 05:35 Monocytes % 6.4 % (2.0-10.0) 08/18/17 05:35 Eosinophils % 3.2 % (0.0-5.0) 08/18/17 05:35 Basophils % 1.6 % (0.0-2.0) 08/18/17 05:35 Sodium 138 mEq/L (136-145) 08/18/17 05:35 Potassium 4.3 mEq/L (3.5-5.1) 08/18/17 05:35 Chloride 108 mEq/L (98-107) H 08/18/17 05:35 Carbon Dioxide 22.1 mEq/L (21.0-31.0) 08/18/17 05:35 Anion Gap 12.2 (7.0-16.0) 08/18/17 05:35 BUN 51 mg/dL (7-25) H 08/18/17 05:35 Creatinine 2.4 mg/dL (0.7-1.3) H 08/18/17 05:35 Est GFR ( Amer) 34.6 ml/min (>90) 08/18/17 05:35 Est GFR (Non-Af Amer) 28.6 ml/min 08/18/17 05:35 BUN/Creatinine Ratio 21.3 08/18/17 05:35 Glucose 71 mg/dL (70-105) D 08/18/17 05:35 POC Glucose 71 MG/DL (70 - 105) 08/18/17 06:03 Calcium 8.4 mg/dL (8.6-10.3) L 08/18/17 05:35 Total Bilirubin 0.4 mg/dL (0.3-1.0) 08/18/17 05:35 AST 31 U/L (13-39) 08/18/17 05:35 ALT 25 U/L (7-52) 08/18/17 05:35 Alkaline Phosphatase 55 U/L (34-104) 08/18/17 05:35 Total Protein 6.5 gm/dL (6.0-8.3) 08/18/17 05:35 Albumin 3.2 gm/dL (4.2-5.5) L 08/18/17 05:35 Globulin 3.3 gm/dL 08/18/17 05:35 Albumin/Globulin Ratio 1.0 (1.0-1.8) 08/18/17 05:35 Random Vancomycin 16.4 ug/mL (5.0-40.0) 08/18/17 05:35 - Physical Exam Vitals and I&O: Vital Signs Temp 98.4 F 08/17/17 22:00 Pulse 90 08/18/17 10:14 Resp 18 08/18/17 07:41 BP 100/62 08/18/17 10:14 Pulse Ox 96 08/18/17 07:41 Intake & Output 08/17/17 08/18/17 08/18/17 18:59 06:59 18:59 Intake Total 50 500 Balance 50 500 Weight (lbs) 87.997 kg Intake: Intake, IV Amount 50 50 Piperacillin Sodium/ 50 50 Tazobact 3.375 gm In Sodium Chloride 0.9% 50 ml @ 100 mls/hr IV Q6HR [facility] Rx#:[id number] Oral 450 Other: # Voids 3 Weight Source Bedscale Active Medications: Current Medications Acetaminophen (Tylenol) 650 mg PO Q4H PRN PRN Reason: Pain or Fever >101 Stop: 10/12/17 02:08 Last Admin: 08/14/17 22:45 Dose: 650 mg Acetaminophen/Hydrocodone Bitart (Bates 5mg/325mg) 1 tab PO Q4H PRN PRN Reason: mild pain Stop: 10/12/17 02:10 Last Admin: 08/17/17 21:20 Dose: 1 tab Al Hydrox/Mg Hydrox/Simethicone (Maalox) 30 ml PO Q6HR PRN PRN Reason: GI DISTRESS Stop: 10/12/17 02:10 Albuterol/Ipratropium (Duoneb Neb) 3 ml HHN Q6HRT [facility] Stop: 10/12/17 06:59 Last Admin: 08/18/17 07:34 Dose: 3 ml Albuterol/Ipratropium (Duoneb Neb) 3 ml HHN [id number] [facility] Stop: 10/12/17 06:59 Amiodarone HCl (Cordarone) 200 mg PO DAILY [facility] Stop: 10/12/17 08:59 Last Admin: 08/18/17 10:11 Dose: 200 mg Atorvastatin Calcium (Lipitor) 20 mg PO HS [facility] PRN Reason: Protocol Stop: 10/12/17 20:59 Last Admin: 08/17/17 21:23 Dose: Not Given Carvedilol (Coreg) 3.125 mg PO Q12HR [facility] Stop: 10/12/17 08:59 Last Admin: 08/18/17 09:09 Dose: Not Given [place] Oil/Spanish Balsam/Trypsin (Venelex) 1 appl TP DAILY [facility] Stop: 10/12/17 08:59 Last Admin: 08/18/17 09:09 Dose: Not Given Digoxin (Lanoxin) 0.125 mg PO [facility] Stop: 10/12/17 20:59 Last Admin: 08/17/17 21:00 Dose: Not Given Donepezil HCl (Aricept) 5 mg PO [facility] Stop: 10/12/17 20:59 Last Admin: 08/17/17 21:23 Dose: Not Given Dutasteride (Avodart) 0.5 mg PO DAILY [facility] PRN Reason: Protocol Stop: 10/12/17 08:59 Last Admin: 08/18/17 10:08 Dose: 0.5 mg Epoetin Errol (Epogen) 10,000 units SUBQ MoWeFr [facility] Stop: 10/14/17 14:59 Last Admin: 08/17/17 17:36 Dose: 10,000 units Ferrous Sulfate (Iron) 325 mg PO DAILY [facility] Stop: 10/12/17 08:59 Last Admin: 08/18/17 10:09 Dose: 325 mg Fluocinonide (Fluocinonide 60 Ml) 2 appl TP BID [facility] Stop: 10/12/17 08:59 Last Admin: 08/18/17 09:09 Dose: Not Given Ferric Sodium Gluconate Complex 125 mg/ Sodium Chloride 110 mls @ 100 mls/hr IV Q24HR [facility] Stop: 08/23/17 12:59 Last Admin: 08/17/17 13:21 Dose: Not Given Piperacillin Sod/Tazobactam (Sod 3.375 gm/ Sodium Chloride) 50 mls @ 100 mls/ hr IV Q6HR [facility] Stop: 10/14/17 11:59 Last Admin: 08/18/17 05:39 Dose: 100 mls/hr Vancomycin HCl 1.25 gm/ Sodium (Chloride) 250 mls @ 165 mls/hr IV ONCE ONE Stop: 08/18/17 11:30 Last Admin: 08/18/17 10:13 Dose: 165 mls/hr Insulin Aspart (Novolog) 0 units SUBQ ACHS [facility] PRN Reason: Protocol Stop: 10/12/17 07:29 Last Admin: 08/18/17 06:53 Dose: Not Given Insulin Detemir (Levemir Insulin) 15 units SUBQ BID [facility] PRN Reason: Protocol Stop: 10/12/17 08:59 Last Admin: 08/18/17 09:09 Dose: Not Given Lactobacillus Rhamnosus (Culturelle 15b) 1 each PO DAILY [facility] Stop: 10/12/17 08:59 Last Admin: 08/18/17 10:07 Dose: 1 each Levothyroxine Sodium (Synthroid) 0.025 mg PO QDAC [facility] Stop: 10/12/17 07:29 Last Admin: 08/18/17 09:08 Dose: Not Given Lisinopril (Zestril) 2.5 mg PO DAILY [facility] Stop: 10/12/17 08:59 Last Admin: 08/18/17 10:14 Dose: Not Given Magnesium Hydroxide (Milk Of Magnesia) 30 ml PO HS PRN PRN Reason: Constipation Stop: 10/12/17 02:10 Miscellaneous (Vancomycin Iv Per Pharmacy) 1 ea [facility] PRN PRN PRN Reason: PROTOCOL Stop: 10/12/17 01:59 Nabumetone (Relafen) 750 mg PO BID MATHEW Stop: 10/12/17 08:59 Last Admin: 08/18/17 10:09 Dose: 750 mg Nitroglycerin (Nitrostat) 0.4 mg SL Q5MIN PRN PRN Reason: Chest Pain Stop: 10/12/17 02:10 Quetiapine Fumarate (Seroquel) 25 mg PO BID MATHEW PRN Reason: Protocol Stop: 10/14/17 08:59 Last Admin: 08/18/17 10:09 Dose: 25 mg Rivaroxaban (Xarelto) 15 mg PO DAILY [facility] Stop: 10/12/17 08:59 Last Admin: 08/18/17 10:07 Dose: 15 mg Spironolactone (Aldactone) 25 mg PO DAILY [facility] Stop: 10/12/17 08:59 Last Admin: 08/18/17 10:13 Dose: Not Given Tamsulosin HCl (Flomax) 0.4 mg PO DAILY [facility] Stop: 10/12/17 08:59 Last Admin: 08/18/17 10:09 Dose: 0.4 mg Valsartan (Diovan) 20 mg PO DAILY [facility] Stop: 10/12/17 08:59 Last Admin: 08/18/17 10:13 Dose: Not Given General: no acute distress, well developed, well nourished HEENT: atraumatic, normocephalic, PERRLA, EOMI, moist mucous membrane Neck: supple, no thyromegaly Cardiovascular: S1S2, regular Lungs: clear to auscultation bilaterally, clear to percussion Abdomen: soft, no tender, no distended Extremities: other (bilateral leg wounds/), no cyanosis, no clubbing, no edema Neurological: awake, alert, oriented Infectious Disease Assmt/Plan - Assessment Assessment: 1. Cellulitis of both legs. With open nonhealing complicated wound. Cellulitis of left foot. 2. Left forearm wound. No need of antibiotic for this indication. 3. Diabetes mellitus type 2. 4. Hypertension. 5. Hyperlipidemia. - Plan Plan: Continue the same treatment. Continue vancomyocin IV and wound care. Nutritional Asmnt/Malnutr-PDOC - Dietary Evaluation Malnutrition Findings (Please click <Entered> for more info): Nutritional Asmnt/Malnutrition Start: 08/13/17 11: 40 Text: Status: Cancelled Freq: Document 08/13/17 11:41 LUMAITH (Rec: 08/13/17 11:45 [facility] Nutritional Asmnt/Malnutrition Patient General Information Nutritional Screening Consult Diagnosis Bilateral LE wound Pertinent Medical Hx/Surgical Hx no PMH as of 08/13 @ 1000 Subjective Information PT asleep in bed at time of visit Current Diet Order/ Nutrition Support [facility] Pertinent Medications maalox, lipiotr, Fe, lasix, novolog, synthroid, vancomycin , KCl Pertinent Labs 08/13: Na 139, K 5.4, Cl 109, Co2 23.2, BUN 52, Cr 2.1, Ca 8 .8, glucose 148 Nutritional Hx/Data Height 1.83 m Height (Calculated Centimeters) 182.9 Current Weight (lbs) 74.843 kg Weight (Calculated Kilograms) 74.8 Weight (Calculated Grams) 87574.7 Body Mass Index (BMI) 22.4 Weight Status Approriate GI Symptoms GI Symptoms None Last BM none noted Cultural/Ethnic/Jewish Belief unknown Usual diet at home unknown Skin Integrity/Comment: stacey score 18 Estimated Nutritional Goals BEE in Kcals: Using Current wt Calories/Kcals/Kg 28-33kcals/kg Kcals Calculated 2100-2475kcals/day Protein: Using Current wt Protein g/k.2g/kg Protein Calculated 90g/day Fluid: ml per MD Nutritional Problem 1. Problem Problem No nutrition diagnosis at this time Intervention/Recommendation Comments Recommend continuing [facility] diet Expected Outcomes/Goals Expected Outcomes/Goals PO intake >75% of meals Nutritional Asmnt/Malnutrition Start: 08/15/17 15: 03 Text: Status: Complete Freq: Document 08/15/17 15:04 LCHENG (Rec: 08/15/17 15:12 [facility] Nutritional Asmnt/Malnutrition Patient General Information Nutritional Screening High Risk Diagnosis bilateral lower extremity wound Pertinent Medical Hx/Surgical Hx DM with nephropathy, CKD 3, HTN, BPH, hyperlipidemia, hypothy CHF Subjective Information Pt seen sitting on bed at time of visit, alert and talkative . Pt reported appptite fine. Per EMR, PO intake 100% of meals. [facility] Pertinent Medications ferric sodium gluconate, iron, novolog, levemir, culturelle, synthroid, piperacillin, seroquel Pertinent Labs 08/15 K 5.2, Cl 111, BUN 59, Cr 2.3, glucose 166, POC 172-212 08/14 K 5.3, Cl 109, BUN 58, Cr 2.2 Nutritional Hx/Data Height 1.83 m Height (Calculated Centimeters) 182.9 Current Weight (lbs) 74.843 kg Weight (Calculated Kilograms) 74.8 Weight (Calculated Grams) 26907.7 [place] Body Weight 178 Body Mass Index (BMI) 22.4 Weight Status Approriate GI Symptoms GI Symptoms None Last BM none Difficult in: None Skin Integrity/Comment: skin tear ulcer to right/leftl ower leg, skin tear to left hand Current %PO Good (75-100%) Estimated Nutritional Goals BEE in Kcals: Using Current wt Calories/Kcals/Kg 25-30 Kcals Calculated 9894-8335 Protein: Using Current wt Protein g/k.8-1 monitor renal labs Protein Calculated 60-75 Fluid: ml 1875-2250ml (1ml/kcal) Nutritional Problem 1. Problem Problem altered nutrition related labs Etiology hx of DM, CKD 3 Signs/Symptoms: K 5.2-5.3, BUN 58-59, Cr 2.2-2 .3, glucose 166, POC 172-212 Malnutrition Alert Protein-Calorie Malnutrition N/A Is there a minimum of two criteria No selected? Query Text:Check all the applicable criteria. A minimum of two criteria are recommended for diagnosis of either severe or non-severe malnutrition. Intervention/Recommendation Comments 1. Recommend adding renal diet d/t elevated K, BUN/Cr. 2. Monitor PO intake, wt, labs and skin integrity 3. F/U as high risk in 2-3 days, 08/17-08/18 Expected Outcomes/Goals Expected Outcomes/Goals 1. PO intake to meet at least 75% of nutritional needs. 2. Wt stability, skin to heal, labs to approach WNL.
[2017-08-18] MEDS: Sodium Ferric Gluconate 125 MG in Sodium Chloride 0.9% 100 ML IV SCH (14:00)
--- NOTE | 2017-08-18 21:07 | Progress Notes ---
DATE: IDENTIFICATION: The patient is a 72-year-old male. SUBJECTIVE: The patient was seen and examined. The patient continues to refuse medications as well as IV antibiotic at the time of blood transfusion and also refused yesterday. The patient's hemoglobin today is 7.4. PHYSICAL EXAMINATION: VITAL SIGNS: Temperature 98, pulse is 90, respiratory 18, blood pressure 100/62. HEENT: No facial asymmetry. NECK: Supple, no JVD, no lymphadenopathy. HEART: Both heart sounds are regular. CHEST AND LUNGS: Equal in expansion, no wheezing, no crackles. ABDOMEN: Soft, no guarding. The bowel sounds are present. EXTREMITIES: Bilateral erythema with open wound noted. CLINICAL IMPRESSION: 1. Normocytic normochromic anemia with hemoglobin 7.4, refused blood transfusion. 2. Psychotic disorder, which causing him interfering with his treatment plan considering patient is refusing the treatment. 3. Diabetes. 4. Hypertension. 5. Hyperlipidemia. 6. Status post automatic implantable cardioverter-defibrillator. 7. Degenerative joint disease. PLAN: 1. IV antibiotic. 2. Wound care. 3. Psychiatrist to see and adjust the medication. 4. Monitor blood sugar, blood pressure. 5. Antihypertensive medicine. 6. General nursing care. 7. Cardiac monitoring. 8. Follow consult recommendation. 9. Care plan reviewed and discussed. JOB# [id number]
[2017-08-18] MEDS ORDERED: Haloperidol Lactate 5 mg/mL 1mL Vial IVP PRN (21:09)
[2017-08-18] MEDS: Atorvastatin Calcium 10 MG TAB PO SCH ×2 (22:00→22:36)
[2017-08-19] MEDS ORDERED: Haloperidol Lactate 5 mg/mL 1mL Vial IVP SCH
[2017-08-19] MEDS: Albuterol/Ipratropium Neb 3 ML AERS HHN SCH ×5 (01:10→19:28)
[2017-08-19 06:17] LABS: % MONOCYTES 6.2 % (2.0-10.0); BASOPHILE ABSOLUTE 0.1 Th/cumm (0-0.2); EOSINOPHILE ABSOLUTE 0.1 Th/cmm (0.1-0.4); MEAN CORPUSCULAR HGB CONC 32.4 pg (28.0-36.0); MONOCYTE ABSOLUTE 0.3 Th/cmm (0.3-1.0); NEUTROPHILE ABSOLUTE 3.1 Th/cmm (1.8-8.0); RED CELL DISTRIBUTION WIDTH 19.4 % (11.5-20.0)
[2017-08-19 06:25] LABS: % BASOPHILS 1.7 % (0.0-2.0); % EOSINOPHILS 2.2 % (0.0-5.0); % LYMPHOCYTES 13.4 % (20.0-50.0); % NEUTROPHILS 76.5 % (40.0-80.0); LYMPHOCYTE ABSOLUTE 0.6 Th/cmm (1.5-3.0); MEAN CELL VOLUME 79.6 fl (80-99); MEAN CORPUSCULAR HEMOGLOBIN 25.8 pg (27.0-31.0); MEAN PLATELET VOLUME 7.7 fl; PLATELET COUNT 155 Th/cmm (150-400); RED BLOOD COUNT 2.63 Mil/cmm (3.80-5.80); WHITE BLOOD COUNT 4.2 Th/cmm (4.8-10.8)
[2017-08-19 06:31] LABS: HEMATOCRIT 20.9 % (41.0-60); HEMOGLOBIN 6.8 gm/dL (12-16)
[2017-08-19 06:35] LABS: CALCIUM SERUM 8.4 mg/dL (8.6-10.3); CARBON DIOXIDE 21.8 mEq/L (21.0-31.0); CREATININE - SERUM 2.7 mg/dL (0.7-1.3); GFR AFRICAN-AMERICAN 30.2 ml/min (>90); POTASSIUM SERUM 4.8 mEq/L (3.5-5.1)
--- NOTE | 2017-08-19 08:29 | Progress Notes ---
DATE: 08/17/2017 SUBJECTIVE: Chart reviewed and the patient interviewed. Also discussed the patient's condition with the staff and reviewed records and labs. The patient is still agitated and is still in angry and in irritable mood. The patient also is still suspicious and he is still having sarcastic comments and he is still having difficulty following any of staff directions. At the same time, no major behavioral problems. ASSESSMENT: The patient is still manicky and psychotic. TREATMENT PLAN: Advised the patient to take his medications orally. At the same time, we will continue to monitor his behavior and continue to follow up with his irritability and agitation. JOB# [id number]
[2017-08-19] MEDS: Levothyroxine 0.025 Mg Tab PO SCH (08:44)
[2017-08-19] MEDS: Ferrous Sulfate 325 MG TAB PO SCH (08:44)
[2017-08-19] MEDS: Lactobacillus Rhamnosus GG 15 Billion CFU CAP.SPRINK PO SCH (08:45)
[2017-08-19] MEDS: FLUOCINONIDE 0.05% TP SCH ×2 (08:46→16:30)
[2017-08-19] MEDS: INSULIN ASPART, RECOMBINANT 100 UNITS/ML SUBQ SCH ×4 (08:48→22:31)
[2017-08-19] MEDS: Insulin Detemir 100 units/mL 10mL Vial SUBQ SCH ×2 (09:00→17:48)
[2017-08-19] MEDS: Haloperidol Lactate 5 mg/mL 1mL Vial IVP SCH ×3 (09:00→22:30)
--- NOTE | 2017-08-19 10:23 | Infectious Disease Prog Note ---
Infectious Disease Subjective - Review of Systems Service Date: 08/19/17 Subjective: There is no new change, no fever. Infectious Disease Objective - Results Result Diagrams: 08/19/17 05:29 08/19/17 05:29 Recent Labs: Laboratory Last Values WBC 4.2 Th/cmm (4.8-10.8) L 08/19/17 05:29 RBC 2.63 Mil/cmm (3.80-5.80) L 08/19/17 05:29 Hgb 6.8 gm/dL (12-16) L* 08/19/17 05:29 Hct 20.9 % (41.0-60) L* 08/19/17 05:29 MCV 79.6 fl (80-99) L 08/19/17 05:29 MCH 25.8 pg (27.0-31.0) L 08/19/17 05:29 MCHC Differential 32.4 pg (28.0-36.0) 08/19/17 05:29 RDW 19.4 % (11.5-20.0) 08/19/17 05:29 Plt Count 155 Th/cmm (150-400) 08/19/17 05:29 MPV 7.7 fl 08/19/17 05:29 Neutrophils % 76.5 % (40.0-80.0) 08/19/17 05:29 Lymphocytes % 13.4 % (20.0-50.0) L 08/19/17 05:29 Monocytes % 6.2 % (2.0-10.0) 08/19/17 05:29 Eosinophils % 2.2 % (0.0-5.0) 08/19/17 05:29 Basophils % 1.7 % (0.0-2.0) 08/19/17 05:29 Sodium 137 mEq/L (136-145) 08/19/17 05:29 Potassium 4.8 mEq/L (3.5-5.1) 08/19/17 05:29 Chloride 107 mEq/L (98-107) 08/19/17 05:29 Carbon Dioxide 21.8 mEq/L (21.0-31.0) 08/19/17 05:29 Anion Gap 13.0 (7.0-16.0) 08/19/17 05:29 BUN 55 mg/dL (7-25) H 08/19/17 05:29 Creatinine 2.7 mg/dL (0.7-1.3) H 08/19/17 05:29 Est GFR ( Amer) 30.2 ml/min (>90) 08/19/17 05:29 Est GFR (Non-Af Amer) 25.0 ml/min 08/19/17 05:29 BUN/Creatinine Ratio 20.4 08/19/17 05:29 Glucose 197 mg/dL (70-105) H D 08/19/17 05:29 POC Glucose 203 MG/DL (70 - 105) H 08/19/17 05:28 Calcium 8.4 mg/dL (8.6-10.3) L 08/19/17 05:29 Total Bilirubin 0.4 mg/dL (0.3-1.0) 08/18/17 05:35 AST 31 U/L (13-39) 08/18/17 05:35 ALT 25 U/L (7-52) 08/18/17 05:35 Alkaline Phosphatase 55 U/L (34-104) 08/18/17 05:35 Total Protein 6.5 gm/dL (6.0-8.3) 08/18/17 05:35 Albumin 3.2 gm/dL (4.2-5.5) L 08/18/17 05:35 Globulin 3.3 gm/dL 08/18/17 05:35 Albumin/Globulin Ratio 1.0 (1.0-1.8) 08/18/17 05:35 Random Vancomycin 16.4 ug/mL (5.0-40.0) 08/18/17 05:35 Blood Type O POSITIVE 08/19/17 08:00 Antibody Screen NEGATIVE 08/19/17 08:00 Crossmatch See Detail 08/19/17 08:00 - Physical Exam Vitals and I&O: Vital Signs Temp 98.4 F 08/19/17 00:00 Pulse 77 08/19/17 08:47 Resp 18 08/19/17 06:58 BP 98/55 08/19/17 08:47 Pulse Ox 92 08/19/17 06:58 Intake & Output 08/18/17 08/19/17 08/19/17 18:59 06:59 18:59 Intake Total 650 50 Output Total 500 Balance 150 50 Weight (lbs) 87.997 kg Intake: Intake, IV Amount 150 50 Piperacillin Sodium/ 150 50 Tazobact 3.375 gm In Sodium Chloride 0.9% 50 ml @ 100 mls/hr IV Q6HR [facility] Rx#:[id number] Oral 500 Output: Urine 500 Other: # Bowel Movements 0 Weight Source Bedscale Active Medications: Current Medications Acetaminophen (Tylenol) 650 mg PO Q4H PRN PRN Reason: Pain or Fever >101 Stop: 10/12/17 02:08 Last Admin: 08/14/17 22:45 Dose: 650 mg Acetaminophen/Hydrocodone Bitart ([place] 5mg/325mg) 1 tab PO Q4H PRN PRN Reason: mild pain Stop: 10/12/17 02:10 Last Admin: 08/17/17 21:20 Dose: 1 tab Al Hydrox/Mg Hydrox/Simethicone (Maalox) 30 ml PO Q6HR PRN PRN Reason: GI DISTRESS Stop: 10/12/17 02:10 Albuterol/Ipratropium (Duoneb Neb) 3 ml HHN Q6HRT [facility] Stop: 10/12/17 06:59 Last Admin: 08/19/17 06:58 Dose: 3 ml Albuterol/Ipratropium (Duoneb Neb) 3 ml HHN [id number] [facility] Stop: 10/12/17 06:59 Amiodarone HCl (Cordarone) 200 mg PO DAILY [facility] Stop: 10/12/17 08:59 Last Admin: 08/19/17 08:46 Dose: 200 mg Atorvastatin Calcium (Lipitor) 20 mg PO [facility] PRN Reason: Protocol Stop: 10/12/17 20:59 Last Admin: 08/18/17 22:00 Dose: Not Given Carvedilol (Coreg) 3.125 mg PO Q12HR [facility] Stop: 10/12/17 08:59 Last Admin: 08/19/17 08:47 Dose: Not Given [place] [employer]/[place] Balsam/Trypsin (Venelex) 1 appl TP DAILY [facility] Stop: 10/12/17 08:59 Last Admin: 08/18/17 09:09 Dose: Not Given Digoxin (Lanoxin) 0.125 mg PO [facility] Stop: 10/12/17 20:59 Last Admin: 08/18/17 22:00 Dose: Not Given Donepezil HCl (Aricept) 5 mg PO HS [facility] Stop: 10/12/17 20:59 Last Admin: 08/18/17 22:00 Dose: Not Given Dutasteride (Avodart) 0.5 mg PO DAILY [facility] PRN Reason: Protocol Stop: 10/12/17 08:59 Last Admin: 08/19/17 08:46 Dose: 0.5 mg Epoetin Errol (Epogen) 10,000 units SUBQ MoWeFr [facility] Stop: 10/14/17 14:59 Last Admin: 08/17/17 17:36 Dose: 10,000 units Ferrous Sulfate (Iron) 325 mg PO DAILY [facility] Stop: 10/12/17 08:59 Last Admin: 08/19/17 08:44 Dose: 325 mg Fluocinonide (Fluocinonide 60 Ml) 2 appl TP BID [facility] Stop: 10/12/17 08:59 Last Admin: 08/19/17 08:46 Dose: 2 appl Haloperidol Lactate (Haldol) 2 mg IVP TID [facility] Stop: 10/18/17 08:59 Haloperidol Lactate (Haldol) 2 mg IVP Q6HR PRN PRN Reason: Agitation Stop: 10/18/17 00:00 Ferric Sodium Gluconate Complex 125 mg/ Sodium Chloride 110 mls @ 100 mls/hr IV Q24HR [facility] Stop: 08/23/17 12:59 Last Admin: 08/18/17 14:00 Dose: 100 mls/hr Piperacillin Sod/Tazobactam (Sod 3.375 gm/ Sodium Chloride) 50 mls @ 100 mls/ hr IV Q6HR [facility] Stop: 10/14/17 11:59 Last Admin: 08/19/17 06:53 Dose: 100 mls/hr Insulin Aspart (Novolog) 0 units SUBQ ACHS [facility] PRN Reason: Protocol Stop: 10/12/17 07:29 Last Admin: 08/19/17 08:48 Dose: Not Given Insulin Detemir (Levemir Insulin) 15 units SUBQ BID [facility] PRN Reason: Protocol Stop: 10/12/17 08:59 Last Admin: 08/18/17 16:44 Dose: Not Given Lactobacillus Rhamnosus (Culturelle 15b) 1 each PO DAILY [facility] Stop: 10/12/17 08:59 Last Admin: 08/19/17 08:45 Dose: 1 each Levothyroxine Sodium (Synthroid) 0.025 mg PO QDAC [facility] Stop: 10/12/17 07:29 Last Admin: 08/19/17 08:44 Dose: 0.025 mg Lisinopril (Zestril) 2.5 mg PO DAILY [facility] Stop: 10/12/17 08:59 Last Admin: 08/19/17 08:43 Dose: Not Given Magnesium Hydroxide (Milk Of Magnesia) 30 ml PO HS PRN PRN Reason: Constipation Stop: 10/12/17 02:10 Nabumetone (Relafen) 750 mg PO BID [facility] Stop: 10/12/17 08:59 Last Admin: 08/19/17 08:42 Dose: 750 mg Nitroglycerin (Nitrostat) 0.4 mg SL Q5MIN PRN PRN Reason: Chest Pain Stop: 10/12/17 02:10 Quetiapine Fumarate (Seroquel) 25 mg PO BID [facility] PRN Reason: Protocol Stop: 10/14/17 08:59 Last Admin: 08/19/17 08:44 Dose: 25 mg Rivaroxaban (Xarelto) 15 mg PO DAILY [facility] Stop: 10/12/17 08:59 Last Admin: 08/19/17 08:45 Dose: 15 mg Spironolactone (Aldactone) 25 mg PO DAILY [facility] Stop: 10/12/17 08:59 Last Admin: 08/18/17 10:13 Dose: Not Given Tamsulosin HCl (Flomax) 0.4 mg PO DAILY [facility] Stop: 10/12/17 08:59 Last Admin: 08/19/17 08:44 Dose: 0.4 mg Valsartan (Diovan) 20 mg PO DAILY [facility] Stop: 10/12/17 08:59 Last Admin: 08/18/17 10:13 Dose: Not Given General: no acute distress, well developed, well nourished HEENT: atraumatic, normocephalic, PERRLA, EOMI Neck: supple, no thyromegaly Cardiovascular: S1S2, regular Lungs: clear to auscultation bilaterally, clear to percussion Abdomen: soft, no tender, no distended Extremities: other (leg ulcers bilaterally.), no cyanosis, no clubbing, no edema Neurological: awake, alert, oriented Infectious Disease Assmt/Plan - Assessment Assessment: 1. Cellulitis of both legs. With open nonhealing complicated wound. Cellulitis of left foot. 2. Left forearm wound. No need of antibiotic for this indication. 3. Diabetes mellitus type 2. 4. Hypertension. 5. Hyperlipidemia. - Plan Plan: Continue the same treatment. Continue vancomyocin IV and wound care. Blood transfusion. Nutritional Asmnt/Malnutr-PDOC - Dietary Evaluation Malnutrition Findings (Please click <Entered> for more info): Nutritional Asmnt/Malnutrition Start: 08/13/17 11: 40 Text: Status: Cancelled Freq: Document 08/13/17 11:41 LUMAITH (Rec: 08/13/17 11:45 [facility]) Nutritional Asmnt/Malnutrition Patient General Information Nutritional Screening Consult Diagnosis Bilateral LE wound Pertinent Medical Hx/Surgical Hx no PMH as of 08/13 @ 1000 Subjective Information PT asleep in bed at time of visit Current Diet Order/ Nutrition Support [facility] Pertinent Medications maalox, lipiotr, Fe, lasix, novolog, synthroid, vancomycin , KCl Pertinent Labs 08/13: Na 139, K 5.4, Cl 109, Co2 23.2, BUN 52, Cr 2.1, Ca 8 .8, glucose 148 Nutritional Hx/Data Height 1.83 m Height (Calculated Centimeters) 182.9 Current Weight (lbs) 74.843 kg Weight (Calculated Kilograms) 74.8 Weight (Calculated Grams) 06947.7 Body Mass Index (BMI) 22.4 Weight Status Approriate GI Symptoms GI Symptoms None Last BM none noted Cultural/Ethnic/Religion Belief unknown Usual diet at home unknown Skin Integrity/Comment: stacey score 18 Estimated Nutritional Goals BEE in Kcals: Using Current wt Calories/Kcals/Kg 28-33kcals/kg Kcals Calculated 2100-2475kcals/day Protein: Using Current wt Protein g/k.2g/kg Protein Calculated 90g/day Fluid: ml per MD Nutritional Problem 1. Problem Problem No nutrition diagnosis at this time Intervention/Recommendation Comments Recommend continuing [facility] diet Expected Outcomes/Goals Expected Outcomes/Goals PO intake >75% of meals Nutritional Asmnt/Malnutrition Start: 08/15/17 15: 03 Text: Status: Complete Freq: Document 08/15/17 15:04 LCHENG (Rec: 08/15/17 15:12 VIVIANG [email or web address]) Nutritional Asmnt/Malnutrition Patient General Information Nutritional Screening High Risk Diagnosis bilateral lower extremity wound Pertinent Medical Hx/Surgical Hx DM with nephropathy, CKD 3, HTN, BPH, hyperlipidemia, hypothy CHF Subjective Information Pt seen sitting on bed at time of visit, alert and talkative . Pt reported appptite fine. Per EMR, PO intake 100% of meals. Current Diet Order/ Nutrition Support CCHO-60gm Pertinent Medications ferric sodium gluconate, iron, novolog, levemir, culturelle, synthroid, piperacillin, seroquel Pertinent Labs 08/15 K 5.2, Cl 111, BUN 59, Cr 2.3, glucose 166, POC 172-212 08/14 K 5.3, Cl 109, BUN 58, Cr 2.2 Nutritional Hx/Data Height 1.83 m Height (Calculated Centimeters) 182.9 Current Weight (lbs) 74.843 kg Weight (Calculated Kilograms) 74.8 Weight (Calculated Grams) 42986.7 [place] Body Weight 178 Body Mass Index (BMI) 22.4 Weight Status Approriate GI Symptoms GI Symptoms None Last BM none Difficult in: None Skin Integrity/Comment: skin tear ulcer to right/leftl ower leg, skin tear to left hand Current %PO Good (75-100%) Estimated Nutritional Goals BEE in Kcals: Using Current wt Calories/Kcals/Kg 25-30 Kcals Calculated 6825-1837 Protein: Using Current wt Protein g/k.8-1 monitor renal labs Protein Calculated 60-75 Fluid: ml 1875-2250ml (1ml/kcal) Nutritional Problem 1. Problem Problem altered nutrition related labs Etiology hx of DM, CKD 3 Signs/Symptoms: K 5.2-5.3, BUN 58-59, Cr 2.2-2 .3, glucose 166, POC 172-212 Malnutrition Alert Protein-Calorie Malnutrition N/A Is there a minimum of two criteria No selected? Query Text:Check all the applicable criteria. A minimum of two criteria are recommended for diagnosis of either severe or non-severe malnutrition. Intervention/Recommendation Comments 1. Recommend adding renal diet d/t elevated K, BUN/Cr. 2. Monitor PO intake, wt, labs and skin integrity 3. F/U as high risk in 2-3 days, 08/17-08/18 Expected Outcomes/Goals Expected Outcomes/Goals 1. PO intake to meet at least 75% of nutritional needs. 2. Wt stability, skin to heal, labs to approach WNL.
[2017-08-19] MEDS ORDERED: Probiotic Screen MC PRN (10:35)
[2017-08-19] MEDS: Sodium Ferric Gluconate 125 MG in Sodium Chloride 0.9% 100 ML IV SCH (15:31)
[2017-08-19] MEDS: Epoetin Alfa 20000 Units/mL Vial SUBQ SCH (17:00)
--- NOTE | 2017-08-19 18:54 | Progress Notes ---
DATE: 08/19/2017 THE PATIENT'S ID: A 72-year-old male. SUBJECTIVE: The patient is seen, lying in the bed. The patient has a fluctuating mental status. Haldol has been ordered. Now, the patient is agreeable for blood transfusion. His hemoglobin has dropped down to 6.8. The patient remained hemodynamically stable. PHYSICAL EXAMINATION: VITAL SIGNS: Temperature 98.7, pulse is 77, respiratory rate is 18, blood pressure 100/55. HEENT: No facial asymmetry. Absent upper and lower dentition. NECK: Supple, no JVD. HEART: Regular with positive S3. CHEST AND LUNGS: Equal in expansion with expiratory wheezing. ABDOMEN: Soft. No guarding, no rigidity. Bowel sounds present. EXTREMITIES: Bilateral open wound on the both lower extremities noted with significant amount of erythema. CLINICAL IMPRESSION: 1. Severe anemia and need for blood transfusion. 2. Hypothyroidism. 3. Psychotic disorder. 4. Diabetes mellitus. 5. Degenerative joint disease. 6. Dementia. 7. Cardiac arrhythmia. 8. History of AICD placement. PLAN: 1. Cardiac telemetry unit. 2. Blood transfusion. 3. Wound care. 4. IV antibiotic. 5. General nursing care. 6. Follow lab 7. Diabetes management. 8. Medication management. 9. Follow lab. 10. Follow consult recommendation. 11. Care plan reviewed and discussed with staff. JOB# [id number]
[2017-08-19] MEDS: Atorvastatin Calcium 10 MG TAB PO SCH (22:23)
--- NOTE | 2017-08-19 23:56 | Progress Notes ---
DATE: 08/19/[address] Dee. Case discussed with staff of the patient, reviewed records. The patient is a well-known case to me. I have seen him, admitted him, covering for Dr. Dee. The patient continues to have episodes of agitation, irritability, anger outburst. Continues to be paranoid. He is still unpredictable and impulsive, making sarcastic comments and having hard time and not following redirection, but no major behavioral problems. He is currently compliant with the medication with no side effects. He had an episode and had to be given Haldol on an emergency basis. The patient has been on Seroquel 25 mg twice a day. He is considered a high-fall risk because of his age and the amount of medication he is on. Thank you very much for allowing me to participate in the care of this most interesting gentleman. JOB# [id number]
[2017-08-20 06:23] LABS: % EOSINOPHILS 3.6 % (0.0-5.0); % LYMPHOCYTES 17.4 % (20.0-50.0); % MONOCYTES 6.1 % (2.0-10.0); % NEUTROPHILS 72.9 % (40.0-80.0); EOSINOPHILE ABSOLUTE 0.2 Th/cmm (0.1-0.4); HEMATOCRIT 25.3 % (41.0-60); HEMOGLOBIN 8.3 gm/dL (12-16); LYMPHOCYTE ABSOLUTE 0.8 Th/cmm (1.5-3.0); MEAN CELL VOLUME 84.1 fl (80-99); MEAN CORPUSCULAR HEMOGLOBIN 27.5 pg (27.0-31.0); MEAN CORPUSCULAR HGB CONC 32.7 pg (28.0-36.0); MEAN PLATELET VOLUME 7.6 fl; MONOCYTE ABSOLUTE 0.3 Th/cmm (0.3-1.0); NEUTROPHILE ABSOLUTE 3.1 Th/cmm (1.8-8.0); PLATELET COUNT 151 Th/cmm (150-400); RED BLOOD COUNT 3.01 Mil/cmm (3.80-5.80); RED CELL DISTRIBUTION WIDTH 19.4 % (11.5-20.0); WHITE BLOOD COUNT 4.4 Th/cmm (4.8-10.8)
[2017-08-20 06:30] LABS: ALBUMIN 3.2 gm/dL (4.2-5.5); ANION GAP 12.6 (7.0-16.0); BILIRUBIN,TOTAL 0.8 mg/dL (0.3-1.0); CALCIUM SERUM 8.5 mg/dL (8.6-10.3); CARBON DIOXIDE 21.6 mEq/L (21.0-31.0); CREATININE - SERUM 2.5 mg/dL (0.7-1.3); GFR NON AFRICAN-AMERICAN 27.3 ml/min; POTASSIUM SERUM 4.2 mEq/L (3.5-5.1); TOTAL PROTEIN,SERUM 6.3 gm/dL (6.0-8.3)
[2017-08-20] MEDS: INSULIN ASPART, RECOMBINANT 100 UNITS/ML SUBQ SCH ×4 (06:37→22:25)
[2017-08-20] MEDS: Albuterol/Ipratropium Neb 3 ML AERS HHN SCH ×3 (06:47→19:51)
[2017-08-20] MEDS: Levothyroxine 0.025 Mg Tab PO SCH (08:05)
[2017-08-20] MEDS: Ferrous Sulfate 325 MG TAB PO SCH (09:47)
[2017-08-20] MEDS: Lactobacillus Rhamnosus GG 15 Billion CFU CAP.SPRINK PO SCH (09:50)
[2017-08-20] MEDS: FLUOCINONIDE 0.05% TP SCH ×2 (09:53→16:10)
[2017-08-20] MEDS: Insulin Detemir 100 units/mL 10mL Vial SUBQ SCH ×2 (09:54→16:55)
[2017-08-20] MEDS: Haloperidol Lactate 5 mg/mL 1mL Vial IVP SCH ×3 (09:54→22:30)
[2017-08-20] MEDS: Venelex 60gm Tube TP SCH (10:08)
[2017-08-20] MEDS: Sodium Ferric Gluconate 125 MG in Sodium Chloride 0.9% 100 ML IV SCH (13:01)
[2017-08-20 17:16] LABS: A1C % 6.8 % (4.0-6.0)
--- NOTE | 2017-08-20 20:12 | Progress Notes ---
DATE: IDENTIFICATION: A 72-year-old male. SUBJECTIVE: The patient seen and examined. The patient continued to refuse all the medications. The patient currently under care of psychiatrist. Haldol was given to the patient as well. The patient currently gets agitated at times. The patient remained afebrile. PHYSICAL EXAMINATION: VITAL SIGNS: Temperature 98, pulse is 72, respiratory rate is 18, blood pressure was 122/58. HEENT: No facial asymmetry. NECK: Supple, no JVD. HEART: Regular. CHEST AND LUNGS: Equal in expansion, no wheezing, no crackles. ABDOMEN: Soft. EXTREMITIES: Bilateral lower extremity open wound with erythema noted. AVAILABLE DIAGNOSTIC DATA: Hemoglobin 8.3, white count of 4.4, platelet count of 151, BUN and creatinine is 54 and 2.5. Glucoscan is reviewed. CLINICAL IMPRESSION: 1. Severe anemia, status post blood transfusion. 2. Bilateral lower extremity cellulitis and open wound. 3. Psychotic disorder. 4. Hypertension. 5. Diabetes mellitus. 6. Degenerative joint disease. 7. Cardiac arrhythmia. 8. History of AICD placement. 9. Hypothyroidism. PLAN: 1. Psych medication. 2. Wound care. 3. IV antibiotic. 4. General nursing care. 5. Monitor blood sugar. 6. Blood pressure. 7. Follow lab. 8. Follow consult recommendation. 9. Once patient is cleared from the psychiatrist, we will discharge this patient to lower level of care. JOB# [id number]
[2017-08-20] MEDS: Atorvastatin Calcium 10 MG TAB PO SCH ×2 (22:13→22:31)
--- NOTE | 2017-08-20 23:22 | Infectious Disease Prog Note ---
Infectious Disease Subjective - Review of Systems Service Date: 08/20/17 Subjective: There is no new change, no fever. Infectious Disease Objective - Results Result Diagrams: 08/20/17 05:21 08/20/17 05:21 Recent Labs: Laboratory Last Values WBC 4.4 Th/cmm (4.8-10.8) L 08/20/17 05:21 RBC 3.01 Mil/cmm (3.80-5.80) L 08/20/17 05:21 Hgb 8.3 gm/dL (12-16) L 08/20/17 05:21 Hct 25.3 % (41.0-60) L 08/20/17 05:21 MCV 84.1 fl (80-99) 08/20/17 05:21 MCH 27.5 pg (27.0-31.0) 08/20/17 05:21 MCHC Differential 32.7 pg (28.0-36.0) 08/20/17 05:21 RDW 19.4 % (11.5-20.0) 08/20/17 05:21 Plt Count 151 Th/cmm (150-400) 08/20/17 05:21 MPV 7.6 fl 08/20/17 05:21 Neutrophils % 72.9 % (40.0-80.0) 08/20/17 05:21 Lymphocytes % 17.4 % (20.0-50.0) L 08/20/17 05:21 Monocytes % 6.1 % (2.0-10.0) 08/20/17 05:21 Eosinophils % 3.6 % (0.0-5.0) 08/20/17 05:21 Basophils % 0.0 % (0.0-2.0) 08/20/17 05:21 Sodium 139 mEq/L (136-145) 08/20/17 05:21 Potassium 4.2 mEq/L (3.5-5.1) 08/20/17 05:21 Chloride 109 mEq/L (98-107) H 08/20/17 05:21 Carbon Dioxide 21.6 mEq/L (21.0-31.0) 08/20/17 05:21 Anion Gap 12.6 (7.0-16.0) 08/20/17 05:21 BUN 54 mg/dL (7-25) H 08/20/17 05:21 Creatinine 2.5 mg/dL (0.7-1.3) H 08/20/17 05:21 Est GFR ( Amer) 33.0 ml/min (>90) 08/20/17 05:21 Est GFR (Non-Af Amer) 27.3 ml/min 08/20/17 05:21 BUN/Creatinine Ratio 21.6 08/20/17 05:21 Glucose 136 mg/dL (70-105) H 08/20/17 05:21 POC Glucose 188 MG/DL (70 - 105) H 08/20/17 21:37 Hemoglobin A1c % 6.8 % (4.0-6.0) H 08/19/17 05:29 Calcium 8.5 mg/dL (8.6-10.3) L 08/20/17 05:21 Total Bilirubin 0.8 mg/dL (0.3-1.0) 08/20/17 05:21 AST 22 U/L (13-39) 08/20/17 05:21 ALT 20 U/L (7-52) 08/20/17 05:21 Alkaline Phosphatase 56 U/L (34-104) 08/20/17 05:21 Total Protein 6.3 gm/dL (6.0-8.3) 08/20/17 05:21 Albumin 3.2 gm/dL (4.2-5.5) L 08/20/17 05:21 Globulin 3.1 gm/dL 08/20/17 05:21 Albumin/Globulin Ratio 1.0 (1.0-1.8) 08/20/17 05:21 Random Vancomycin 23.2 ug/mL (5.0-40.0) 08/19/17 05:29 Blood Type O POSITIVE 08/19/17 08:00 Antibody Screen NEGATIVE 08/19/17 08:00 Crossmatch See Detail 08/19/17 08:00 - Physical Exam Vitals and I&O: Vital Signs Temp 97 F 08/20/17 15:00 Pulse 62 08/20/17 22:31 Resp 16 08/20/17 19:51 BP 109/65 08/20/17 22:20 Pulse Ox 94 08/20/17 19:51 Intake & Output 08/20/17 08/20/17 08/21/17 06:59 18:59 06:59 Intake Total 1000 650 Output Total 600 Balance 400 650 Weight (lbs) 87.997 kg 87.09 kg Intake: Intake, IV Amount 100 50 Piperacillin Sodium/ 100 50 Tazobact 3.375 gm In Sodium Chloride 0.9% 50 ml @ 100 mls/hr IV Q6HR [facility] Rx#:[id number] Oral 400 600 Blood Product 500 Output: Urine 600 Other: # Voids 4 # Bowel Movements 1 0 Weight Source Bedscale Bedscale Active Medications: Current Medications Acetaminophen (Tylenol) 650 mg PO Q4H PRN PRN Reason: Pain or Fever >101 Stop: 10/12/17 02:08 Last Admin: 08/20/17 01:38 Dose: 650 mg Acetaminophen/Hydrocodone Bitart ([place] 5mg/325mg) 1 tab PO Q4H PRN PRN Reason: mild pain Stop: 10/12/17 02:10 Last Admin: 08/17/17 21:20 Dose: 1 tab Al Hydrox/Mg Hydrox/Simethicone (Maalox) 30 ml PO Q6HR PRN PRN Reason: GI DISTRESS Stop: 10/12/17 02:10 Albuterol/Ipratropium (Duoneb Neb) 3 ml HHN [id number] [facility] Stop: 10/12/17 06:59 Last Admin: 08/20/17 19:51 Dose: Not Given Amiodarone HCl (Cordarone) 200 mg PO DAILY [facility] Stop: 10/12/17 08:59 Last Admin: 08/20/17 10:06 Dose: Not Given Atorvastatin Calcium (Lipitor) 20 mg PO [facility] PRN Reason: Protocol Stop: 10/12/17 20:59 Last Admin: 08/20/17 22:31 Dose: Not Given Carvedilol (Coreg) 3.125 mg PO Q12HR [facility] Stop: 10/12/17 08:59 Last Admin: 08/20/17 22:20 Dose: Not Given [place] Oil/[place]ra[place] Balsam/Trypsin (Venelex) 1 appl TP DAILY [facility] Stop: 10/12/17 08:59 Last Admin: 08/20/17 10:08 Dose: Not Given Digoxin (Lanoxin) 0.125 mg PO HS [facility] Stop: 10/12/17 20:59 Last Admin: 08/20/17 22:31 Dose: Not Given Donepezil HCl (Aricept) 5 mg PO HS [facility] Stop: 10/12/17 20:59 Last Admin: 08/20/17 22:32 Dose: Not Given Dutasteride (Avodart) 0.5 mg PO DAILY [facility] PRN Reason: Protocol Stop: 10/12/17 08:59 Last Admin: 08/20/17 09:47 Dose: 0.5 mg Epoetin Errol (Epogen) 10,000 units SUBQ MoWeFr [facility] Stop: 10/14/17 14:59 Last Admin: 08/19/17 17:00 Dose: 10,000 units Ferrous Sulfate (Iron) 325 mg PO DAILY [facility] Stop: 10/12/17 08:59 Last Admin: 08/20/17 09:47 Dose: 325 mg Fluocinonide (Fluocinonide 60 Ml) 2 appl TP BID [facility] Stop: 10/12/17 08:59 Last Admin: 08/20/17 16:10 Dose: 2 appl Haloperidol Lactate (Haldol) 2 mg IVP TID [facility] Stop: 10/18/17 08:59 Last Admin: 08/20/17 22:30 Dose: Not Given Haloperidol Lactate (Haldol) 2 mg IVP Q6HR PRN PRN Reason: Agitation Stop: 10/18/17 00:00 Ferric Sodium Gluconate Complex 125 mg/ Sodium Chloride 110 mls @ 100 mls/hr IV Q24HR [facility] Stop: 08/23/17 12:59 Last Admin: 08/20/17 13:01 Dose: 100 mls/hr Piperacillin Sod/Tazobactam (Sod 3.375 gm/ Sodium Chloride) 50 mls @ 100 mls/ hr IV Q6HR [facility] Stop: 10/14/17 11:59 Last Admin: 08/20/17 17:21 Dose: 100 mls/hr Vancomycin HCl 1 gm/ Sodium (Chloride) 250 mls @ 165 mls/hr IV Q48H [facility] Stop: 10/19/17 09:59 Last Admin: 08/20/17 09:58 Dose: 165 mls/hr Insulin Aspart (Novolog) 0 units SUBQ ACHS [facility] PRN Reason: Protocol Stop: 10/12/17 07:29 Last Admin: 08/20/17 22:25 Dose: Not Given Insulin Detemir (Levemir Insulin) 15 units SUBQ BID [facility] PRN Reason: Protocol Stop: 10/12/17 08:59 Last Admin: 08/20/17 16:55 Dose: Not Given Lactobacillus Rhamnosus (Culturelle 15b) 1 each PO DAILY [facility] Stop: 10/12/17 08:59 Last Admin: 08/20/17 09:50 Dose: 1 each Levothyroxine Sodium (Synthroid) 0.025 mg PO QDAC [facility] Stop: 10/12/17 07:29 Last Admin: 08/20/17 08:05 Dose: 0.025 mg Lisinopril (Zestril) 2.5 mg PO DAILY [facility] Stop: 10/12/17 08:59 Last Admin: 08/20/17 10:07 Dose: Not Given Magnesium Hydroxide (Milk Of Magnesia) 30 ml PO HS PRN PRN Reason: Constipation Stop: 10/12/17 02:10 Miscellaneous (Probiotic Screen) 1 ea PRN PRN PRN Reason: PROTOCOL Stop: 10/18/17 10:34 Miscellaneous (Vancomycin Iv Per Pharmacy) 1 ea PRN [facility] Stop: 10/18/17 13:59 Nabumetone (Relafen) 750 mg PO BID [facility] Stop: 10/12/17 08:59 Last Admin: 08/20/17 16:11 Dose: 750 mg Nitroglycerin (Nitrostat) 0.4 mg SL Q5MIN PRN PRN Reason: Chest Pain Stop: 10/12/17 02:10 Quetiapine Fumarate (Seroquel) 25 mg PO BID [facility] PRN Reason: Protocol Stop: 10/14/17 08:59 Last Admin: 08/20/17 16:10 Dose: 25 mg Rivaroxaban (Xarelto) 15 mg PO DAILY [facility] Stop: 10/12/17 08:59 Last Admin: 08/20/17 09:48 Dose: 15 mg Spironolactone (Aldactone) 25 mg PO DAILY [facility] Stop: 10/12/17 08:59 Last Admin: 08/20/17 10:07 Dose: Not Given Tamsulosin HCl (Flomax) 0.4 mg PO DAILY [facility] Stop: 10/12/17 08:59 Last Admin: 08/20/17 09:50 Dose: 0.4 mg Valsartan (Diovan) 20 mg PO DAILY [facility] Stop: 10/12/17 08:59 Last Admin: 08/20/17 10:08 Dose: Not Given General: no acute distress, well developed, well nourished HEENT: atraumatic, normocephalic, PERRLA, EOMI Neck: supple, no thyromegaly Cardiovascular: S1S2, regular Lungs: clear to auscultation bilaterally, clear to percussion Abdomen: soft, no tender, no distended Extremities: other (bilateral eg ulcers.), no cyanosis, no clubbing, no edema Neurological: awake, alert, oriented Infectious Disease Assmt/Plan - Assessment Assessment: 1. Cellulitis of both legs. With open nonhealing complicated wound. Cellulitis of left foot. 2. Left forearm wound. No need of antibiotic for this indication. 3. Diabetes mellitus type 2. 4. Hypertension. 5. Hyperlipidemia. - Plan Plan: Continue the same treatment. Continue vancomyocin IV and wound care. Blood transfusion. Nutritional Asmnt/Malnutr-PDOC - Dietary Evaluation Malnutrition Findings (Please click <Entered> for more info): Nutritional Asmnt/Malnutrition Start: 08/13/17 11: 40 Text: Status: Cancelled Freq: Document 08/13/17 11:41 RODO (Rec: 08/13/17 11:45 RODO [id number]) Nutritional Asmnt/Malnutrition Patient General Information Nutritional Screening Consult Diagnosis Bilateral LE wound Pertinent Medical Hx/Surgical Hx no PMH as of 08/13 @ 1000 Subjective Information PT asleep in bed at time of visit Current Diet Order/ Nutrition Support [facility] Pertinent Medications maalox, lipiotr, Fe, lasix, novolog, synthroid, vancomycin , KCl Pertinent Labs 08/13: Na 139, K 5.4, Cl 109, Co2 23.2, BUN 52, Cr 2.1, Ca 8 .8, glucose 148 Nutritional Hx/Data Height 1.83 m Height (Calculated Centimeters) 182.9 Current Weight (lbs) 74.843 kg Weight (Calculated Kilograms) 74.8 Weight (Calculated Grams) 22408.7 Body Mass Index (BMI) 22.4 Weight Status Approriate GI Symptoms GI Symptoms None Last BM none noted Cultural/Ethnic/Christianity Belief unknown Usual diet at home unknown Skin Integrity/Comment: stacey score 18 Estimated Nutritional Goals BEE in Kcals: Using Current wt Calories/Kcals/Kg 28-33kcals/kg Kcals Calculated 2100-2475kcals/day Protein: Using Current wt Protein g/k.2g/kg Protein Calculated 90g/day Fluid: ml per MD Nutritional Problem 1. Problem Problem No nutrition diagnosis at this time Intervention/Recommendation Comments Recommend continuing [facility] diet Expected Outcomes/Goals Expected Outcomes/Goals PO intake >75% of meals Nutritional Asmnt/Malnutrition Start: 08/15/17 15: 03 Text: Status: Complete Freq: Document 08/15/17 15:04 LCHENG (Rec: 08/15/17 15:12 LCHENG [email or web address]) Nutritional Asmnt/Malnutrition Patient General Information Nutritional Screening High Risk Diagnosis bilateral lower extremity wound Pertinent Medical Hx/Surgical Hx DM with nephropathy, CKD 3, HTN, BPH, hyperlipidemia, hypothy CHF Subjective Information Pt seen sitting on bed at time of visit, alert and talkative . Pt reported appptite fine. Per EMR, PO intake 100% of meals. Current Diet Order/ [facility] Pertinent Medications ferric sodium gluconate, iron, novolog, levemir, culturelle, synthroid, piperacillin, seroquel Pertinent Labs 08/15 K 5.2, Cl 111, BUN 59, Cr 2.3, glucose 166, POC 172-212 5 K 5.3, Cl 109, BUN 58, Cr 2.2 Nutritional Hx/Data Height 1.83 m Height (Calculated Centimeters) 182.9 Current Weight (lbs) 74.843 kg Weight (Calculated Kilograms) 74.8 Weight (Calculated Grams) 15939.7 [place] Body Weight 178 Body Mass Index (BMI) 22.4 Weight Status Approriate GI Symptoms GI Symptoms None Last BM none Difficult in: None Skin Integrity/Comment: skin tear ulcer to right/leftl ower leg, skin tear to left hand Current %PO Good (75-100%) Estimated Nutritional Goals BEE in Kcals: Using Current wt Calories/Kcals/Kg 25-30 Kcals Calculated 9339-5124 Protein: Using Current wt Protein g/k.8-1 monitor renal labs Protein Calculated 60-75 Fluid: ml 1875-2250ml (1ml/kcal) Nutritional Problem 1. Problem Problem altered nutrition related labs Etiology hx of DM, CKD 3 Signs/Symptoms: K 5.2-5.3, BUN 58-59, Cr 2.2-2 .3, glucose 166, POC 172-212 Malnutrition Alert Protein-Calorie Malnutrition N/A Is there a minimum of two criteria No selected? Query Text:Check all the applicable criteria. A minimum of two criteria are recommended for diagnosis of either severe or non-severe malnutrition. Intervention/Recommendation Comments 1. Recommend adding renal diet d/t elevated K, BUN/Cr. 2. Monitor PO intake, wt, labs and skin integrity 3. F/U as high risk in 2-3 days, 08/17-08/18 Expected Outcomes/Goals Expected Outcomes/Goals 1. PO intake to meet at least 75% of nutritional needs. 2. Wt stability, skin to heal, labs to approach WNL.
[2017-08-21] MEDS: Levothyroxine 0.025 Mg Tab PO SCH (06:31)
[2017-08-21] MEDS: Albuterol/Ipratropium Neb 3 ML AERS HHN SCH ×3 (06:59→18:53)
[2017-08-21] MEDS: INSULIN ASPART, RECOMBINANT 100 UNITS/ML SUBQ SCH ×4 (07:51→21:00)
[2017-08-21] MEDS: FLUOCINONIDE 0.05% TP SCH ×2 (09:07→16:32)
[2017-08-21] MEDS: Ferrous Sulfate 325 MG TAB PO SCH (09:09)
[2017-08-21] MEDS: Lactobacillus Rhamnosus GG 15 Billion CFU CAP.SPRINK PO SCH (09:11)
[2017-08-21] MEDS: Insulin Detemir 100 units/mL 10mL Vial SUBQ SCH ×2 (09:13→16:50)
[2017-08-21] MEDS: Haloperidol Lactate 5 mg/mL 1mL Vial IVP SCH ×3 (09:13→21:07)
[2017-08-21] MEDS: Venelex 60gm Tube TP SCH (12:36)
[2017-08-21] MEDS: Sodium Ferric Gluconate 125 MG in Sodium Chloride 0.9% 100 ML IV SCH (12:52)
--- NOTE | 2017-08-21 14:36 | General Progress Note ---
Objective - Results Result Diagrams: 08/20/17 05:21 08/20/17 05:21 Recent Labs: Laboratory Last Values WBC 4.4 Th/cmm (4.8-10.8) L 08/20/17 05:21 RBC 3.01 Mil/cmm (3.80-5.80) L 08/20/17 05:21 Hgb 8.3 gm/dL (12-16) L 08/20/17 05:21 Hct 25.3 % (41.0-60) L 08/20/17 05:21 MCV 84.1 fl (80-99) 08/20/17 05:21 MCH 27.5 pg (27.0-31.0) 08/20/17 05:21 MCHC Differential 32.7 pg (28.0-36.0) 08/20/17 05:21 RDW 19.4 % (11.5-20.0) 08/20/17 05:21 Plt Count 151 Th/cmm (150-400) 08/20/17 05:21 MPV 7.6 fl 08/20/17 05:21 Neutrophils % 72.9 % (40.0-80.0) 08/20/17 05:21 Lymphocytes % 17.4 % (20.0-50.0) L 08/20/17 05:21 Monocytes % 6.1 % (2.0-10.0) 08/20/17 05:21 Eosinophils % 3.6 % (0.0-5.0) 08/20/17 05:21 Basophils % 0.0 % (0.0-2.0) 08/20/17 05:21 Sodium 139 mEq/L (136-145) 08/20/17 05:21 Potassium 4.2 mEq/L (3.5-5.1) 08/20/17 05:21 Chloride 109 mEq/L (98-107) H 08/20/17 05:21 Carbon Dioxide 21.6 mEq/L (21.0-31.0) 08/20/17 05:21 Anion Gap 12.6 (7.0-16.0) 08/20/17 05:21 BUN 54 mg/dL (7-25) H 08/20/17 05:21 Creatinine 2.5 mg/dL (0.7-1.3) H 08/20/17 05:21 Est GFR ( Amer) 33.0 ml/min (>90) 08/20/17 05:21 Est GFR (Non-Af Amer) 27.3 ml/min 08/20/17 05:21 BUN/Creatinine Ratio 21.6 08/20/17 05:21 Glucose 136 mg/dL (70-105) H 08/20/17 05:21 POC Glucose 132 MG/DL (70 - 105) H 08/21/17 11:48 Hemoglobin A1c % 6.8 % (4.0-6.0) H 08/19/17 05:29 Calcium 8.5 mg/dL (8.6-10.3) L 08/20/17 05:21 Total Bilirubin 0.8 mg/dL (0.3-1.0) 08/20/17 05:21 AST 22 U/L (13-39) 08/20/17 05:21 ALT 20 U/L (7-52) 08/20/17 05:21 Alkaline Phosphatase 56 U/L (34-104) 08/20/17 05:21 Total Protein 6.3 gm/dL (6.0-8.3) 08/20/17 05:21 Albumin 3.2 gm/dL (4.2-5.5) L 08/20/17 05:21 Globulin 3.1 gm/dL 08/20/17 05:21 Albumin/Globulin Ratio 1.0 (1.0-1.8) 08/20/17 05:21 Stool Occult Blood POSITIVE (NEGATIVE) H 08/21/17 10:30 Random Vancomycin 23.2 ug/mL (5.0-40.0) 08/19/17 05:29 Blood Type O POSITIVE 08/19/17 08:00 Antibody Screen NEGATIVE 08/19/17 08:00 Crossmatch See Detail 08/19/17 08:00 - Physical Exam Vitals and I&O: Vital Signs Temp 98.4 F 08/21/17 08:00 Pulse 84 08/21/17 12:10 Resp 20 08/21/17 12:10 BP 93/56 08/21/17 09:13 Pulse Ox 95 08/21/17 12:10 Intake & Output 08/20/17 08/21/17 08/21/17 18:59 06:59 18:59 Intake Total 810 250 50 Balance 810 250 50 Weight (lbs) 87.09 kg 86.863 kg Intake: Intake, IV Amount 210 50 50 Piperacillin Sodium/ 100 50 50 Tazobact 3.375 gm In Sodium Chloride 0.9% 50 ml @ 100 mls/hr IV Q6HR [facility]PLACED BY [facility] Rx#:[id number] Sodium Ferric Gluconate 110 125 mg In Sodium Chloride 0.9% 100 ml @ 100 mls/hr IV Q24HR [facility]PL[facility] Rx#: [id number] Oral 600 200 Other: # Voids 4 1 # Bowel Movements 0 1 Stool Characteristics Soft Soft Weight Source Bedscale Bedscale Active Medications: Current Medications Acetaminophen (Tylenol) 650 mg PO Q4H PRN PRN Reason: Pain or Fever >101 Stop: 10/12/17 02:08 Last Admin: 08/20/17 01:38 Dose: 650 mg Acetaminophen/Hydrocodone Bitart ([place] 5mg/325mg) 1 tab PO Q4H PRN PRN Reason: mild pain Stop: 10/12/17 02:10 Last Admin: 08/17/17 21:20 Dose: 1 tab Al Hydrox/Mg Hydrox/Simethicone (Maalox) 30 ml PO Q6HR PRN PRN Reason: GI DISTRESS Stop: 10/12/17 02:10 Albuterol/Ipratropium (Duoneb Neb) 3 ml HHN [id number] [facility] Stop: 10/12/17 06:59 Last Admin: 08/21/17 12:09 Dose: 3 ml Amiodarone HCl (Cordarone) 200 mg PO DAILY [facility] Stop: 10/12/17 08:59 Last Admin: 08/21/17 09:12 Dose: Not Given Atorvastatin Calcium (Lipitor) 20 mg PO HS [facility] PRN Reason: Protocol Stop: 10/12/17 20:59 Last Admin: 08/20/17 22:31 Dose: Not Given Carvedilol (Coreg) 3.125 mg PO Q12HR [facility] Stop: 10/12/17 08:59 Last Admin: 08/21/17 09:12 Dose: Not Given [place] Oil/[place]uanian Balsam/Trypsin (Venelex) 1 appl TP DAILY [facility] Stop: 10/12/17 08:59 Last Admin: 08/21/17 12:36 Dose: Not Given Digoxin (Lanoxin) 0.125 mg PO HS [facility] Stop: 10/12/17 20:59 Last Admin: 08/20/17 22:31 Dose: Not Given Donepezil HCl (Aricept) 5 mg PO HS [facility] Stop: 10/12/17 20:59 Last Admin: 08/20/17 22:32 Dose: Not Given Dutasteride (Avodart) 0.5 mg PO DAILY [facility] PRN Reason: Protocol Stop: 10/12/17 08:59 Last Admin: 08/21/17 09:09 Dose: 0.5 mg Epoetin Errol (Epogen) 10,000 units SUBQ MoWeFr [facility]PL[facility] Stop: 10/14/17 14:59 Last Admin: 08/19/17 17:00 Dose: 10,000 units Ferrous Sulfate (Iron) 325 mg PO DAILY [facility] Stop: 10/12/17 08:59 Last Admin: 08/21/17 09:09 Dose: 325 mg Fluocinonide (Fluocinonide 60 Ml) 2 appl TP BID [facility] Stop: 10/12/17 08:59 Last Admin: 08/21/17 09:07 Dose: 2 appl Haloperidol Lactate (Haldol) 2 mg IVP TID [facility] Stop: 10/18/17 08:59 Last Admin: 08/21/17 09:13 Dose: Not Given Haloperidol Lactate (Haldol) 2 mg IVP Q6HR PRN PRN Reason: Agitation Stop: 10/18/17 00:00 Ferric Sodium Gluconate Complex 125 mg/ Sodium Chloride 110 mls @ 100 mls/hr IV Q24HR [facility] Stop: 08/23/17 12:59 Last Admin: 08/21/17 12:52 Dose: 100 mls/hr Piperacillin Sod/Tazobactam (Sod 3.375 gm/ Sodium Chloride) 50 mls @ 100 mls/ hr IV Q6HR [facility] Stop: 10/14/17 11:59 Last Admin: 08/21/17 11:11 Dose: 100 mls/hr Vancomycin HCl 1 gm/ Sodium (Chloride) 250 mls @ 165 mls/hr IV Q48H [facility] Stop: 10/19/17 09:59 Last Admin: 08/20/17 09:58 Dose: 165 mls/hr Insulin Aspart (Novolog) 0 units SUBQ ACHS [facility]PL[facility] PRN Reason: Protocol Stop: 10/12/17 07:29 Last Admin: 08/21/17 11:58 Dose: Not Given Insulin Detemir (Levemir Insulin) 15 units SUBQ BID [facility] PRN Reason: Protocol Stop: 10/12/17 08:59 Last Admin: 08/21/17 09:13 Dose: Not Given Lactobacillus Rhamnosus (Culturelle 15b) 1 each PO DAILY [facility] Stop: 10/12/17 08:59 Last Admin: 08/21/17 09:11 Dose: 1 each Levothyroxine Sodium (Synthroid) 0.025 mg PO QDAC [facility] Stop: 10/12/17 07:29 Last Admin: 08/21/17 06:31 Dose: Not Given Lisinopril (Zestril) 2.5 mg PO DAILY [facility] Stop: 10/12/17 08:59 Last Admin: 08/21/17 09:13 Dose: Not Given Magnesium Hydroxide (Milk Of Magnesia) 30 ml PO PRN PRN Reason: Constipation Stop: 10/12/17 02:10 Miscellaneous (Probiotic Screen) 1 ea PRN PRN PRN Reason: PROTOCOL Stop: 10/18/17 10:34 Miscellaneous (Vancomycin Iv Per Pharmacy) 1 ea MC PRN REPLACED BY [facility] Stop: 10/18/17 13:59 Nabumetone (Relafen) 750 mg PO BID [facility]PL[facility] BY [facility] Stop: 10/12/17 08:59 Last Admin: 08/21/17 09:09 Dose: 750 mg Nitroglycerin (Nitrostat) 0.4 mg SL Q5MIN PRN PRN Reason: Chest Pain Stop: 10/12/17 02:10 Quetiapine Fumarate (Seroquel) 25 mg PO BID [facility] PRN Reason: Protocol Stop: 10/14/17 08:59 Last Admin: 08/21/17 09:11 Dose: 25 mg Rivaroxaban (Xarelto) 15 mg PO DAILY [facility] Stop: 10/12/17 08:59 Last Admin: 08/21/17 09:07 Dose: 15 mg Spironolactone (Aldactone) 25 mg PO DAILY [facility] Stop: 10/12/17 08:59 Last Admin: 08/21/17 09:13 Dose: Not Given Tamsulosin HCl (Flomax) 0.4 mg PO DAILY [facility] Stop: 10/12/17 08:59 Last Admin: 08/21/17 09:11 Dose: 0.4 mg Valsartan (Diovan) 20 mg PO DAILY [facility] Stop: 10/12/17 08:59 Last Admin: 08/21/17 09:14 Dose: Not Given General: No acute distress Cardiovascular: Regular rate Lungs: Clear to auscultation Extremities: Other (open wound with surrouding erythema with discharge noted) Nutritional Asmnt/Malnutr-PDOC - Dietary Evaluation Malnutrition Findings (Please click <Entered> for more info): Nutritional Asmnt/Malnutrition Start: 08/13/17 11: 40 Text: Status: Cancelled Freq: Document 08/13/17 11:41 [email or web address] (Rec: 08/13/17 11:45 [facility] Nutritional Asmnt/Malnutrition Patient General Information Nutritional Screening Consult Diagnosis Bilateral LE wound Pertinent Medical Hx/Surgical Hx no PMH as of 08/13 @ 1000 Subjective Information PT asleep in bed at time of visit Current Diet Order/ Nutrition Support [facility] Pertinent Medications maalox, lipiotr, Fe, lasix, novolog, synthroid, vancomycin , KCl Pertinent Labs 08/13: Na 139, K 5.4, Cl 109, Co2 23.2, BUN 52, Cr 2.1, Ca 8 .8, glucose 148 Nutritional Hx/Data Height 1.83 m Height (Calculated Centimeters) 182.9 Current Weight (lbs) 74.843 kg Weight (Calculated Kilograms) 74.8 Weight (Calculated Grams) 70880.7 Body Mass Index (BMI) 22.4 Weight Status Approriate GI Symptoms GI Symptoms None Last BM none noted Cultural/Ethnic/Orthodox Belief unknown Usual diet at home unknown Skin Integrity/Comment: stacey score 18 Estimated Nutritional Goals BEE in Kcals: Using Current wt Calories/Kcals/Kg 28-33kcals/kg Kcals Calculated 2100-2475kcals/day Protein: Using Current wt Protein g/k.2g/kg Protein Calculated 90g/day Fluid: ml per MD Nutritional Problem 1. Problem Problem No nutrition diagnosis at this time Intervention/Recommendation Comments Recommend continuing [facility] diet Expected Outcomes/Goals Expected Outcomes/Goals PO intake >75% of meals Nutritional Asmnt/Malnutrition Start: 08/15/17 15: 03 Text: Status: Complete Freq: Document 08/15/17 15:04 LCHENG (Rec: 08/15/17 15:12 LCHENG [email or web address]) Nutritional Asmnt/Malnutrition Patient General Information Nutritional Screening High Risk Diagnosis bilateral lower extremity wound Pertinent Medical Hx/Surgical Hx DM with nephropathy, CKD 3, HTN, BPH, hyperlipidemia, hypothy CHF Subjective Information Pt seen sitting on bed at time of visit, alert and talkative . Pt reported appptite fine. Per EMR, PO intake 100% of meals. Current Diet Order/ Nutrition Support [facility]-60gm Pertinent Medications ferric sodium gluconate, iron, novolog, levemir, culturelle, synthroid, piperacillin, seroquel Pertinent Labs 08/15 K 5.2, Cl 111, BUN 59, Cr 2.3, glucose 166, POC 172-212 08/14 K 5.3, Cl 109, BUN 58, Cr 2.2 Nutritional Hx/Data Height 1.83 m Height (Calculated Centimeters) 182.9 Current Weight (lbs) 74.843 kg Weight (Calculated Kilograms) 74.8 Weight (Calculated Grams) 65780.7 [place] Body Weight 178 Body Mass Index (BMI) 22.4 Weight Status Approriate GI Symptoms GI Symptoms None Last BM none Difficult in: None Skin Integrity/Comment: skin tear ulcer to right/leftl ower leg, skin tear to left hand Current %PO Good (75-100%) Estimated Nutritional Goals BEE in Kcals: Using Current wt Calories/Kcals/Kg 25-30 Kcals Calculated 8383-2758 Protein: Using Current wt Protein g/k.8-1 monitor renal labs Protein Calculated 60-75 Fluid: ml 1875-2250ml (1ml/kcal) Nutritional Problem 1. Problem Problem altered nutrition related labs Etiology hx of DM, CKD 3 Signs/Symptoms: K 5.2-5.3, BUN 58-59, Cr 2.2-2 .3, glucose 166, POC 172-212 Malnutrition Alert Protein-Calorie Malnutrition N/A Is there a minimum of two criteria No selected? Query Text:Check all the applicable criteria. A minimum of two criteria are recommended for diagnosis of either severe or non-severe malnutrition. Intervention/Recommendation Comments 1. Recommend adding renal diet d/t elevated K, BUN/Cr. 2. Monitor PO intake, wt, labs and skin integrity 3. F/U as high risk in 2-3 days, 08/17-08/18 Expected Outcomes/Goals Expected Outcomes/Goals 1. PO intake to meet at least 75% of nutritional needs. 2. Wt stability, skin to heal, labs to approach WNL.
[2017-08-21] MEDS: Atorvastatin Calcium 10 MG TAB PO SCH (21:05)
[2017-08-22] MEDS: Hydrocodone/APAP 5mg/325mg Tab PO PRN (01:01)
--- NOTE | 2017-08-22 04:27 | Progress Notes ---
DATE: IDENTIFICATION: A 72-year-old male. SUBJECTIVE: The patient seen and examined. The patient has a period of agitation. The patient does refuse Medicare of his medication at that time. The patient currently denies any chest pain, shortness of breath, palpitation, dizziness, nausea. OBJECTIVE: VITAL SIGNS: Temperature 98.4, pulse 84, respiratory rate 20, blood pressure 100/56. HEENT: Poor dentition. NECK: Supple, no JVD. HEART: Regular, no murmur. CHEST AND LUNGS: Equal in expansion. LUNGS: No wheezing, no crackles. ABDOMEN: Soft. EXTREMITIES: Open wound noted with marked erythema. CLINICAL IMPRESSION: 1. Bilateral lower extremity cellulitis. 2. Severe anemia, status post blood transfusion. 3. Hypertension. 4. Diabetes. 5. Cardiac arrhythmia. 6. Degenerative joint disease. 7. Status post AICD placement. PLAN: 1. Wound care. 2. Psych medication. 3. Iron therapy. 4. Procrit. 5. General nursing care. 6. Follow lab. 7. Follow consult recommendation. 8. Care plan reviewed and discussed with staff. JOB# [id number]
[2017-08-22 06:29] LABS: ALB/GLOB RATIO 1.1 (1.0-1.8); ALBUMIN 3.3 gm/dL (4.2-5.5); ANION GAP 12.2 (7.0-16.0); BILIRUBIN,TOTAL 0.5 mg/dL (0.3-1.0); CALCIUM SERUM 8.4 mg/dL (8.6-10.3); CARBON DIOXIDE 20.4 mEq/L (21.0-31.0); CREATININE - SERUM 2.6 mg/dL (0.7-1.3); GFR AFRICAN-AMERICAN 31.5 ml/min (>90); GFR NON AFRICAN-AMERICAN 26.1 ml/min; POTASSIUM SERUM 3.6 mEq/L (3.5-5.1); TOTAL PROTEIN,SERUM 6.4 gm/dL (6.0-8.3)
[2017-08-22 06:40] LABS: % BASOPHILS 0.1 % (0.0-2.0); % EOSINOPHILS 4.2 % (0.0-5.0); % LYMPHOCYTES 19.9 % (20.0-50.0); % MONOCYTES 8.1 % (2.0-10.0); % NEUTROPHILS 67.7 % (40.0-80.0); EOSINOPHILE ABSOLUTE 0.2 Th/cmm (0.1-0.4); LYMPHOCYTE ABSOLUTE 0.9 Th/cmm (1.5-3.0); MEAN CELL VOLUME 85.7 fl (80-99); MEAN CORPUSCULAR HEMOGLOBIN 27.8 pg (27.0-31.0); MEAN CORPUSCULAR HGB CONC 32.5 pg (28.0-36.0); MEAN PLATELET VOLUME 7.4 fl; MONOCYTE ABSOLUTE 0.4 Th/cmm (0.3-1.0); PLATELET COUNT 161 Th/cmm (150-400); RED BLOOD COUNT 2.72 Mil/cmm (3.80-5.80); RED CELL DISTRIBUTION WIDTH 21.3 % (11.5-20.0); WHITE BLOOD COUNT 4.5 Th/cmm (4.8-10.8)
[2017-08-22 06:50] LABS: HEMATOCRIT 23.4 % (41.0-60); HEMOGLOBIN 7.6 gm/dL (12-16)
[2017-08-22] MEDS: Levothyroxine 0.025 Mg Tab PO SCH (07:30)
[2017-08-22] MEDS: INSULIN ASPART, RECOMBINANT 100 UNITS/ML SUBQ SCH ×4 (08:00→21:00)
[2017-08-22] MEDS: Albuterol/Ipratropium Neb 3 ML AERS HHN SCH ×3 (08:17→18:51)
[2017-08-22] MEDS: Haloperidol Lactate 5 mg/mL 1mL Vial IVP SCH ×3 (09:00→21:00)
[2017-08-22] MEDS: Insulin Detemir 100 units/mL 10mL Vial SUBQ SCH ×2 (09:00→17:51)
[2017-08-22] MEDS: Lactobacillus Rhamnosus GG 15 Billion CFU CAP.SPRINK PO SCH (10:28)
[2017-08-22] MEDS: FLUOCINONIDE 0.05% TP SCH ×2 (10:30→17:49)
[2017-08-22] MEDS: Venelex 60gm Tube TP SCH (10:31)
--- NOTE | 2017-08-22 10:57 | Infectious Disease Prog Note ---
Infectious Disease Subjective - Review of Systems Service Date: 08/22/17 Subjective: There is no new change, no fever. Infectious Disease Objective - Results Result Diagrams: 08/22/17 05:12 08/22/17 05:12 Recent Labs: Laboratory Last Values WBC 4.5 Th/cmm (4.8-10.8) L 08/22/17 05:12 RBC 2.72 Mil/cmm (3.80-5.80) L 08/22/17 05:12 Hgb 7.6 gm/dL (12-16) L* 08/22/17 05:12 Hct 23.4 % (41.0-60) L 08/22/17 05:12 MCV 85.7 fl (80-99) 08/22/17 05:12 MCH 27.8 pg (27.0-31.0) 08/22/17 05:12 MCHC Differential 32.5 pg (28.0-36.0) 08/22/17 05:12 RDW 21.3 % (11.5-20.0) H 08/22/17 05:12 Plt Count 161 Th/cmm (150-400) 08/22/17 05:12 MPV 7.4 fl 08/22/17 05:12 Neutrophils % 67.7 % (40.0-80.0) 08/22/17 05:12 Lymphocytes % 19.9 % (20.0-50.0) L 08/22/17 05:12 Monocytes % 8.1 % (2.0-10.0) 08/22/17 05:12 Eosinophils % 4.2 % (0.0-5.0) 08/22/17 05:12 Basophils % 0.1 % (0.0-2.0) 08/22/17 05:12 Sodium 138 mEq/L (136-145) 08/22/17 05:12 Potassium 3.6 mEq/L (3.5-5.1) 08/22/17 05:12 Chloride 109 mEq/L (98-107) H 08/22/17 05:12 Carbon Dioxide 20.4 mEq/L (21.0-31.0) L 08/22/17 05:12 Anion Gap 12.2 (7.0-16.0) 08/22/17 05:12 BUN 48 mg/dL (7-25) H 08/22/17 05:12 Creatinine 2.6 mg/dL (0.7-1.3) H 08/22/17 05:12 Est GFR ( Amer) 31.5 ml/min (>90) 08/22/17 05:12 Est GFR (Non-Af Amer) 26.1 ml/min 08/22/17 05:12 BUN/Creatinine Ratio 18.5 08/22/17 05:12 Glucose 171 mg/dL (70-105) H 08/22/17 05:12 POC Glucose 202 MG/DL (70 - 105) H 08/21/17 16:30 Hemoglobin A1c % 6.8 % (4.0-6.0) H 08/19/17 05:29 Calcium 8.4 mg/dL (8.6-10.3) L 08/22/17 05:12 Total Bilirubin 0.5 mg/dL (0.3-1.0) 08/22/17 05:12 AST 19 U/L (13-39) 08/22/17 05:12 ALT 18 U/L (7-52) 08/22/17 05:12 Alkaline Phosphatase 57 U/L (34-104) 08/22/17 05:12 Total Protein 6.4 gm/dL (6.0-8.3) 08/22/17 05:12 Albumin 3.3 gm/dL (4.2-5.5) L 08/22/17 05:12 Globulin 3.1 gm/dL 08/22/17 05:12 Albumin/Globulin Ratio 1.1 (1.0-1.8) 08/22/17 05:12 Stool Occult Blood POSITIVE (NEGATIVE) H 08/21/17 10:30 Vancomycin Trough 18.9 ug/mL (5-10) H 08/22/17 05:12 Random Vancomycin 23.2 ug/mL (5.0-40.0) 08/19/17 05:29 Blood Type O POSITIVE 08/19/17 08:00 Antibody Screen NEGATIVE 08/19/17 08:00 Crossmatch See Detail 08/19/17 08:00 - Physical Exam Vitals and I&O: Vital Signs Temp 97.4 F 08/22/17 04:00 Pulse 83 08/22/17 10:35 Resp 18 08/22/17 08:35 BP 110/59 08/22/17 10:35 Pulse Ox 94 08/22/17 08:18 Intake & Output 08/21/17 08/22/17 08/22/17 18:59 06:59 18:59 Intake Total 100 240 600 Output Total 800 Balance 100 240 -200 Weight (lbs) 89.584 kg 89.584 kg Intake: Intake, IV Amount 100 Piperacillin Sodium/ 100 Tazobact 3.375 gm In Sodium Chloride 0.9% 50 ml @ 100 mls/hr IV Q6HR MATHEW Rx#:[id number] Oral 240 600 Output: Urine 800 Other: # Voids 3 4 Stool Characteristics Soft Soft Weight Source Bedscale Bedscale Active Medications: Current Medications Acetaminophen (Tylenol) 650 mg PO Q4H PRN PRN Reason: Pain or Fever >101 Stop: 10/12/17 02:08 Last Admin: 08/22/17 02:59 Dose: 650 mg Acetaminophen/Hydrocodone Bitart ([place] 5mg/325mg) 1 tab PO Q4H PRN PRN Reason: mild pain Stop: 10/12/17 02:10 Last Admin: 08/22/17 01:01 Dose: 1 tab Al Hydrox/Mg Hydrox/Simethicone (Maalox) 30 ml PO Q6HR PRN PRN Reason: GI DISTRESS Stop: 10/12/17 02:10 Albuterol/Ipratropium (Duoneb Neb) 3 ml HHN [id number] MATHEW Stop: 10/12/17 06:59 Last Admin: 08/22/17 08:17 Dose: 3 ml Amiodarone HCl (Cordarone) 200 mg PO DAILY MATHEW Stop: 10/12/17 08:59 Last Admin: 08/22/17 10:29 Dose: 200 mg Atorvastatin Calcium (Lipitor) 20 mg PO HS [facility]W PRN Reason: Protocol Stop: 10/12/17 20:59 Last Admin: 08/21/17 21:05 Dose: Not Given Carvedilol (Coreg) 3.125 mg PO Q12HR MAT[facility]W Stop: 10/12/17 08:59 Last Admin: 08/22/17 10:33 Dose: Not Given [place] Oil/[place] Balsam/Trypsin (Venelex) 1 appl TP DAILY [facility]W Stop: 10/12/17 08:59 Last Admin: 08/22/17 10:31 Dose: Not Given Digoxin (Lanoxin) 0.125 mg PO HS [facility] Stop: 10/12/17 20:59 Last Admin: 08/21/17 21:05 Dose: Not Given Donepezil HCl (Aricept) 5 mg PO HS [facility] Stop: 10/12/17 20:59 Last Admin: 08/21/17 21:05 Dose: Not Given Dutasteride (Avodart) 0.5 mg PO DAILY [facility] PRN Reason: Protocol Stop: 10/12/17 08:59 Last Admin: 08/22/17 10:28 Dose: 0.5 mg Epoetin Errol (Epogen) 10,000 units SUBQ MoWeFr [facility] Stop: 10/14/17 14:59 Last Admin: 08/19/17 17:00 Dose: 10,000 units Ferrous Sulfate (Iron) 325 mg PO TID [facility] Stop: 10/21/17 13:59 Fluocinonide (Fluocinonide 60 Ml) 2 appl TP BID [facility] Stop: 10/12/17 08:59 Last Admin: 08/22/17 10:30 Dose: 2 appl Haloperidol Lactate (Haldol) 2 mg IVP TID [facility] Stop: 10/18/17 08:59 Last Admin: 08/22/17 09:00 Dose: Not Given Haloperidol Lactate (Haldol) 2 mg IVP Q6HR PRN PRN Reason: Agitation Stop: 10/18/17 00:00 Ferric Sodium Gluconate Complex 125 mg/ Sodium Chloride 110 mls @ 100 mls/hr IV Q24HR [facility] Stop: 08/23/17 12:59 Last Admin: 08/21/17 12:52 Dose: 100 mls/hr Piperacillin Sod/Tazobactam (Sod 3.375 gm/ Sodium Chloride) 50 mls @ 100 mls/ hr IV Q6HR [facility] Stop: 10/14/17 11:59 Last Admin: 08/22/17 06:14 Dose: Not Given Vancomycin HCl 1 gm/ Sodium (Chloride) 250 mls @ 165 mls/hr IV Q48H [facility] Stop: 10/19/17 09:59 Last Admin: 08/20/17 09:58 Dose: 165 mls/hr Insulin Aspart (Novolog) 0 units SUBQ ACHS [facility] PRN Reason: Protocol Stop: 10/12/17 07:29 Last Admin: 08/22/17 08:00 Dose: Not Given Insulin Detemir (Levemir Insulin) 15 units SUBQ BID [facility]W PRN Reason: Protocol Stop: 10/12/17 08:59 Last Admin: 08/22/17 09:00 Dose: Not Given Lactobacillus Rhamnosus (Culturelle 15b) 1 each PO DAILY [facility] Stop: 10/12/17 08:59 Last Admin: 08/22/17 10:28 Dose: 1 each Levothyroxine Sodium (Synthroid) 0.025 mg PO QDAC [facility] Stop: 10/12/17 07:29 Last Admin: 08/22/17 07:30 Dose: 0.025 mg Lisinopril (Zestril) 2.5 mg PO DAILY [facility] Stop: 10/12/17 08:59 Last Admin: 08/21/17 09:13 Dose: Not Given Magnesium Hydroxide (Milk Of Magnesia) 30 ml PO PRN PRN Reason: Constipation Stop: 10/12/17 02:10 Miscellaneous (Probiotic Screen) 1 ea PRN PRN PRN Reason: PROTOCOL Stop: 10/18/17 10:34 Miscellaneous (Vancomycin Iv Per Pharmacy) 1 ea MC PRN [facility] Stop: 10/18/17 13:59 Nabumetone (Relafen) 750 mg PO BID [facility] Stop: 10/12/17 08:59 Last Admin: 08/22/17 09:00 Dose: Not Given Nitroglycerin (Nitrostat) 0.4 mg SL Q5MIN PRN PRN Reason: Chest Pain Stop: 10/12/17 02:10 Quetiapine Fumarate (Seroquel) 25 mg PO BID [facility]W PRN Reason: Protocol Stop: 10/14/17 08:59 Last Admin: 08/22/17 10:28 Dose: 25 mg Rivaroxaban (Xarelto) 15 mg PO DAILY [facility] Stop: 10/12/17 08:59 Last Admin: 08/22/17 10:27 Dose: 15 mg Spironolactone (Aldactone) 25 mg PO DAILY [facility] Stop: 10/12/17 08:59 Last Admin: 08/22/17 10:38 Dose: Not Given Tamsulosin HCl (Flomax) 0.4 mg PO DAILY [facility] Stop: 10/12/17 08:59 Last Admin: 08/22/17 10:28 Dose: 0.4 mg Valsartan (Diovan) 20 mg PO DAILY [facility] Stop: 10/12/17 08:59 Last Admin: 08/22/17 10:35 Dose: Not Given General: no acute distress, well developed, well nourished HEENT: atraumatic, normocephalic, PERRLA, EOMI Neck: supple, no thyromegaly Cardiovascular: S1S2, regular Lungs: clear to auscultation bilaterally, clear to percussion Abdomen: soft, no tender, no distended Extremities: other (bilaateral ), no cyanosis, no clubbing, no edema Neurological: awake, alert, oriented Skin: other (bilateral leg ulcers.) Infectious Disease Assmt/Plan - Assessment Assessment: 1. Cellulitis of both legs. With open nonhealing complicated wound. Cellulitis of left foot. 2. Left forearm wound. No need of antibiotic for this indication. 3. Diabetes mellitus type 2. 4. Hypertension. 5. Hyperlipidemia. - Plan Plan: Continue the same treatment. Continue vancomyocin IV and wound care. Blood transfusion. Nutritional Asmnt/Malnutr-PDOC - Dietary Evaluation Malnutrition Findings (Please click <Entered> for more info): Nutritional Asmnt/Malnutrition Start: 08/13/17 11: 40 Text: Status: Cancelled Freq: Document 08/13/17 11:41 RODO (Rec: 08/13/17 11:45 RODO [id number]) Nutritional Asmnt/Malnutrition Patient General Information Nutritional Screening Consult Diagnosis Bilateral LE wound Pertinent Medical Hx/Surgical Hx no PMH as of 08/13 @ 1000 Subjective Information PT asleep in bed at time of visit Current Diet Order/ Nutrition Support CCHO Pertinent Medications maalox, lipiotr, Fe, lasix, novolog, synthroid, vancomycin , KCl Pertinent Labs 08/13: Na 139, K 5.4, Cl 109, Co2 23.2, BUN 52, Cr 2.1, Ca 8 .8, glucose 148 Nutritional Hx/Data Height 1.83 m Height (Calculated Centimeters) 182.9 Current Weight (lbs) 74.843 kg Weight (Calculated Kilograms) 74.8 Weight (Calculated Grams) 97361.7 Body Mass Index (BMI) 22.4 Weight Status Approriate GI Symptoms GI Symptoms None Last BM none noted Cultural/Ethnic/Amish Belief unknown Usual diet at home unknown Skin Integrity/Comment: stacey score 18 Estimated Nutritional Goals BEE in Kcals: Using Current wt Calories/Kcals/Kg 28-33kcals/kg Kcals Calculated 2100-2475kcals/day Protein: Using Current wt Protein g/k.2g/kg Protein Calculated 90g/day Fluid: ml per MD Nutritional Problem 1. Problem Problem No nutrition diagnosis at this time Intervention/Recommendation Comments Recommend continuing [facility] diet Expected Outcomes/Goals Expected Outcomes/Goals PO intake >75% of meals Nutritional Asmnt/Malnutrition Start: 08/15/17 15: 03 Text: Status: Complete Freq: Document 08/15/17 15:04 FARZAD (Rec: 08/15/17 15:12 LCLIBIA [id number]) Nutritional Asmnt/Malnutrition Patient General Information Nutritional Screening High Risk Diagnosis bilateral lower extremity wound Pertinent Medical Hx/Surgical Hx DM with nephropathy, CKD 3, HTN, BPH, hyperlipidemia, hypothy CHF Subjective Information Pt seen sitting on bed at time of visit, alert and talkative . Pt reported appptite fine. Per EMR, PO intake 100% of meals. Current Diet Order/ Nutrition Support [facility]-60gm Pertinent Medications ferric sodium gluconate, iron, novolog, levemir, culturelle, synthroid, piperacillin, seroquel Pertinent Labs 08/15 K 5.2, Cl 111, BUN 59, Cr 2.3, glucose 166, POC 172-212 5/ K 5.3, Cl 109, BUN 58, Cr 2.2 Nutritional Hx/Data Height 1.83 m Height (Calculated Centimeters) 182.9 Current Weight (lbs) 74.843 kg Weight (Calculated Kilograms) 74.8 Weight (Calculated Grams) 86043.7 [place] Body Weight 178 Body Mass Index (BMI) 22.4 Weight Status Approriate GI Symptoms GI Symptoms None Last BM none Difficult in: None Skin Integrity/Comment: skin tear ulcer to right/leftl ower leg, skin tear to left hand Current %PO Good (75-100%) Estimated Nutritional Goals BEE in Kcals: Using Current wt Calories/Kcals/Kg 25-30 Kcals Calculated 8297-3620 Protein: Using Current wt Protein g/k.8-1 monitor renal labs Protein Calculated 60-75 Fluid: ml 1875-2250ml (1ml/kcal) Nutritional Problem 1. Problem Problem altered nutrition related labs Etiology hx of DM, CKD 3 Signs/Symptoms: K 5.2-5.3, BUN 58-59, Cr 2.2-2 .3, glucose 166, POC 172-212 Malnutrition Alert Protein-Calorie Malnutrition N/A Is there a minimum of two criteria No selected? Query Text:Check all the applicable criteria. A minimum of two criteria are recommended for diagnosis of either severe or non-severe malnutrition. Intervention/Recommendation Comments 1. Recommend adding renal diet d/t elevated K, BUN/Cr. 2. Monitor PO intake, wt, labs and skin integrity 3. F/U as high risk in 2-3 days, 08/17-08/18 Expected Outcomes/Goals Expected Outcomes/Goals 1. PO intake to meet at least 75% of nutritional needs. 2. Wt stability, skin to heal, labs to approach WNL.
[2017-08-22] MEDS: Ferrous Sulfate 325 MG TAB PO SCH ×2 (13:17→21:00)
[2017-08-22] MEDS: Epoetin Alfa 20000 Units/mL Vial SUBQ SCH (17:35)
[2017-08-22] MEDS: Sodium Ferric Gluconate 125 MG in Sodium Chloride 0.9% 100 ML IV SCH (17:49)
[2017-08-22] MEDS: Atorvastatin Calcium 10 MG TAB PO SCH (21:00)
--- NOTE | 2017-08-23 00:05 | Progress Notes ---
DATE: 08/22/[address] Dee. Case was discussed with staff of the patient, reviewed records. The patient continues to be on grandiose. He does not remember seeing me, although I have seen him many times before. He continues to be unpredictable, impulsive, needing redirection. No side effects with the medication, no sedation, no nausea and he is compliant with the medication, no side effects. Thank you very much for allowing me to participate in the care of this most interesting gentleman. JOB# [id number]
[2017-08-23] MEDS: Haloperidol Lactate 5 mg/mL 1mL Vial IVP PRN ×2 (00:13→10:55)
--- NOTE | 2017-08-23 01:56 | Progress Notes ---
DATE: PATIENT'S IDENTIFICATION: A 72-year-old male. SUBJECTIVE: The patient seen and examined. The patient has a significant psych issues. At this time, the patient is not accepted to long-term acute care. Hemoglobin has dropped down to 7.6. The patient has no active bleeding. Stool for occult blood came out positive. The patient is currently on iron therapy. OBJECTIVE: VITAL SIGNS: Temperature 97.4, pulse 83, respiratory rate 18, and blood pressure 104/62. HEENT: No facial asymmetry. NECK: Supple. No JVD, no lymphadenopathy or thyromegaly. HEART: Both heart sounds are regular. CHEST: Lung equal in expansion. No wheezing, no crackles. ABDOMEN: Soft. No guarding, no rigidity. Bowel sounds are present. EXTREMITIES: Bilateral lower extremity, chronic venous stasis changes with open wound noted and significant amount of decreased erythema noted. CLINICAL IMPRESSION: 1. Bilateral lower extremity cellulitis with open wound. 2. Benign prostatic hypertrophy. 3. Psychotic disorder. 4. Hypertension. 5. Diabetes. 6. Degenerative joint disease. 7. Status post AICD placement. 8. Hypothyroidism. 9. Cardiac arrhythmia. 10. High risk for fall. PLAN: 1. Blood transfusion. 2. The patient refused to have further workup. 3. The patient will be discharged to lower level of care once we find the bed. The patient will receive IV antibiotic and further psych care as well at the lower level of care once the patient is cleared by the psychiatrist, which has been discussed with the patient and assigned nurse. JOB# [id number]
[2017-08-23] MEDS: Hydrocodone/APAP 5mg/325mg Tab PO PRN (02:00)
[2017-08-23 06:38] LABS: % LYMPHOCYTES 18.8 % (20.0-50.0); % MONOCYTES 9.1 % (2.0-10.0); % NEUTROPHILS 69.1 % (40.0-80.0); EOSINOPHILE ABSOLUTE 0.1 Th/cmm (0.1-0.4); HEMATOCRIT 27.4 % (41.0-60); HEMOGLOBIN 8.9 gm/dL (12-16); LYMPHOCYTE ABSOLUTE 0.9 Th/cmm (1.5-3.0); MEAN CELL VOLUME 87.6 fl (80-99); MEAN CORPUSCULAR HEMOGLOBIN 28.5 pg (27.0-31.0); MEAN CORPUSCULAR HGB CONC 32.5 pg (28.0-36.0); MEAN PLATELET VOLUME 7.3 fl; MONOCYTE ABSOLUTE 0.4 Th/cmm (0.3-1.0); NEUTROPHILE ABSOLUTE 3.2 Th/cmm (1.8-8.0); PLATELET COUNT 153 Th/cmm (150-400); RED BLOOD COUNT 3.13 Mil/cmm (3.80-5.80); RED CELL DISTRIBUTION WIDTH 19.2 % (11.5-20.0); WHITE BLOOD COUNT 4.6 Th/cmm (4.8-10.8)
[2017-08-23 07:03] LABS: ALBUMIN 3.1 gm/dL (4.2-5.5); ANION GAP 13.3 (7.0-16.0); BILIRUBIN,TOTAL 0.6 mg/dL (0.3-1.0); CALCIUM SERUM 8.5 mg/dL (8.6-10.3); CARBON DIOXIDE 20.7 mEq/L (21.0-31.0); CREATININE - SERUM 2.7 mg/dL (0.7-1.3); GFR AFRICAN-AMERICAN 30.2 ml/min (>90); TOTAL PROTEIN,SERUM 6.2 gm/dL (6.0-8.3)
[2017-08-23] MEDS: INSULIN ASPART, RECOMBINANT 100 UNITS/ML SUBQ SCH ×5 (07:30→22:38)
[2017-08-23] MEDS: Albuterol/Ipratropium Neb 3 ML AERS HHN SCH ×3 (07:59→19:16)
[2017-08-23] MEDS: Lactobacillus Rhamnosus GG 15 Billion CFU CAP.SPRINK PO SCH (09:09)
[2017-08-23] MEDS: Insulin Detemir 100 units/mL 10mL Vial SUBQ SCH ×2 (09:11→17:24)
[2017-08-23] MEDS: Haloperidol Lactate 5 mg/mL 1mL Vial IVP SCH ×3 (09:11→22:08)
[2017-08-23] MEDS: Ferrous Sulfate 325 MG TAB PO SCH ×3 (09:14→22:08)
[2017-08-23] MEDS: Levothyroxine 0.025 Mg Tab PO SCH (09:14)
[2017-08-23] MEDS: FLUOCINONIDE 0.05% TP SCH ×2 (10:00→17:25)
[2017-08-23] MEDS: Venelex 60gm Tube TP SCH (10:51)
--- NOTE | 2017-08-23 13:14 | Infectious Disease Prog Note ---
Infectious Disease Subjective - Review of Systems Service Date: 08/23/17 Subjective: There is no new change, no fever. Infectious Disease Objective - Results Result Diagrams: 08/23/17 05:35 08/23/17 05:35 Recent Labs: Laboratory Last Values WBC 4.6 Th/cmm (4.8-10.8) L 08/23/17 05:35 RBC 3.13 Mil/cmm (3.80-5.80) L 08/23/17 05:35 Hgb 8.9 gm/dL (12-16) L 08/23/17 05:35 Hct 27.4 % (41.0-60) L 08/23/17 05:35 MCV 87.6 fl (80-99) 08/23/17 05:35 MCH 28.5 pg (27.0-31.0) 08/23/17 05:35 MCHC Differential 32.5 pg (28.0-36.0) 08/23/17 05:35 RDW 19.2 % (11.5-20.0) 08/23/17 05:35 Plt Count 153 Th/cmm (150-400) 08/23/17 05:35 MPV 7.3 fl 08/23/17 05:35 Neutrophils % 69.1 % (40.0-80.0) 08/23/17 05:35 Lymphocytes % 18.8 % (20.0-50.0) L 08/23/17 05:35 Monocytes % 9.1 % (2.0-10.0) 08/23/17 05:35 Eosinophils % 3.0 % (0.0-5.0) 08/23/17 05:35 Basophils % 0.0 % (0.0-2.0) 08/23/17 05:35 Sodium 138 mEq/L (136-145) 08/23/17 05:35 Potassium 4.0 mEq/L (3.5-5.1) 08/23/17 05:35 Chloride 108 mEq/L (98-107) H 08/23/17 05:35 Carbon Dioxide 20.7 mEq/L (21.0-31.0) L 08/23/17 05:35 Anion Gap 13.3 (7.0-16.0) 08/23/17 05:35 BUN 48 mg/dL (7-25) H 08/23/17 05:35 Creatinine 2.7 mg/dL (0.7-1.3) H 08/23/17 05:35 Est GFR ( Amer) 30.2 ml/min (>90) 08/23/17 05:35 Est GFR (Non-Af Amer) 25.0 ml/min 08/23/17 05:35 BUN/Creatinine Ratio 17.8 08/23/17 05:35 Glucose 151 mg/dL (70-105) H 08/23/17 05:35 POC Glucose 208 MG/DL (70 - 105) H 08/23/17 11:37 Hemoglobin A1c % 6.8 % (4.0-6.0) H 08/19/17 05:29 Calcium 8.5 mg/dL (8.6-10.3) L 08/23/17 05:35 Total Bilirubin 0.6 mg/dL (0.3-1.0) 08/23/17 05:35 AST 20 U/L (13-39) 08/23/17 05:35 ALT 17 U/L (7-52) 08/23/17 05:35 Alkaline Phosphatase 57 U/L (34-104) 08/23/17 05:35 Total Protein 6.2 gm/dL (6.0-8.3) 08/23/17 05:35 Albumin 3.1 gm/dL (4.2-5.5) L 08/23/17 05:35 Globulin 3.1 gm/dL 08/23/17 05:35 Albumin/Globulin Ratio 1.0 (1.0-1.8) 08/23/17 05:35 Stool Occult Blood POSITIVE (NEGATIVE) H 08/21/17 10:30 Vancomycin Trough 18.9 ug/mL (5-10) H 08/22/17 05:12 Random Vancomycin 23.2 ug/mL (5.0-40.0) 08/19/17 05:29 Blood Type O POSITIVE 08/22/17 10:45 Antibody Screen NEGATIVE 08/22/17 10:45 Crossmatch See Detail 08/22/17 10:45 - Physical Exam Vitals and I&O: Vital Signs Temp 97.8 F 08/23/17 08:00 Pulse 77 08/23/17 10:51 Resp 18 08/23/17 08:00 BP 118/61 08/23/17 10:51 Pulse Ox 97 08/23/17 08:00 Intake & Output 08/22/17 08/23/17 08/23/17 18:59 06:59 18:59 Intake Total 1100 50 Output Total 1600 Balance -500 50 Weight (lbs) 89.358 kg 89.358 kg 89.358 kg Intake: Intake, IV Amount 50 Piperacillin Sodium/ 50 Tazobact 3.375 gm In Sodium Chloride 0.9% 50 ml @ 100 mls/hr IV Q6HR [facility] Rx#:[id number] Oral 600 Blood Product 500 Output: Urine 1600 Other: # Voids 4 # Bowel Movements 1 Stool Characteristics Soft Soft Soft Weight Source Bedscale Bedscale Bedscale Active Medications: Current Medications Acetaminophen (Tylenol) 650 mg PO Q4H PRN PRN Reason: Pain or Fever >101 Stop: 10/12/17 02:08 Last Admin: 08/22/17 02:59 Dose: 650 mg Acetaminophen/Hydrocodone Bitart ([place] 5mg/325mg) 1 tab PO Q4H PRN PRN Reason: mild pain Stop: 10/12/17 02:10 Last Admin: 08/23/17 02:00 Dose: 1 tab Al Hydrox/Mg Hydrox/Simethicone (Maalox) 30 ml PO Q6HR PRN PRN Reason: GI DISTRESS Stop: 10/12/17 02:10 Albuterol/Ipratropium (Duoneb Neb) 3 ml HHN [id number] [facility] Stop: 10/12/17 06:59 Last Admin: 08/23/17 07:59 Dose: 3 ml Amiodarone HCl (Cordarone) 200 mg PO DAILY [facility] Stop: 10/12/17 08:59 Last Admin: 08/23/17 09:09 Dose: 200 mg Atorvastatin Calcium (Lipitor) 20 mg PO HS [facility] PRN Reason: Protocol Stop: 10/12/17 20:59 Last Admin: 08/22/17 21:00 Dose: Not Given Carvedilol (Coreg) 3.125 mg PO Q12HR [facility] Stop: 10/12/17 08:59 Last Admin: 08/23/17 09:12 Dose: Not Given [place] Oil/[place] Balsam/Trypsin (Venelex) 1 appl TP DAILY [facility] Stop: 10/12/17 08:59 Last Admin: 08/23/17 10:51 Dose: Not Given Digoxin (Lanoxin) 0.125 mg PO HS [facility] Stop: 10/12/17 20:59 Last Admin: 08/22/17 21:00 Dose: Not Given Donepezil HCl (Aricept) 5 mg PO HS [facility] Stop: 10/12/17 20:59 Last Admin: 08/22/17 21:00 Dose: Not Given Dutasteride (Avodart) 0.5 mg PO DAILY [facility] PRN Reason: Protocol Stop: 10/12/17 08:59 Last Admin: 08/23/17 09:16 Dose: 0.5 mg Ferrous Sulfate (Iron) 325 mg PO TID [facility] Stop: 10/21/17 13:59 Last Admin: 08/23/17 09:14 Dose: 325 mg Fluocinonide (Fluocinonide 60 Ml) 2 appl TP BID [facility] Stop: 10/12/17 08:59 Last Admin: 08/23/17 10:00 Dose: 2 appl Haloperidol Lactate (Haldol) 2 mg IVP TID [facility] Stop: 10/18/17 08:59 Last Admin: 08/23/17 09:11 Dose: Not Given Haloperidol Lactate (Haldol) 2 mg IVP Q6HR PRN PRN Reason: Agitation Stop: 10/18/17 00:00 Last Admin: 08/23/17 10:55 Dose: 2 mg Piperacillin Sod/Tazobactam (Sod 3.375 gm/ Sodium Chloride) 50 mls @ 100 mls/ hr IV Q6HR [facility] Stop: 10/14/17 11:59 Last Admin: 08/22/17 22:00 Dose: 100 mls/hr Vancomycin HCl 1 gm/ Sodium (Chloride) 250 mls @ 165 mls/hr IV Q48H [facility] Stop: 10/22/17 09:59 Last Admin: 08/23/17 08:58 Dose: 165 mls/hr Insulin Aspart (Novolog) 0 units SUBQ ACHS [facility] PRN Reason: Protocol Stop: 10/12/17 07:29 Last Admin: 08/23/17 11:40 Dose: Not Given Insulin Detemir (Levemir Insulin) 15 units SUBQ BID [facility] PRN Reason: Protocol Stop: 10/12/17 08:59 Last Admin: 08/23/17 09:11 Dose: Not Given Lactobacillus Rhamnosus (Culturelle 15b) 1 each PO DAILY [facility] Stop: 10/12/17 08:59 Last Admin: 08/23/17 09:09 Dose: 1 each Levothyroxine Sodium (Synthroid) 0.025 mg PO QDAC [facility] Stop: 10/12/17 07:29 Last Admin: 08/23/17 09:14 Dose: 0.025 mg Lisinopril (Zestril) 2.5 mg PO DAILY [facility] Stop: 10/12/17 08:59 Last Admin: 08/23/17 10:51 Dose: Not Given Magnesium Hydroxide (Milk Of Magnesia) 30 ml PO HS PRN PRN Reason: Constipation Stop: 10/12/17 02:10 Miscellaneous (Probiotic Screen) 1 ea PRN PRN PRN Reason: PROTOCOL Stop: 10/18/17 10:34 Miscellaneous (Vancomycin Iv Per Pharmacy) 1 ea PRN [facility] Stop: 10/18/17 13:59 Nabumetone (Relafen) 750 mg PO BID [facility] Stop: 10/12/17 08:59 Last Admin: 08/23/17 09:10 Dose: Not Given Nitroglycerin (Nitrostat) 0.4 mg SL Q5MIN PRN PRN Reason: Chest Pain Stop: 10/12/17 02:10 Quetiapine Fumarate (Seroquel) 25 mg PO BID [facility] PRN Reason: Protocol Stop: 10/14/17 08:59 Last Admin: 08/23/17 09:08 Dose: 25 mg Rivaroxaban (Xarelto) 15 mg PO DAILY [facility] Stop: 10/12/17 08:59 Last Admin: 08/23/17 09:08 Dose: 15 mg Spironolactone (Aldactone) 25 mg PO DAILY [facility] Stop: 10/12/17 08:59 Last Admin: 08/23/17 09:10 Dose: Not Given Tamsulosin HCl (Flomax) 0.4 mg PO DAILY [facility] Stop: 10/12/17 08:59 Last Admin: 08/23/17 09:09 Dose: 0.4 mg Valsartan (Diovan) 20 mg PO DAILY [facility] Stop: 10/12/17 08:59 Last Admin: 08/23/17 09:10 Dose: Not Given General: no acute distress, well developed, well nourished HEENT: normocephalic, PERRLA, EOMI Neck: supple, no thyromegaly Cardiovascular: S1S2, regular Lungs: clear to auscultation bilaterally, clear to percussion Abdomen: soft, bowel sounds, no tender, no distended Extremities: other (bilateral leg ulcers with surrounding erythema.), no cyanosis, no clubbing, no edema Infectious Disease Assmt/Plan - Assessment Assessment: 1. Cellulitis of both legs. With open nonhealing complicated wound. Cellulitis of left foot. 2. Left forearm wound. No need of antibiotic for this indication. 3. Diabetes mellitus type 2. 4. Hypertension. 5. Hyperlipidemia. 6. CKD 4 - Plan Plan: Continue the same treatment. Continue vancomyocin IV and wound care. Blood transfusion. Nutritional Asmnt/Malnutr-PDOC - Dietary Evaluation Malnutrition Findings (Please click <Entered> for more info): Nutritional Asmnt/Malnutrition Start: 08/13/17 11: 40 Text: Status: Cancelled Freq: Document 08/13/17 11:41 RODO (Rec: 08/13/17 11:45 RODO SPEEDY FN) Nutritional Asmnt/Malnutrition Patient General Information Nutritional Screening Consult Diagnosis Bilateral LE wound Pertinent Medical Hx/Surgical Hx no PMH as of 08/13 @ 1000 Subjective Information PT asleep in bed at time of visit Current Diet Order/ Nutrition Support [facility] Pertinent Medications maalox, lipiotr, Fe, lasix, novolog, synthroid, vancomycin , KCl Pertinent Labs 08/13: Na 139, K 5.4, Cl 109, Co2 23.2, BUN 52, Cr 2.1, Ca 8 .8, glucose 148 Nutritional Hx/Data Height 1.83 m Height (Calculated Centimeters) 182.9 Current Weight (lbs) 74.843 kg Weight (Calculated Kilograms) 74.8 Weight (Calculated Grams) 28670.7 Body Mass Index (BMI) 22.4 Weight Status Approriate GI Symptoms GI Symptoms None Last BM none noted Cultural/Ethnic/Episcopal Belief unknown Usual diet at home unknown Skin Integrity/Comment: stacey score 18 Estimated Nutritional Goals BEE in Kcals: Using Current wt Calories/Kcals/Kg 28-33kcals/kg Kcals Calculated 2100-2475kcals/day Protein: Using Current wt Protein g/k.2g/kg Protein Calculated 90g/day Fluid: ml per MD Nutritional Problem 1. Problem Problem No nutrition diagnosis at this time Intervention/Recommendation Comments Recommend continuing [facility] diet Expected Outcomes/Goals Expected Outcomes/Goals PO intake >75% of meals Nutritional Asmnt/Malnutrition Start: 08/15/17 15: 03 Text: Status: Complete Freq: Document 08/15/17 15:04 VIVIANG (Rec: 08/15/17 15:12 LCHENG [email or web address]) Nutritional Asmnt/Malnutrition Patient General Information Nutritional Screening High Risk Diagnosis bilateral lower extremity wound Pertinent Medical Hx/Surgical Hx DM with nephropathy, CKD 3, HTN, BPH, hyperlipidemia, hypothy CHF Subjective Information Pt seen sitting on bed at time of visit, alert and talkative . Pt reported appptite fine. Per EMR, PO intake 100% of meals. Current Diet Order/ Nutrition Support [facility]-60gm Pertinent Medications ferric sodium gluconate, iron, novolog, levemir, culturelle, synthroid, piperacillin, seroquel Pertinent Labs 08/15 K 5.2, Cl 111, BUN 59, Cr 2.3, glucose 166, POC 172-212 / K 5.3, Cl 109, BUN 58, Cr 2.2 Nutritional Hx/Data Height 1.83 m Height (Calculated Centimeters) 182.9 Current Weight (lbs) 74.843 kg Weight (Calculated Kilograms) 74.8 Weight (Calculated Grams) 40390.7 [place] Body Weight 178 Body Mass Index (BMI) 22.4 Weight Status Approriate GI Symptoms GI Symptoms None Last BM none Difficult in: None Skin Integrity/Comment: skin tear ulcer to right/leftl ower leg, skin tear to left hand Current %PO Good (75-100%) Estimated Nutritional Goals BEE in Kcals: Using Current wt Calories/Kcals/Kg 25-30 Kcals Calculated 0298-7044 Protein: Using Current wt Protein g/k.8-1 monitor renal labs Protein Calculated 60-75 Fluid: ml 1875-2250ml (1ml/kcal) Nutritional Problem 1. Problem Problem altered nutrition related labs Etiology hx of DM, CKD 3 Signs/Symptoms: K 5.2-5.3, BUN 58-59, Cr 2.2-2 .3, glucose 166, POC 172-212 Malnutrition Alert Protein-Calorie Malnutrition N/A Is there a minimum of two criteria No selected? Query Text:Check all the applicable criteria. A minimum of two criteria are recommended for diagnosis of either severe or non-severe malnutrition. Intervention/Recommendation Comments 1. Recommend adding renal diet d/t elevated K, BUN/Cr. 2. Monitor PO intake, wt, labs and skin integrity 3. F/U as high risk in 2-3 days, 08/17-08/18 Expected Outcomes/Goals Expected Outcomes/Goals 1. PO intake to meet at least 75% of nutritional needs. 2. Wt stability, skin to heal, labs to approach WNL.
[2017-08-23] MEDS: Atorvastatin Calcium 10 MG TAB PO SCH (22:06)
--- NOTE | 2017-08-23 22:13 | Progress Notes ---
DATE: 08/23/2017 The patient was very pleasant. Today, he was smiling, somewhat grandiose. He has been having episodes of irritability, but in general responding well to redirection. He is sleeping better, eating better, and he is anxious to be discharged. He is on Haldol 2 mg 3 times a day and with no side effects, no sedation, no nausea noted from the symptoms. He has been on Seroquel 25 mg twice a day. Thank you very much for allowing me to participate in the care of this most interesting gentleman. JOB# [id number]
--- NOTE | 2017-08-24 00:16 | Progress Notes ---
DATE: 08/23/2017 IDENTIFICATION: The patient is a 72-year-old male. SUBJECTIVE: The patient seen and examined. The patient is lying in the bed. The patient continues to refuse medication at times. The patient has been on followed by the quantitative consultant. I did have a discussion with the patient's daughter, Ashlie, about the patient's condition, diagnosis and treatment plan. I have answered all her questions as well. OBJECTIVE: VITAL SIGNS: The patient remained afebrile. Temperature 98, pulse 77, respiratory rate 18, blood pressure 118/60. HEENT: Poor dentition. NECK: Supple, no JVD. HEART: Regular. Positive S3. CHEST: Equal in expansion, no expiratory wheezing. ABDOMEN: Soft. Bowel sounds are present. EXTREMITIES: Bilateral chronic venostasis changes with open wound noted with significant decrease of erythema noted. AVAILABLE DIAGNOSTIC DATA: White count of 4.6, hemoglobin 8.9, platelet count of 153, BUN and creatinine is 40 and 2.7. Glucoscan is reviewed. Albumin of 3.1. CLINICAL IMPRESSION: 1. Bilateral lower extremity cellulitis with chronic venous stasis changes clinically improving. 2. Anemia, status post blood transfusion. 3. Diabetes mellitus. 4. Psychotic disorder. 5. Dementia. 6. Degenerative joint disease. 7. Status post AICD placement. 8. Congestive heart failure history. 9. Degenerative joint disease. 10. Debility. PLAN: The patient can receive same treatment including antibiotic and wound care at lower level of care though patient says need substantive psychiatric treatment, which is managed by psychiatrist. The patient can be transferred to Geropsych Unit. The patient is stable for the Geropsych Unit transfer. The patient can receive IV vancomycin. The patient will continue to receive continuation of the diabetes medication, antihypertensive medicine as well as General nursing care. We transfer this patient to Med/Surg level now considering patient's hemoglobin is stable. JOB# [id number]
[2017-08-24 06:20] LABS: % BASOPHILS 0.1 % (0.0-2.0); % EOSINOPHILS 4.5 % (0.0-5.0); % LYMPHOCYTES 22.7 % (20.0-50.0); % MONOCYTES 8.9 % (2.0-10.0); % NEUTROPHILS 63.8 % (40.0-80.0); EOSINOPHILE ABSOLUTE 0.2 Th/cmm (0.1-0.4); HEMATOCRIT 27.1 % (41.0-60); HEMOGLOBIN 8.8 gm/dL (12-16); MEAN CELL VOLUME 88.7 fl (80-99); MEAN CORPUSCULAR HEMOGLOBIN 28.8 pg (27.0-31.0); MEAN CORPUSCULAR HGB CONC 32.5 pg (28.0-36.0); MEAN PLATELET VOLUME 7.5 fl; MONOCYTE ABSOLUTE 0.4 Th/cmm (0.3-1.0); PLATELET COUNT 139 Th/cmm (150-400); RED BLOOD COUNT 3.05 Mil/cmm (3.80-5.80); RED CELL DISTRIBUTION WIDTH 21.6 % (11.5-20.0); WHITE BLOOD COUNT 4.6 Th/cmm (4.8-10.8)
[2017-08-24 06:39] LABS: ALBUMIN 3.1 gm/dL (4.2-5.5); ANION GAP 10.4 (7.0-16.0); BILIRUBIN,TOTAL 0.4 mg/dL (0.3-1.0); CALCIUM SERUM 8.4 mg/dL (8.6-10.3); CARBON DIOXIDE 21.3 mEq/L (21.0-31.0); CREATININE - SERUM 2.5 mg/dL (0.7-1.3); GFR NON AFRICAN-AMERICAN 27.3 ml/min; POTASSIUM SERUM 3.7 mEq/L (3.5-5.1); TOTAL PROTEIN,SERUM 6.1 gm/dL (6.0-8.3)
[2017-08-24] MEDS: Levothyroxine 0.025 Mg Tab PO SCH (07:01)
[2017-08-24] MEDS: Albuterol/Ipratropium Neb 3 ML AERS HHN SCH ×3 (07:11→19:11)
[2017-08-24] MEDS: FLUOCINONIDE 0.05% TP SCH ×2 (09:34→16:03)
[2017-08-24] MEDS: Ferrous Sulfate 325 MG TAB PO SCH ×3 (09:35→21:03)
[2017-08-24] MEDS: Lactobacillus Rhamnosus GG 15 Billion CFU CAP.SPRINK PO SCH (09:35)
[2017-08-24] MEDS: Venelex 60gm Tube TP SCH (09:39)
[2017-08-24] MEDS: Insulin Detemir 100 units/mL 10mL Vial SUBQ SCH ×2 (09:40→17:15)
[2017-08-24] MEDS: INSULIN ASPART, RECOMBINANT 100 UNITS/ML SUBQ SCH ×4 (09:40→21:06)
[2017-08-24] MEDS: Haloperidol Lactate 5 mg/mL 1mL Vial IVP SCH ×3 (09:40→22:20)
--- NOTE | 2017-08-24 13:48 | Infectious Disease Prog Note ---
Infectious Disease Subjective - Review of Systems Service Date: 08/24/17 Subjective: There is no new change, no fever. Infectious Disease Objective - Results Result Diagrams: 08/24/17 05:40 08/24/17 05:40 Recent Labs: Laboratory Last Values WBC 4.6 Th/cmm (4.8-10.8) L 08/24/17 05:40 RBC 3.05 Mil/cmm (3.80-5.80) L 08/24/17 05:40 Hgb 8.8 gm/dL (12-16) L 08/24/17 05:40 Hct 27.1 % (41.0-60) L 08/24/17 05:40 MCV 88.7 fl (80-99) 08/24/17 05:40 MCH 28.8 pg (27.0-31.0) 08/24/17 05:40 MCHC Differential 32.5 pg (28.0-36.0) 08/24/17 05:40 RDW 21.6 % (11.5-20.0) H 08/24/17 05:40 Plt Count 139 Th/cmm (150-400) L 08/24/17 05:40 MPV 7.5 fl 08/24/17 05:40 Neutrophils % 63.8 % (40.0-80.0) 08/24/17 05:40 Lymphocytes % 22.7 % (20.0-50.0) 08/24/17 05:40 Monocytes % 8.9 % (2.0-10.0) 08/24/17 05:40 Eosinophils % 4.5 % (0.0-5.0) 08/24/17 05:40 Basophils % 0.1 % (0.0-2.0) 08/24/17 05:40 Sodium 136 mEq/L (136-145) 08/24/17 05:40 Potassium 3.7 mEq/L (3.5-5.1) 08/24/17 05:40 Chloride 108 mEq/L (98-107) H 08/24/17 05:40 Carbon Dioxide 21.3 mEq/L (21.0-31.0) 08/24/17 05:40 Anion Gap 10.4 (7.0-16.0) 08/24/17 05:40 BUN 52 mg/dL (7-25) H 08/24/17 05:40 Creatinine 2.5 mg/dL (0.7-1.3) H 08/24/17 05:40 Est GFR ( Amer) 33.0 ml/min (>90) 08/24/17 05:40 Est GFR (Non-Af Amer) 27.3 ml/min 08/24/17 05:40 BUN/Creatinine Ratio 20.8 08/24/17 05:40 Glucose 160 mg/dL (70-105) H 08/24/17 05:40 POC Glucose 186 MG/DL (70 - 105) H 08/24/17 11:34 Hemoglobin A1c % 6.8 % (4.0-6.0) H 08/19/17 05:29 Calcium 8.4 mg/dL (8.6-10.3) L 08/24/17 05:40 Total Bilirubin 0.4 mg/dL (0.3-1.0) 08/24/17 05:40 AST 17 U/L (13-39) 08/24/17 05:40 ALT 17 U/L (7-52) 08/24/17 05:40 Alkaline Phosphatase 64 U/L (34-104) 08/24/17 05:40 Total Protein 6.1 gm/dL (6.0-8.3) 08/24/17 05:40 Albumin 3.1 gm/dL (4.2-5.5) L 08/24/17 05:40 Globulin 3.0 gm/dL 08/24/17 05:40 Albumin/Globulin Ratio 1.0 (1.0-1.8) 08/24/17 05:40 Stool Occult Blood POSITIVE (NEGATIVE) H 08/21/17 10:30 Vancomycin Trough 18.9 ug/mL (5-10) H 08/22/17 05:12 Random Vancomycin 23.2 ug/mL (5.0-40.0) 08/19/17 05:29 Blood Type O POSITIVE 08/22/17 10:45 Antibody Screen NEGATIVE 08/22/17 10:45 Crossmatch See Detail 08/22/17 10:45 - Physical Exam Vitals and I&O: Vital Signs Temp 97 F 08/24/17 12:00 Pulse 71 08/24/17 12:00 Resp 20 08/24/17 12:00 BP 109/63 05/16/18 12:00 Pulse Ox 100 08/24/17 12:00 Intake & Output 08/23/17 08/24/17 08/24/17 18:59 06:59 18:59 Intake Total 550 300 Balance 550 300 Weight (lbs) 89.358 kg 89.358 kg Intake: Intake, IV Amount 50 Piperacillin Sodium/ 50 Tazobact 3.375 gm In Sodium Chloride 0.9% 50 ml @ 100 mls/hr IV Q6HR [facility] Rx#:[id number] Oral 500 300 Other: # Voids 3 2 # Bowel Movements 1 Stool Characteristics Soft Soft Weight Source Bedscale Bedscale Active Medications: Current Medications Acetaminophen (Tylenol) 650 mg PO Q4H PRN PRN Reason: Pain or Fever >101 Stop: 10/12/17 02:08 Last Admin: 08/22/17 02:59 Dose: 650 mg Acetaminophen/Hydrocodone Bitart (Pearson 5mg/325mg) 1 tab PO Q4H PRN PRN Reason: mild pain Stop: 10/12/17 02:10 Last Admin: 08/23/17 02:00 Dose: 1 tab Al Hydrox/Mg Hydrox/Simethicone (Maalox) 30 ml PO Q6HR PRN PRN Reason: GI DISTRESS Stop: 10/12/17 02:10 Albuterol/Ipratropium (Duoneb Neb) 3 ml HHN [id number] [facility] Stop: 10/12/17 06:59 Last Admin: 08/24/17 07:11 Dose: 3 ml Amiodarone HCl (Cordarone) 200 mg PO DAILY [facility] Stop: 10/12/17 08:59 Last Admin: 08/24/17 09:40 Dose: Not Given Atorvastatin Calcium (Lipitor) 20 mg PO HS [facility]W PRN Reason: Protocol Stop: 10/12/17 20:59 Last Admin: 08/23/17 22:06 Dose: 20 mg Carvedilol (Coreg) 3.125 mg PO Q12HR [facility] Stop: 10/12/17 08:59 Last Admin: 08/24/17 09:40 Dose: Not Given Vaughn Oil/Australian Balsam/Trypsin (Venelex) 1 appl TP DAILY [facility] Stop: 10/12/17 08:59 Last Admin: 08/24/17 09:39 Dose: Not Given Digoxin (Lanoxin) 0.125 mg PO HS [facility] Stop: 10/12/17 20:59 Last Admin: 08/23/17 22:07 Dose: Not Given Donepezil HCl (Aricept) 5 mg PO HS [facility] Stop: 10/12/17 20:59 Last Admin: 08/23/17 22:08 Dose: 5 mg Dutasteride (Avodart) 0.5 mg PO DAILY [facility] PRN Reason: Protocol Stop: 10/12/17 08:59 Last Admin: 08/24/17 09:35 Dose: 0.5 mg Ferrous Sulfate (Iron) 325 mg PO TID [facility] Stop: 10/21/17 13:59 Last Admin: 08/24/17 13:12 Dose: 325 mg Fluocinonide (Fluocinonide 60 Ml) 2 appl TP BID [facility] Stop: 10/12/17 08:59 Last Admin: 08/24/17 09:34 Dose: 2 appl Haloperidol Lactate (Haldol) 2 mg IVP TID [facility] Stop: 10/18/17 08:59 Last Admin: 08/24/17 13:38 Dose: Not Given Haloperidol Lactate (Haldol) 2 mg IVP Q6HR PRN PRN Reason: Agitation Stop: 10/18/17 00:00 Last Admin: 08/23/17 10:55 Dose: 2 mg Piperacillin Sod/Tazobactam (Sod 3.375 gm/ Sodium Chloride) 50 mls @ 100 mls/ hr IV Q6HR [facility] Stop: 10/14/17 11:59 Last Admin: 08/24/17 11:28 Dose: 100 mls/hr Vancomycin HCl 1 gm/ Sodium (Chloride) 250 mls @ 165 mls/hr IV Q48H [facility] Stop: 10/22/17 09:59 Last Admin: 08/23/17 08:58 Dose: 165 mls/hr Insulin Aspart (Novolog) 0 units SUBQ ACHS [facility] PRN Reason: Protocol Stop: 10/12/17 07:29 Last Admin: 08/24/17 12:16 Dose: Not Given Insulin Detemir (Levemir Insulin) 15 units SUBQ BID [facility] PRN Reason: Protocol Stop: 10/12/17 08:59 Last Admin: 08/24/17 09:40 Dose: Not Given Lactobacillus Rhamnosus (Culturelle 15b) 1 each PO DAILY [facility] Stop: 10/12/17 08:59 Last Admin: 08/24/17 09:35 Dose: 1 each Levothyroxine Sodium (Synthroid) 0.025 mg PO QDAC [facility] Stop: 10/12/17 07:29 Last Admin: 08/24/17 07:01 Dose: 0.025 mg Lisinopril (Zestril) 2.5 mg PO DAILY [facility] Stop: 10/12/17 08:59 Last Admin: 08/24/17 09:39 Dose: Not Given Magnesium Hydroxide (Milk Of Magnesia) 30 ml PO HS PRN PRN Reason: Constipation Stop: 10/12/17 02:10 Miscellaneous (Probiotic Screen) 1 ea PRN PRN PRN Reason: PROTOCOL Stop: 10/18/17 10:34 Miscellaneous (Vancomycin Iv Per Pharmacy) 1 ea PRN [facility] Stop: 10/18/17 13:59 Nabumetone (Relafen) 750 mg PO BID [facility] Stop: 10/12/17 08:59 Last Admin: 08/24/17 09:36 Dose: 750 mg Nitroglycerin (Nitrostat) 0.4 mg SL Q5MIN PRN PRN Reason: Chest Pain Stop: 10/12/17 02:10 Quetiapine Fumarate (Seroquel) 25 mg PO BID [facility]W PRN Reason: Protocol Stop: 10/14/17 08:59 Last Admin: 08/24/17 09:35 Dose: 25 mg Rivaroxaban (Xarelto) 15 mg PO DAILY [facility] Stop: 10/12/17 08:59 Last Admin: 08/24/17 09:36 Dose: 15 mg Spironolactone (Aldactone) 25 mg PO DAILY [facility] Stop: 10/12/17 08:59 Last Admin: 08/24/17 09:35 Dose: 25 mg Tamsulosin HCl (Flomax) 0.4 mg PO DAILY [facility] Stop: 10/12/17 08:59 Last Admin: 08/24/17 09:35 Dose: 0.4 mg Valsartan (Diovan) 20 mg PO DAILY [facility] Stop: 10/12/17 08:59 Last Admin: 08/24/17 09:41 Dose: Not Given General: no acute distress, well developed, well nourished HEENT: atraumatic, normocephalic, PERRLA, EOMI, moist mucous membrane Neck: supple, thyromegaly Cardiovascular: S1S2, regular Lungs: clear to auscultation bilaterally, clear to percussion Abdomen: soft, no tender, no distended Extremities: other (bilateral leg ulcers.), no cyanosis, no clubbing, no edema Neurological: awake, alert, oriented Infectious Disease Assmt/Plan - Assessment Assessment: 1. Cellulitis of both legs. With open nonhealing complicated wound. Cellulitis of left foot. 2. Left forearm wound. No need of antibiotic for this indication. 3. Diabetes mellitus type 2. 4. Hypertension. 5. Hyperlipidemia. 6. CKD 4 - Plan Plan: Continue the same treatment. Continue vancomyocin IV and wound care. Nutritional Asmnt/Malnutr-PDOC - Dietary Evaluation Malnutrition Findings (Please click <Entered> for more info): Nutritional Asmnt/Malnutrition Start: 08/13/17 11: 40 Text: Status: Cancelled Freq: Document 08/13/17 11:41 RODO (Rec: 08/13/17 11:45 RODO RUFF FN) Nutritional Asmnt/Malnutrition Patient General Information Nutritional Screening Consult Diagnosis Bilateral LE wound Pertinent Medical Hx/Surgical Hx no PMH as of 08/13 @ 1000 Subjective Information PT asleep in bed at time of visit Current Diet Order/ Nutrition Support [facility] Pertinent Medications maalox, lipiotr, Fe, lasix, novolog, synthroid, vancomycin , KCl Pertinent Labs 08/13: Na 139, K 5.4, Cl 109, Co2 23.2, BUN 52, Cr 2.1, Ca 8 .8, glucose 148 Nutritional Hx/Data Height 1.83 m Height (Calculated Centimeters) 182.9 Current Weight (lbs) 74.843 kg Weight (Calculated Kilograms) 74.8 Weight (Calculated Grams) 50285.7 Body Mass Index (BMI) 22.4 Weight Status Approriate GI Symptoms GI Symptoms None Last BM none noted Cultural/Ethnic/Latter-Day Belief unknown Usual diet at home unknown Skin Integrity/Comment: stacey score 18 Estimated Nutritional Goals BEE in Kcals: Using Current wt Calories/Kcals/Kg 28-33kcals/kg Kcals Calculated 2100-2475kcals/day Protein: Using Current wt Protein g/k.2g/kg Protein Calculated 90g/day Fluid: ml per MD Nutritional Problem 1. Problem Problem No nutrition diagnosis at this time Intervention/Recommendation Comments Recommend continuing [facility] diet Expected Outcomes/Goals Expected Outcomes/Goals PO intake >75% of meals Nutritional Asmnt/Malnutrition Start: 08/15/17 15: 03 Text: Status: Complete Freq: Document 08/15/17 15:04 VIVIANG (Rec: 08/15/17 15:12 [email or web address] [email or web address]) Nutritional Asmnt/Malnutrition Patient General Information Nutritional Screening High Risk Diagnosis bilateral lower extremity wound Pertinent Medical Hx/Surgical Hx DM with nephropathy, CKD 3, HTN, BPH, hyperlipidemia, hypothy CHF Subjective Information Pt seen sitting on bed at time of visit, alert and talkative . Pt reported appptite fine. Per EMR, PO intake 100% of meals. Current Diet Order/ Nutrition Support [facility]-60gm Pertinent Medications ferric sodium gluconate, iron, novolog, levemir, culturelle, synthroid, piperacillin, seroquel Pertinent Labs 08/15 K 5.2, Cl 111, BUN 59, Cr 2.3, glucose 166, POC 172-212 / K 5.3, Cl 109, BUN 58, Cr 2.2 Nutritional Hx/Data Height 1.83 m Height (Calculated Centimeters) 182.9 Current Weight (lbs) 74.843 kg Weight (Calculated Kilograms) 74.8 Weight (Calculated Grams) 78902.7 [place] Body Weight 178 Body Mass Index (BMI) 22.4 Weight Status Approriate GI Symptoms GI Symptoms None Last BM none Difficult in: None Skin Integrity/Comment: skin tear ulcer to right/leftl ower leg, skin tear to left hand Current %PO Good (75-100%) Estimated Nutritional Goals BEE in Kcals: Using Current wt Calories/Kcals/Kg 25-30 Kcals Calculated 6338-5714 Protein: Using Current wt Protein g/k.8-1 monitor renal labs Protein Calculated 60-75 Fluid: ml 1875-2250ml (1ml/kcal) Nutritional Problem 1. Problem Problem altered nutrition related labs Etiology hx of DM, CKD 3 Signs/Symptoms: K 5.2-5.3, BUN 58-59, Cr 2.2-2 .3, glucose 166, POC 172-212 Malnutrition Alert Protein-Calorie Malnutrition N/A Is there a minimum of two criteria No selected? Query Text:Check all the applicable criteria. A minimum of two criteria are recommended for diagnosis of either severe or non-severe malnutrition. Intervention/Recommendation Comments 1. Recommend adding renal diet d/t elevated K, BUN/Cr. 2. Monitor PO intake, wt, labs and skin integrity 3. F/U as high risk in 2-3 days, 08/17-08/18 Expected Outcomes/Goals Expected Outcomes/Goals 1. PO intake to meet at least 75% of nutritional needs. 2. Wt stability, skin to heal, labs to approach WNL.
[2017-08-24] MEDS: Atorvastatin Calcium 10 MG TAB PO SCH (20:56)
--- NOTE | 2017-08-24 23:00 | Progress Notes ---
DATE: PATIENT'S ID: A 72-year-old male. SUBJECTIVE: The patient seen and examined. The patient is lying in the bed, continues to refuse medication at times. The patient has been followed by the psychiatrist. The social service and case management are in the process to consider the patient at this time. The patient remained hemodynamically stable, no signs or symptoms of active bleeding. OBJECTIVE: VITAL SIGNS: Temperature 97.1, pulse is 81, respiratory rate 18, blood pressure 130/60. HEENT: Poor dentition. NECK: Supple, no JVD. HEART: Regular. CHEST AND LUNGS: Equal in expansion, no wheezing, and no crackles. ABDOMEN: Soft. No guarding, rigidity. Bowel sounds present. No hepatosplenomegaly. EXTREMITIES: Chronic venous stasis changes with open wound noted with significant decrease erythema noted. AVAILABLE DIAGNOSTIC DATA: White count of 4.6, hemoglobin 8.8, platelet count 139, BUN and creatinine is 52 and 2.5. Glucoscan is reviewed. Potassium 3.7. CLINICAL IMPRESSION: 1. Normocytic normochromic anemia. 2. Bilateral lower extremity cellulitis and open wound. 3. Psychotic disorder exacerbation. 4. Diabetes mellitus. 5. Hypertension. 6. Status post AICD placement. 7. Dementia. 8. DJD. 9. Debility. 10. Congestive heart failure. PLAN: 1. Continue IV antibiotic. 2. Wound care. 3. Iron therapy. 4. Procrit. 5. Diabetes management. 6. Psychotic medication. 7. Fall precaution. 8. General nursing care. 9. Discharge planning to [facility] under process. Care plan reviewed and discussed with staff. JOB# [id number]
[2017-08-25] MEDS: INSULIN ASPART, RECOMBINANT 100 UNITS/ML SUBQ SCH (06:37)
[2017-08-25] MEDS: Levothyroxine 0.025 Mg Tab PO SCH (06:37)
[2017-08-25] MEDS: Albuterol/Ipratropium Neb 3 ML AERS HHN SCH ×2 (07:11→12:04)
[2017-08-25] MEDS: Lactobacillus Rhamnosus GG 15 Billion CFU CAP.SPRINK PO SCH (09:56)
[2017-08-25] MEDS: Ferrous Sulfate 325 MG TAB PO SCH (09:56)
[2017-08-25] MEDS: Venelex 60gm Tube TP SCH (09:58)
[2017-08-25] MEDS: FLUOCINONIDE 0.05% TP SCH (10:00)
[2017-08-25] MEDS: Haloperidol Lactate 5 mg/mL 1mL Vial IVP SCH (10:00)
[2017-08-25] MEDS: Insulin Detemir 100 units/mL 10mL Vial SUBQ SCH (10:01)
--- NOTE | 2017-08-25 23:47 | Progress Notes ---
DATE: Chart reviewed and the patient interviewed. Also discussed the patient's condition with the staff and reviewed records and labs. The patient seems to be slightly calmer than before, but the patient still have symptoms of elvis and is still hyperverbal and has episodes of irritability and agitation, but seems to be less than before. The patient also is easier to follow directions. The patient also seems to be more compliant with taking his medications with no side effects of medications. ASSESSMENT: The patient is still agitated and bit less than before and the patient seems to be less manic. TREATMENT PLAN: Continue same medications. Also, the patient seems to be going to be transferred to [facility] and will follow the patient there. JOB# [id number]
--- NOTE | 2017-08-26 00:01 | Progress Notes ---
DATE: PATIENT'S IDENTIFICATION: A 72-year-old male. SUBJECTIVE: The patient seen and examined. The patient is refusing most of his medications. The patient currently needs psych medication in order to control his behavior. The patient has worsening psychotic behavior with dementia. The patient remained hemodynamically stable. OBJECTIVE: VITAL SIGNS: Temperature 97.7, pulse 78, respiratory rate 18, blood pressure 111/76. HEENT: No facial asymmetry. NECK: Supple. No JVD. HEART: Regular. CHEST AND LUNGS: Equal in expansion, no wheezing, no crackles. ABDOMEN: Soft. No guarding, no rigidity. Bowel sounds are present. No palpable mass. EXTREMITIES: Bilateral chronic venous stasis changes with open wound noted. NEUROLOGIC: Alert, awake, follows commands. AVAILABLE DIAGNOSTICS: None for my review. CLINICAL IMPRESSION: 1. Psychiatric disorder exacerbation, needs psych medication adjustment. 2. Bilateral lower extremity cellulitis with open wound. 3. Diabetes mellitus. 4. Status post automatic implantable cardioverter defibrillator placement. 5. Congestive heart failure. 6. Hypertension. 7. Degenerative joint disease. PLAN: 1. Psych medication. 2. Psych followup. 3. Antibiotic. Once the patient start taking it. 4. Monitor blood sugar, blood pressure. 5. General nursing care. 6. Follow lab. 7. The patient can be downgraded to lower level of care once psych behavior is well controlled. JOB# [id number]
== END 2017-08-25 13:05 | DRG 603 ==
LOC: MSI 22:00 → TELE 08-17 22:48 → MSI 08-21 06:53
PROVIDERS: ADMIT Internal Medicine; ATTEND Internal Medicine
PROC: 30233N1 Transfusion of Nonautologous Red Blood Cells into Peripheral Vein, Percutaneous Approach (ICD-10-PCS; principal; 2017-08-19)
DX: L03.116 Cellulitis of left lower limb (principal); I13.0 Hypertensive heart and chronic kidney disease with heart failure and stage 1 through stage 4 chronic kidney disease, or unspecified chronic kidney disease; N17.9 Acute kidney failure, unspecified; N18.4 Chronic kidney disease, stage 4 (severe); I42.9 Cardiomyopathy, unspecified; L03.115 Cellulitis of right lower limb; I87.8 Other specified disorders of veins; E87.5 Hyperkalemia; E03.9 Hypothyroidism, unspecified; M19.90 Unspecified osteoarthritis, unspecified site; D64.9 Anemia, unspecified; F29 Unspecified psychosis not due to a substance or known physiological condition; N40.0 Benign prostatic hyperplasia without lower urinary tract symptoms; E11.21 Type 2 diabetes mellitus with diabetic nephropathy; I48.2 Chronic atrial fibrillation; I50.9 Heart failure, unspecified; E78.5 Hyperlipidemia, unspecified; S81.802A Unspecified open wound, left lower leg, initial encounter; S81.801A Unspecified open wound, right lower leg, initial encounter; R53.81 Other malaise; E11.22 Type 2 diabetes mellitus with diabetic chronic kidney disease; Z95.810 Presence of automatic (implantable) cardiac defibrillator; Z88.8 Allergy status to other drugs, medicaments and biological substances; Z88.6 Allergy status to analgesic agent; Z79.4 Long term (current) use of insulin; Z91.19 Patient's noncompliance with other medical treatment and regimen; Z91.81 History of falling
CPT/HCPCS: 36415-UA; 80048-TC; 80053-TC; 80202-TC; 82270-TC; 82948-90; 83036-90; 85025-TC; 86850-TC; 86900-TC; 86901-TC; 86922-TC; 87070-90; 94760; A4217; J0885; J1630; J1815; J2543; J2916; J3370; J7040; P9016; Z7610

== ENCOUNTER 2018-05-17 16:28 | Inpatient (IN) | payer MEDICARE, OTHER ==
--- NOTE | 2018-05-17 16:55 | ED Physician Chart ---
ED Chief Complaint/HPI - Patient Information Date Seen:: 05/17/18 Time Seen:: 16:30 Chief Complaint:: Agitation History of Present Illness:: onset x 3 days of agitation; no report of trauma, LOC, ALOC, AMS, H/As, S/T, neck pain, C/P, SOB, abd. pain, A/N/V/D/C, fever, chills, SIs, or urinary s/s Allergies:: Allergies Allergy/AdvReac Type Severity Reaction Status Date / Time metoprolol Allergy Unknown Verified 08/09/17 15:36 pregabalin [From Lyrica] Allergy Unknown Verified 08/09/17 15:36 Historian:: Patient, EMS Review:: Nurse's Note Reviewed, Old Chart Reviewed, EMS run form Reviewed ED Review of Systems - Review of Systems General/Constitutional: No fever, No chills, No weight loss, No weakness, No diaphoresis, No edema, No loss of appetite Skin: No skin lesions, No rash, No bruising Head: No headache, No light-headedness Eyes: No loss of vision, No pain, No diplopia ENT: No earache, No nasal drainage, No sore throat, No tinnitus Neck: No neck pain, No swelling, No thyromegaly, No stiffness, No mass noted Cardio Vascular: No chest pain, No palpitations, No PND, No orthopnea, No edema Pulmonary: No SOB, No cough, No sputum, No wheezing GI: No nausea, No vomiting, No diarrhea, No pain, No melena, No hematochezia, No constipation, No hematemesis G/U: No dysuria, No frequency, No hematuria, No nacturia Musculoskeletal: No bone or joint pain, No back pain, No muscle pain Endocrine: No polyuria, No polydipsia Psychiatric: Prior psych history, Depression, Anxiety, No suicidal ideation, No homicidal ideation, No auditory hallucination, No visual hallucination Hematopoietic: No bruising, No lymphadenopathy Allergic/Immuno: No urticaria, No angioedema Neurological: No syncope, No focal symptoms, No weakness, No paresthesia, No headache, No seizure, No dizziness, Confusion, No vertigo ED Past Medical History - Past Medical History Obtainable: Yes Past Medical History: HTN, DM, Dyslipidemia, Thyroid disorder, Dementia Family History: Diabetes Melitus, HTN Social History: Non Smoker, No Alcohol, No Drug Use, Single, Care Facility Surgical History: None Psychiatricy History: Depression, Bipolar, Dementia Medication: Reviewed Family Medical History - Family Member Maternal History Unknown: Yes ED Physical Exam - Physical Examination General/Constitutional: Awake, Well-developed, well-nourished, Alert, No distress, GCS 15, Non-toxic appearing, Ambulatory Head: Atraumatic Eyes: Lids, conjuctiva normal, PERRL, EOMI Skin: Nl inspection, No rash, No skin lesions, No ecchymosis, Well hydrated, No lymphadenopathy ENMT: External ears, nose nl, TM canals nl, Nasal exam nl, Lips, teeth, gums nl , Oropharynx nl, Tonsils nl Neck: Nontender, Full ROM w/o pain, No JVD, No nuchal rigidity, No bruit, No mass, No stridor Respiratory: Nl effort/Exclusion, Clear to Auscultation, No Wheeze/Rhonchi/Rales Cardio Vascular: RRR, No murmur, gallop, rubs, NL S1 S2, Carotid/Femoral/Distal pulses equal bilaterally GI: No tenderness/rebounding/guarding, No organomegaly, No hernia, Normal BS's, Nondistended, No mass/bruits, No McBurney tenderness : No CVA tenderness Extremities: No tenderness or effusion, Full ROM, normal strength in all extremities, No edema, Normal digits & nails Neuro/Psych: Alert/oriented, DTR's symmetric, Normal sensory exam, Normal motor strength, Judgement/insight normal, Mood normal, Normal gait, No focal deficits Other Neuro/Psych comments:: + Psychomotor Agitation; no SIs; Mood/Affect: Labile Misc: Normal back, No paraspinal tenderness ED Labs/Radiology/EKG Results - Lab Results Comments:: Reviewed - EKG Interpretations Rate & Rhythm: NSR Comments:: non-specific st-t changes ED Septic Shock - . Is Septic Shock (SBP<90, OR Lactate>4 mmol\L) present?: No ED Reassessment (Disposition) - Reassessment Reassessment Condition:: Improved - Diagnosis Diagnosis:: Agitation; Dementia; Medical Clearance; UTI; Bipolar Disorder - Aftercare/Follow up Instructions Aftercare/Follow-Up Instructions:: Counseled pt regarding lab results/diagnosis & need follow up, Counseled pt & family regarding lab results/diagnosis & need follow up - Patient Disposition Discharge/Transfer:: Acute Care w/in this hosp Admitted to:: [facility] Condition at Disposition:: Stable, Improved
[2018-05-17 17:11] LABS: % BASOPHILS 0.5 % (0.0-2.0); % EOSINOPHILS 1.8 % (0.0-5.0); % LYMPHOCYTES 19.4 % (20.0-50.0); % MONOCYTES 4.6 % (2.0-10.0); % NEUTROPHILS 73.7 % (40.0-80.0); EOSINOPHILE ABSOLUTE 0.1 Th/cmm (0.1-0.4); HEMATOCRIT 25.4 % (41.0-60); HEMOGLOBIN 8.1 gm/dL (12-16); LYMPHOCYTE ABSOLUTE 1.3 Th/cmm (1.5-3.0); MEAN CELL VOLUME 75.1 fl (80-99); MEAN PLATELET VOLUME 6.4 fl; MONOCYTE ABSOLUTE 0.3 Th/cmm (0.3-1.0); NEUTROPHILE ABSOLUTE 4.9 Th/cmm (1.8-8.0); PLATELET COUNT 282 Th/cmm (150-400); RED BLOOD COUNT 3.38 Mil/cmm (3.80-5.80); WHITE BLOOD COUNT 6.6 Th/cmm (4.8-10.8)
[2018-05-17 17:29] LABS: ACETAMINOPHEN < 10.0 ug/mL (10.0-30.0); ALBUMIN 3.8 gm/dL (4.2-5.5); ALKALINE PHOSPHATASE 45 U/L (34-104); ANION GAP 15.1 (7.0-16.0); BILIRUBIN,TOTAL 0.5 mg/dL (0.3-1.0); BUN - UREA NITROGEN 63 mg/dL (7-25); CALCIUM SERUM 9.3 mg/dL (8.6-10.3); CARBON DIOXIDE 26.3 mEq/L (21.0-31.0); CHLORIDE 104 mEq/L (98-107); CHOLESTEROL 67 mg/dL (<200); CREATININE - SERUM 2.8 mg/dL (0.7-1.3); GLUCOSE 62 mg/dL (70-105); HDL -HIGH DENSITY LIPOPROTEIN 27 mg/dL (23-92); POTASSIUM SERUM 3.4 mEq/L (3.5-5.1); SALICYLATES (ASPIRIN) < 25.0 mg/L (30.0-100.0); SGOT 17 U/L (13-39); SGPT/ALT 10 U/L (7-52); SODIUM SERUM 142 mEq/L (136-145); TOTAL PROTEIN,SERUM 7.7 gm/dL (6.0-8.3); TRIGLYCERIDES 110 mg/dL (<150)
[2018-05-17 17:36] LABS: URINE SOURCE CLEAN C
[2018-05-17 22:18] VITALS: BP 110/54
[2018-05-17 22:25] LABS: URINE BILIRUBIN NEGATIVE (NEGATIVE); URINE BLOOD NEGATIVE (NEGATIVE); URINE CLARITY HAZY (CLEAR); URINE COLOR OTHER; URINE GLUCOSE (UA) NEGATIVE (NEGATIVE); URINE KETONE NEGATIVE (NEGATIVE); URINE MICROSCOPIC INDICATED? YES; URINE PROTEIN NEGATIVE (NEGATIVE)
[2018-05-17 22:26] LABS: URINE LEUKOCYTE ESTERASE MODERATE (NEGATIVE); URINE NITRATE POSITIVE (NEGATIVE); URINE RBC 0-2 /hpf (0-5); URINE UROBILINOGEN 0.2 E.U./dL (0.2 - 1.0)
[2018-05-17 22:27] LABS: URINE BACTERIA FEW /hpf (NONE SEEN); URINE EPITHELIAL CELLS FEW /lpf (FEW)
[2018-05-17] MEDS: Atorvastatin Calcium 10 MG TAB PO SCH (23:40)
[2018-05-18] MEDS ORDERED: Sulfamethoxazole/TMP 800/160mg Tab PO SCH (01:15)
[2018-05-18] MEDS ORDERED: Sulfamethoxazole/TMP 800/160mg Tab ONE (01:32)
[2018-05-18] MEDS ORDERED: Sulfamethoxazole/TMP 800/160mg Tab PO ONE (01:50)
[2018-05-18] MEDS: Levothyroxine 0.112 Mg Tab PO SCH (07:06)
[2018-05-18] MEDS: Sulfamethoxazole/TMP 800/160mg Tab PO SCH ×2 (08:35→16:30)
[2018-05-18] MEDS: Vitamin B Complex w/Vitamin C Tab PO SCH (08:35)
[2018-05-18] MEDS ORDERED: Non-Formulary Item 1 EA (Docusate Sodium [Docusate Sodium] 100 MG) PO SCH (09:00)
[2018-05-18] MEDS ORDERED: INSULIN HUMAN ISOPHANE (NPH) 100 UNITS/ML SUBQ SCH (09:00)
--- NOTE | 2018-05-18 12:01 | History & Physical ---
ADMIT DATE: 05/17/2018 PATIENT'S IDENTIFICATION: A 73-year-old male. REQUESTING PHYSICIAN: Dr. Gisela Dee. HISTORY OF PRESENT ILLNESS: A 73-year-old [place] male brought into the Emergency Room for increasing agitation for the last 3 days without any trauma, loss of consciousness, or any subject to injury. The patient was evaluated by Emergency Room MD. The patient was advised to be admitted at [facility] for further management. PAST MEDICAL HISTORY: Remarkable for: 1. Diabetes. 2. Chronic kidney disease, stage 3. 3. Hypertension. 4. BPH. 5. Hyperlipidemia. 6. Hypothyroidism. 7. History of congestive heart failure. 8. Chronic venous stasis changes on both lower extremities. MEDICATIONS: At the time of transfer has been reviewed and reconciled appropriately. ALLERGIES: The patient is not allergic to medications. SOCIAL HISTORY: The patient resides in a shelter. No history of smoking cigarette, alcohol, or drug use. FAMILY MEDICAL HISTORY: Remarkable for hypertension and diabetes mellitus. REVIEW OF SYSTEMS: The patient denies any headache, blurred vision, double vision, dysphagia, odynophagia, runny nose, stuffy nose, fever, chills, cough, chest pain, shortness of breath, palpitation, dizziness, nausea, vomiting, diarrhea, dysuria, hematuria, hematochezia, melena. No seizure or syncopal episode. PHYSICAL EXAMINATION: GENERAL: Alert, awake, oriented, lying in the bed without any acute distress. VITAL SIGNS: Temperature 97, pulse is 64, respiratory rate 18, blood pressure 136/88. HEENT: Normocephalic, atraumatic. Extraocular muscles intact. Tongue was pink and coated. Absent upper and lower dentition with no facial asymmetry. NECK: Supple, no JVD. No hepatojugular reflex. No lymphadenopathy, thyromegaly, or carotid bruit. HEART: Both heart sounds are regular. Positive S3 noted. CHEST AND LUNGS: Equal in expansion with no expiratory wheezing. Palpable AICD in the left subclavian area noted. ABDOMEN: Soft. No guarding, no rigidity. Bowel sounds present. No palpable mass. EXTREMITIES: Has a chronic venous stasis changes on the both lower extremities. Peripheral pulses are +1. unable to palpate. NEUROLOGIC: Alert, awake, oriented, following commands. 2-12 cranial nerves are intact. Power in upper or lower extremities are 5-. Sensation to touch intact. Babinskis in both toes are going down. No cerebral sign. AVAILABLE DIAGNOSTIC DATA: Performed in the Emergency Room, troponin of 0.05. TSH of 3.24, nitrite being positive, leukocyte esterase moderate, WBCs with 6-10, rbc's 0-10. CLINICAL IMPRESSIONS: 1. Cardiomyopathy, status post biventricular defibrillator placement. 2. Congestive heart failure. 3. Hyperlipidemia. 4. Hypertension. 5. Coronary artery disease. 6. Diabetes mellitus. 7. Degenerative joint disease. 8. Benign prostatic hypertrophy. 9. Psychotic disorder exacerbation. 10. Chronic venous stasis changes on the both lower extremities. 11. Chronic kidney disease, type 3. 12. High risk for fall. PLAN: 1. Psychotic evaluation and management deferred to psychiatrist. 2. Appropriate home medicine reconciliation for diabetes, hypertension, hyperlipidemia, as well as congestive heart failure and coronary artery disease. Continue to provide symptomatic therapy for symptoms as well as general nursing care, nutritional support and fall precautions as well. Diabetes will be managed as well and we will continue to follow this patient during the stay in the hospital. I sincerely thank you, Dr. Gisela Dee for giving me the opportunity to participate in patient of yours. JOB# [id number]
[2018-05-18] MEDS: Ferrous Sulfate 325 MG TAB PO SCH (16:30)
[2018-05-18] MEDS: Aspirin 81mg Chewable Tab PO SCH (16:30)
[2018-05-18] MEDS ORDERED: PROTEIN HYDR PO SCH (17:00)
[2018-05-18] MEDS ORDERED: FIBER PO SCH (17:00)
[2018-05-18] MEDS ORDERED: [UNRECOGNIZED DRUG - OTHER] PO SCH (17:00)
[2018-05-18] MEDS ORDERED: AMINO ACIDS PO SCH (17:00)
[2018-05-18] MEDS: Atorvastatin Calcium 10 MG TAB PO SCH (20:28)
[2018-05-18] MEDS ORDERED: Atorvastatin Calcium 10 MG TAB PO SCH (21:00)
[2018-05-19] MEDS: Levothyroxine 0.112 Mg Tab PO SCH (06:30)
[2018-05-19] MEDS: Sulfamethoxazole/TMP 800/160mg Tab PO SCH ×2 (08:48→16:43)
[2018-05-19] MEDS: Vitamin B Complex w/Vitamin C Tab PO SCH (08:49)
--- NOTE | 2018-05-19 11:25 | Progress Notes ---
DATE: 05/17/2018 PATIENT'S ID: A 73-year-old male. SUBJECTIVE: The patient seen and examined. The patient is lying in the bed, unable to get meaningful history from the patient. OBJECTIVE: VITAL SIGNS: Temperature 97.8, pulse 85, respiratory rate 18, blood pressure 117/56. Glucoscan is reviewed. Fasting blood sugar 185 today. HEENT: No facial asymmetry. NECK: Supple, no JVD. HEART: Regular. CHEST AND LUNGS: Equal in expansion, no expiratory wheezing. ABDOMEN: Soft. No guarding or rigidity. Bowel sounds present. No palpable mass. EXTREMITIES: No edema. CLINICAL IMPRESSION: 1. Diabetes. 2. Cardiomyopathy. 3. AICD placement. 4. Hyperlipidemia. 5. Coronary artery disease. 6. Diabetes. 7. Degenerative joint disease. 8. Psychotic disorder. 9. Chronic kidney disease, type 3. 10. High risk for fall. PLAN: 1. Monitor blood sugar. 2. Psych medicine. 3. Psych followup. 4. Chronic disease management. 5. Symptoms management. 6. Medication management. 7. Follow lab. 8. We will continue to follow this patient during the stay in the hospital. JOB# [id number]
[2018-05-19] MEDS: NOVOLOG SS SUBQ SCH ×2 (11:42→16:41)
[2018-05-19] MEDS: Epoetin Alfa 20000 Units/mL Vial SUBQ SCH (16:00)
[2018-05-19] MEDS: INSULIN HUMAN ISOPHANE (NPH) 100 UNITS/ML SUBQ SCH (16:41)
[2018-05-19] MEDS: Ferrous Sulfate 325 MG TAB PO SCH (16:42)
[2018-05-19] MEDS: Aspirin 81mg Chewable Tab PO SCH (16:43)
[2018-05-19] MEDS ORDERED: Probiotic Screen MC PRN (17:15)
--- NOTE | 2018-05-19 19:13 | Psychiatric Evaluation ---
DATE OF SERVICE: INITIAL EVALUATION AND MENTAL STATUS EXAM PATIENT'S AGE: 73. SEX: Male. PHYSICIAN: Dr. Dee. CHIEF COMPLAINT: Severe agitation and irritability. HISTORY OF PRESENT ILLNESS: The patient is a 73-year-old male, who was transferred to the hospital from [facility]. The patient was having sexual inappropriate commands and behavior while in the hospital and he was not able to follow any of staff instructions there. The patient also was verbally abusive to female staff. He also was refusing to take any psychotropic medications. Since the patient was not able to follow or to be monitored, the patient was transferred to the hospital. Chart reviewed and the patient interviewed. The patient is exhibiting manic behavior and grandiose delusions. The patient said that he can speak 5 languages and also was talking about his being "a war hero." The patient also was talking about himself with high self-esteem and also during the discussion, the patient was having a pressured speech and was very difficult to interrupt him. PAST PSYCHIATRIC HISTORY: The patient has history of hospitalization for manic episode and treatment of bipolar disorder and last hospitalization was in November of last year in [facility] under my care as well as Dr. Tilley. PAST MEDICAL HISTORY: Hypothyroidism, atrial fib, anemia, and hypertension. SOCIAL HISTORY: The patient said he is and his is 78-year-old. He also said that he has two children that are adult. He recently moved to [facility]. The patient denies alcohol or street drug use. 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 ALLERGIES: No known allergies. MENTAL STATUS EXAMINATION: The patient appears his stated age. Going around the unit on a wheelchair. Pressured speech. Thought processes are circumstantial and tangential with occasional flight of ideas. The patient denies any auditory or visual hallucinations, but slightly suspicious. The patient denies any suicidal or homicidal ideations. The patient is alert and oriented to time, place, person, and situation. Intact immediate, recent and remote memories. Fair insight and fair judgment. He seems to be of average intelligence based on his verbal ability. ASSESSMENT: PRIMARY DIAGNOSIS: Bipolar disorder, manic episode, severe, with psychotic features. MEDICAL DIAGNOSES: 1. Hypertension. 2. Anemia. 3. Atrial fibrillation. 4. Hypothyroidism. TREATMENT PLAN: Continue to monitor his behavior and his condition closely. Also, start individual as well as milieu psychotherapy. Also, we will adjust psychotropic medications and follow up closely. [facility]# [id number]
[2018-05-19] MEDS: Atorvastatin Calcium 10 MG TAB PO SCH (20:41)
[2018-05-20] MEDS: NOVOLOG SS SUBQ SCH ×2 (06:34→16:45)
[2018-05-20] MEDS: Levothyroxine 0.112 Mg Tab PO SCH (06:35)
[2018-05-20] MEDS: INSULIN HUMAN ISOPHANE (NPH) 100 UNITS/ML SUBQ SCH ×2 (09:08→16:44)
[2018-05-20] MEDS: Sulfamethoxazole/TMP 800/160mg Tab PO SCH ×2 (09:19→16:24)
[2018-05-20] MEDS: Lactobacillus Rhamnosus GG 15 Billion CFU CAP.SPRINK PO SCH (09:19)
[2018-05-20] MEDS: Vitamin B Complex w/Vitamin C Tab PO SCH (09:21)
--- NOTE | 2018-05-20 16:19 | Progress Notes ---
DATE: 05/17/2018 SUBJECTIVE: Case was discussed with staff of the patient, reviewed records. Covering for Dr. Dee. This 73-year-old male who was admitted on 05/17/2018, transferred from [facility]. The patient was having sexually inappropriate behavior while at the hospital. He was not able to follow staff directions or instructions. The patient also was verbally abusive to female staff, refusing to take any psychotropic medication. The patient was manicky, grandiose, delusional that he can spell, he can speaks 5 languages and are talking about him being . The patient was talking about himself with a high self-esteemed. The patient was having a pressured speech and very difficult to interrupt. The patient with a history of being hospitalized for manic behavior in the past. The patient continues to be labile, continues to have pressured speech. He is on Abilify 10 mg at bedtime with no side effects, no sedation, no nausea, no extrapyramidal symptoms and he may need to be on Depakote; however, and will continue outpatient group therapy, milieu therapy, adjust medication as needed. JOB# [id number]
[2018-05-20] MEDS: Aspirin 81mg Chewable Tab PO SCH (16:23)
[2018-05-20] MEDS: Ferrous Sulfate 325 MG TAB PO SCH (16:23)
--- NOTE | 2018-05-20 17:34 | Progress Notes ---
DATE: SUBJECTIVE: Chart reviewed and the patient interviewed. Also discussed the patient's condition with the staff and reviewed the records and labs. The patient is still in irritable and angry mood and is still exhibiting manic behavior. The patient is rambling and thought processes are circumstantial and tangential with flight of ideas. The patient also is still easily agitated and easily irritable. Otherwise, the patient is compliant with taking his medications with no side effects of medications. ASSESSMENT: The patient is still psychotic. TREATMENT PLAN: Continue to monitor his behavior and his condition. Continue to adjust psychotropic medications and work on behavioral modification. JOB# [id number]
[2018-05-20] MEDS: Atorvastatin Calcium 10 MG TAB PO SCH (20:18)
[2018-05-21] MEDS: NOVOLOG SS SUBQ SCH ×2 (06:49→16:40)
[2018-05-21] MEDS: Levothyroxine 0.112 Mg Tab PO SCH (06:49)
[2018-05-21] MEDS: INSULIN HUMAN ISOPHANE (NPH) 100 UNITS/ML SUBQ SCH ×2 (08:41→16:50)
[2018-05-21] MEDS: Lactobacillus Rhamnosus GG 15 Billion CFU CAP.SPRINK PO SCH (08:48)
[2018-05-21] MEDS: Sulfamethoxazole/TMP 800/160mg Tab PO SCH ×2 (08:48→16:29)
[2018-05-21] MEDS: Vitamin B Complex w/Vitamin C Tab PO SCH (08:49)
[2018-05-21] MEDS: Aspirin 81mg Chewable Tab PO SCH (16:29)
[2018-05-21] MEDS: Ferrous Sulfate 325 MG TAB PO SCH (16:30)
[2018-05-21] MEDS: Atorvastatin Calcium 10 MG TAB PO SCH (21:15)
--- NOTE | 2018-05-22 03:12 | Progress Notes ---
DATE: Case was discussed with staff of the patient, reviewed records. The patient continues to be grandiose, delusional. Continues to have pressured speech. Continues to be unpredictable, impulsive, continues to have poor insight about his situation. He is intrusive. He is compliant with the medication with no side effects, no sedation, no nausea and no extrapyramidal symptoms. We will continue to work with the patient in group therapy, milieu therapy, adjust the medication as needed. JOB# [id number]
[2018-05-22] MEDS: NOVOLOG SS SUBQ SCH ×2 (06:35→16:24)
[2018-05-22] MEDS: Levothyroxine 0.112 Mg Tab PO SCH (06:48)
[2018-05-22] MEDS: Vitamin B Complex w/Vitamin C Tab PO SCH ×2 (08:30→09:52)
[2018-05-22] MEDS: Sulfamethoxazole/TMP 800/160mg Tab PO SCH ×3 (08:31→16:21)
[2018-05-22] MEDS: Lactobacillus Rhamnosus GG 15 Billion CFU CAP.SPRINK PO SCH ×2 (08:32→09:55)
[2018-05-22] MEDS: INSULIN HUMAN ISOPHANE (NPH) 100 UNITS/ML SUBQ SCH ×2 (09:34→16:26)
[2018-05-22] MEDS: Ferrous Sulfate 325 MG TAB PO SCH (16:21)
[2018-05-22] MEDS: Aspirin 81mg Chewable Tab PO SCH (16:21)
[2018-05-22] MEDS: Atorvastatin Calcium 10 MG TAB PO SCH (20:26)
--- NOTE | 2018-05-22 22:51 | Progress Notes ---
DATE: 05/17/2018 PATIENT'S ID: 73-year-old male. SUBJECTIVE: The patient seen and examined. The patient is in no apparent distress. The patient is sitting in a chair, unable to follow independently. The patient denies any chest pain, shortness of breath, palpitation. OBJECTIVE: VITAL SIGNS: Temperature 97.6, pulse 83, respiratory rate 18, blood pressure 126/49. HEENT: No facial asymmetry. NECK: Supple, no JVD. HEART: Both heart sounds are regular. CHEST AND LUNGS: Equal in expansion with no expiratory wheezing. Palpable AICD noted. ABDOMEN: Soft. No guarding, no rigidity. Bowel sounds present. No palpable mass. EXTREMITIES: No edema, cyanosis. NEUROLOGIC: Alert, awake, follows command. Glucoscan is reviewed. Urine culture has grown E. coli ESBL. CLINICAL IMPRESSION: 1. Extended spectrum beta lactamase Escherichia coli urinary tract infection. 2. Diabetes. 3. Cardiomyopathy. 4. Status post automatic implantable cardioverter defibrillator. 5. Hyperlipidemia. 6. Degenerative joint disease. 7. Stage 3 chronic kidney disease. PLAN: The patient should use Bactrim DS 1 b.i.d. for ESBL E. coli UTI for now. Continue to provide diabetes management along with chronic disease management for his BPH, hypothyroidism, hyperlipidemia, congestive heart failure, cardiomyopathy as well as hyperlipidemia and cardiac arrhythmia. Psychiatric evaluation and management deferred to psychiatrist. We will continue to follow this patient during the stay in the hospital. JOB# [id number]
[2018-05-23] MEDS: Levothyroxine 0.112 Mg Tab PO SCH (07:00)
[2018-05-23] MEDS: NOVOLOG SS SUBQ SCH ×2 (07:40→16:48)
[2018-05-23] MEDS: Sulfamethoxazole/TMP 800/160mg Tab PO SCH ×2 (08:56→16:45)
[2018-05-23] MEDS: Vitamin B Complex w/Vitamin C Tab PO SCH (08:56)
[2018-05-23] MEDS: Lactobacillus Rhamnosus GG 15 Billion CFU CAP.SPRINK PO SCH (08:57)
[2018-05-23] MEDS: INSULIN HUMAN ISOPHANE (NPH) 100 UNITS/ML SUBQ SCH ×2 (09:45→16:54)
--- NOTE | 2018-05-23 15:38 | Progress Notes ---
DATE: 05/22/2018 SUBJECTIVE: A 73-year-old male transferred to the hospital from [facility] apparently with sexually inappropriate behaviors while in the hospital, not able to follow directions, verbally abusive towards staff. The patient states he is here for "a 72-hour check," states that he is "getting out now," states the year is 2028 and corrects himself and states it is 2010. He knows the month is May, believes it is May 17, it is in fact the . Per Dr. Dumont who has been seeing the patient over the past few days, he remains grandiose, pressured speech, unpredictable, continued confusional bouts. ASSESSMENT: The patient remains unpredictable, ongoing safety concerns, concerns for ongoing agitation, needing prompting, redirection. PLAN: We will continue to monitor. The patient is still delusional, stating that the people here are his friends from [place]. The patient is telling staff that he is an officer in the , so the staff has to follow his instructions. Medications were noted. Given ongoing symptoms, severity of delusions and psychosis he is not safe for a lower level of care at this time. JOB# [id number]
[2018-05-23] MEDS: Aspirin 81mg Chewable Tab PO SCH (16:46)
[2018-05-23] MEDS: Ferrous Sulfate 325 MG TAB PO SCH (16:46)
[2018-05-23] MEDS: Atorvastatin Calcium 10 MG TAB PO SCH (20:28)
[2018-05-24] MEDS: NOVOLOG SS SUBQ SCH ×2 (07:41→17:14)
[2018-05-24] MEDS: Levothyroxine 0.112 Mg Tab PO SCH (08:30)
[2018-05-24] MEDS: INSULIN HUMAN ISOPHANE (NPH) 100 UNITS/ML SUBQ SCH ×2 (08:59→18:00)
[2018-05-24] MEDS: Sulfamethoxazole/TMP 800/160mg Tab PO SCH ×2 (09:00→18:19)
[2018-05-24] MEDS: Lactobacillus Rhamnosus GG 15 Billion CFU CAP.SPRINK PO SCH (09:00)
[2018-05-24] MEDS: Vitamin B Complex w/Vitamin C Tab PO SCH (09:01)
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
[2018-05-24] MEDS: Aspirin 81mg Chewable Tab PO SCH (18:00)
[2018-05-24] MEDS: Ferrous Sulfate 325 MG TAB PO SCH (18:00)
[2018-05-24] MEDS: Atorvastatin Calcium 10 MG TAB PO SCH (20:24)
[2018-05-25] MEDS: Levothyroxine 0.112 Mg Tab PO SCH (06:32)
[2018-05-25] MEDS: NOVOLOG SS SUBQ SCH ×2 (06:35→16:48)
[2018-05-25] MEDS: INSULIN HUMAN ISOPHANE (NPH) 100 UNITS/ML SUBQ SCH ×2 (08:50→16:49)
[2018-05-25] MEDS: Sulfamethoxazole/TMP 800/160mg Tab PO SCH ×2 (08:51→16:51)
[2018-05-25] MEDS: Lactobacillus Rhamnosus GG 15 Billion CFU CAP.SPRINK PO SCH (08:51)
[2018-05-25] MEDS: Vitamin B Complex w/Vitamin C Tab PO SCH (08:53)
--- NOTE | 2018-05-25 12:45 | Progress Notes ---
DATE: 05/24/2018 SUBJECTIVE: A 73-year-old male transferred to the hospital from [facility], having sexually inappropriate commands and behaviors while in the hospital, verbally abusive toward others. On [id number], the patient was making comments indicative of grandiosities, speaking many different languages. Staff noting he remains grandiose, unpredictable, needing a lot of redirection and labile, some mood swings noted. He is allowing blood pressure and treatment, slept about 7 hours, still noted to be hyperverbal, odd comments, concerns about intrusive behaviors, inappropriate behavior toward females. ASSESSMENT: The patient remains unpredictable, ongoing safety concerns, behavioral disturbances as noted. PLAN: We will continue to monitor. Continue dosing of Reymundo Balderas. JOB# [id number] MTDD
[2018-05-25] MEDS: Aspirin 81mg Chewable Tab PO SCH (16:51)
[2018-05-25] MEDS: Ferrous Sulfate 325 MG TAB PO SCH (16:51)
[2018-05-25] MEDS: Atorvastatin Calcium 10 MG TAB PO SCH (21:37)
[2018-05-26] MEDS: NOVOLOG SS SUBQ SCH ×2 (06:40→16:09)
[2018-05-26] MEDS: Levothyroxine 0.112 Mg Tab PO SCH (06:56)
--- NOTE | 2018-05-26 07:28 | Progress Notes ---
DATE: 05/17/2018 PSYCHIATRIC PROGRESS NOTE SUBJECTIVE: Chart reviewed and the patient interviewed. Also discussed the patient's condition with the staff and reviewed records and labs. The patient seems to be slightly calmer than before, but he is still hyperverbal and is still intrusive to others. The patient also is still restless and suspicious and is still showing grandiose delusions and exhibiting manic behavior, but seems to be less than before. He also still has episodes of agitation and irritability. Otherwise, the patient is compliant with taking his medications and cooperative with his treatment and much easier to redirect him then before. ASSESSMENT: The patient is still manicky, but showing some improvement. TREATMENT PLAN: We will continue Abilify 50 mg at bedtime and continue Depakote 500 mg twice a day. Also, we will get Depakote blood level today and we will continue to follow up closely. JOB# [id number]
[2018-05-26] MEDS: INSULIN HUMAN ISOPHANE (NPH) 100 UNITS/ML SUBQ SCH ×2 (08:33→16:20)
[2018-05-26] MEDS: Vitamin B Complex w/Vitamin C Tab PO SCH (08:33)
[2018-05-26] MEDS: Lactobacillus Rhamnosus GG 15 Billion CFU CAP.SPRINK PO SCH (08:34)
[2018-05-26] MEDS: Epoetin Alfa 20000 Units/mL Vial SUBQ SCH (16:19)
[2018-05-26] MEDS: Aspirin 81mg Chewable Tab PO SCH (16:20)
[2018-05-26] MEDS: Ferrous Sulfate 325 MG TAB PO SCH (16:20)
[2018-05-26] MEDS: Atorvastatin Calcium 10 MG TAB PO SCH (20:52)
[2018-05-27] MEDS: NOVOLOG SS SUBQ SCH ×2 (06:52→16:42)
[2018-05-27] MEDS: Levothyroxine 0.112 Mg Tab PO SCH (06:58)
[2018-05-27] MEDS: Vitamin B Complex w/Vitamin C Tab PO SCH ×2 (08:27→09:32)
[2018-05-27] MEDS: Lactobacillus Rhamnosus GG 15 Billion CFU CAP.SPRINK PO SCH ×2 (08:27→09:32)
[2018-05-27] MEDS: INSULIN HUMAN ISOPHANE (NPH) 100 UNITS/ML SUBQ SCH ×2 (08:44→16:47)
--- NOTE | 2018-05-27 14:35 | Progress Notes ---
DATE: 05/26/2018 DATE OF SERVICE: 05/26/2018. SUBJECTIVE: Chart reviewed and the patient interviewed. Also discussed the patient's condition with the staff and reviewed records and labs. The patient is still hyperverbal and is still argumentative. The patient also is still restless. He also still needs close monitoring although it is easier to redirect him and the patient is less agitated. Also, is compliant with taking his medications with no side effects of medications. ASSESSMENT: The patient is still showing manic behavior, but seems to show some improvement. TREATMENT PLAN: Continue to monitor his behavior and his condition closely and continue to work on behavior modification and follow up closely. JOB# [id number]
[2018-05-27] MEDS: Aspirin 81mg Chewable Tab PO SCH (16:44)
[2018-05-27] MEDS: Ferrous Sulfate 325 MG TAB PO SCH (16:44)
--- NOTE | 2018-05-27 20:02 | Progress Notes ---
DATE: 05/27/2018 The patient in the hospital, generally calmer, still confused, stating that he is going to home today. Ongoing concerns about his thought processes. Slept fairly well with director of early childhood education awakenings, still forgetful, intrusive at times, sometimes irritable. Ongoing safety concerns, concerns about impulsivities, he can get agitated, upset. We will continue to monitor ongoing concerns about his impulsivity, thought processes, delusions, grandiosity as noted by staff. PLAN: We will continue to monitor, continue Depakote. JOB# [id number]
[2018-05-27] MEDS: Atorvastatin Calcium 10 MG TAB PO SCH (21:07)
[2018-05-28 06:44] LABS: EOSINOPHILE ABSOLUTE 0.2 Th/cmm (0.1-0.4); HEMOGLOBIN 9.2 gm/dL (12-16); MONOCYTE ABSOLUTE 0.3 Th/cmm (0.3-1.0); WHITE BLOOD COUNT 4.1 Th/cmm (4.8-10.8)
[2018-05-28 06:48] LABS: % BASOPHILS 1.1 % (0.0-2.0); % EOSINOPHILS 4.3 % (0.0-5.0); % LYMPHOCYTES 25.5 % (20.0-50.0); % MONOCYTES 7.9 % (2.0-10.0); % NEUTROPHILS 61.2 % (40.0-80.0); HEMATOCRIT 28.7 % (41.0-60); MEAN CELL VOLUME 76.1 fl (80-99); MEAN CORPUSCULAR HEMOGLOBIN 24.4 pg (27.0-31.0); MEAN PLATELET VOLUME 7.1 fl; NEUTROPHILE ABSOLUTE 2.6 Th/cmm (1.8-8.0); PLATELET COUNT 185 Th/cmm (150-400); RED BLOOD COUNT 3.77 Mil/cmm (3.80-5.80)
[2018-05-28] MEDS: Levothyroxine 0.112 Mg Tab PO SCH (06:58)
[2018-05-28] MEDS: NOVOLOG SS SUBQ SCH ×2 (06:59→18:19)
[2018-05-28] MEDS: INSULIN HUMAN ISOPHANE (NPH) 100 UNITS/ML SUBQ SCH (09:00)
[2018-05-28] MEDS: Vitamin B Complex w/Vitamin C Tab PO SCH (09:25)
[2018-05-28] MEDS: Lactobacillus Rhamnosus GG 15 Billion CFU CAP.SPRINK PO SCH (09:25)
[2018-05-28] MEDS: Aspirin 81mg Chewable Tab PO SCH (17:44)
[2018-05-28] MEDS: Ferrous Sulfate 325 MG TAB PO SCH (17:48)
--- NOTE | 2018-05-28 18:20 | Progress Notes ---
DATE: 05/28/2018 DATE OF SERVICE: 05/28/2018. SUBJECTIVE: The patient is currently in the hospital, coming from a [facility], sexually inappropriate behaviors. The patient seems to be better oriented, knows what is going on. However, still making some odd comments stating that he fell in love with a girl in this unit and although he is going home to his . He is also getting and going to [facility]. The patient is somewhat grandiose, ongoing thoughts. He is generally oriented, but is having some episodes of confusion fixated mostly on women and getting . Sleeping well, eating well. The patient with almond grinder awakenings. Medications were reviewed including doses and frequencies. ASSESSMENT: The patient not completely in touch with reality. Still somewhat delusional, grandiose; however, no combative symptoms. PLAN: We will continue to monitor. Continue dosing Abilify. JOB# [id number]
[2018-05-28] MEDS: Atorvastatin Calcium 10 MG TAB PO SCH (21:42)
[2018-05-29] MEDS: Levothyroxine 0.112 Mg Tab PO SCH (06:56)
[2018-05-29] MEDS: NOVOLOG SS SUBQ SCH ×2 (06:57→17:33)
[2018-05-29] MEDS: Vitamin B Complex w/Vitamin C Tab PO SCH (08:54)
[2018-05-29] MEDS: Lactobacillus Rhamnosus GG 15 Billion CFU CAP.SPRINK PO SCH (08:54)
[2018-05-29] MEDS: INSULIN HUMAN ISOPHANE (NPH) 100 UNITS/ML SUBQ SCH ×3 (08:55→17:34)
[2018-05-29] MEDS: Ferrous Sulfate 325 MG TAB PO SCH (17:33)
[2018-05-29] MEDS: Aspirin 81mg Chewable Tab PO SCH (17:33)
[2018-05-29] MEDS: Atorvastatin Calcium 10 MG TAB PO SCH (21:27)
[2018-05-30] MEDS: Levothyroxine 0.112 Mg Tab PO SCH (07:02)
[2018-05-30] MEDS: NOVOLOG SS SUBQ SCH (07:18)
[2018-05-30] MEDS: Vitamin B Complex w/Vitamin C Tab PO SCH (08:56)
[2018-05-30] MEDS: Lactobacillus Rhamnosus GG 15 Billion CFU CAP.SPRINK PO SCH (09:00)
[2018-05-30] MEDS: INSULIN HUMAN ISOPHANE (NPH) 100 UNITS/ML SUBQ SCH ×2 (09:42→16:59)
[2018-05-30] MEDS: Aspirin 81mg Chewable Tab PO SCH (16:59)
[2018-05-30] MEDS: INSULIN LISPRO SLIDING SCALE 100 UNITS/ML UNIT SUBQ SCH (16:59)
[2018-05-30] MEDS: Ferrous Sulfate 325 MG TAB PO SCH (17:05)
--- NOTE | 2018-05-30 18:29 | Progress Notes ---
DATE: 05/29/2018 SUBJECTIVE: Chart reviewed and the patient interviewed. Also discussed the patient's condition with the staff and reviewed records and labs. The patient is still restless and is still exhibiting manic behavior and he is still hyperverbal. Also still intrusive to others. The patient also refused his medications yesterday. Also, still argumentative and is still resisting care. Otherwise, the patient is less aggressive. ASSESSMENT: The patient is still uncooperative and agitated and needs close monitoring. TREATMENT PLAN: Continue to monitor behavior and condition closely and continue to follow up. Also working on his compliance with medications. JOB# [id number]
[2018-05-30] MEDS: Atorvastatin Calcium 10 MG TAB PO SCH (21:01)
--- NOTE | 2018-05-31 00:24 | Progress Notes ---
DATE: 05/30/2018 PSYCHIATRIC PROGRESS NOTE SUBJECTIVE: Chart reviewed and the patient interviewed. Also discussed the patient's condition with the staff and I reviewed records and labs. The patient is still anxious and he is still exhibiting manic behavior. The patient also is still intrusive to others and he is still going around the unit in an angry mood. He also is still argumentative. The patient also is not able to follow staff's directions. On the other hand, the patient is slightly calmer and he is compliant with taking his medications with no side effect. ASSESSMENT: The patient is still manicky and agitated. TREATMENT PLAN: Continue to monitor his behavior and condition closely. Also, continue to work on discharge plans and possible placement issue. JOB# [id number]
[2018-05-31] MEDS: INSULIN LISPRO SLIDING SCALE 100 UNITS/ML UNIT SUBQ SCH ×2 (07:09→17:10)
[2018-05-31] MEDS: Vitamin B Complex w/Vitamin C Tab PO SCH (08:56)
[2018-05-31] MEDS: Lactobacillus Rhamnosus GG 15 Billion CFU CAP.SPRINK PO SCH (08:57)
[2018-05-31] MEDS: Levothyroxine 0.112 Mg Tab PO SCH (08:59)
[2018-05-31] MEDS: INSULIN HUMAN ISOPHANE (NPH) 100 UNITS/ML SUBQ SCH ×2 (09:00→17:10)
--- NOTE | 2018-05-31 15:42 | Progress Notes ---
DATE: DATE OF EVALUATION: 05/31/2018. IDENTIFICATION: A 73-year-old male. SUBJECTIVE: The patient seen and examined. The patient is ambulatory, unable to get any meaningful history. Discussed with RN about the treatment plan as well. PHYSICAL EXAMINATION: VITAL SIGNS: Temperature 97.8, pulse 70, respiratory rate 18, and blood pressure 102/56. HEENT: No facial asymmetry. NECK: Supple, no JVD. HEART: Both heart sounds are irregular. CHEST: Lung equal in expansion, no expiratory wheezing. ABDOMEN: Soft. No guarding. No rigidity. Bowel sounds present. No palpable mass. EXTREMITIES: No edema. AVAILABLE DIAGNOSTIC DATA: Including Glucoscan is reviewed. CLINICAL IMPRESSION: 1. Diabetes mellitus. 2. Cardiomyopathy. 3. Congestive heart failure. 4. Coronary artery disease. 5. Hypertension. 6. Degenerative joint disease. 7. Hyperlipidemia. 8. Chronic kidney disease, III. 9. High risk for fall. PLAN: 1. Monitor blood sugar, blood pressure. 2. Continue chronic disease management. 3. Fall precautions. 4. General nursing care. 5. Psychotic evaluation and management deferred to psychiatrist. 6. We will get the followup lab. 7. Care plan reviewed and discussed with staff. JOB# [id number]
[2018-05-31] MEDS: Aspirin 81mg Chewable Tab PO SCH (17:10)
[2018-05-31] MEDS: Ferrous Sulfate 325 MG TAB PO SCH (17:11)
[2018-05-31] MEDS: Atorvastatin Calcium 10 MG TAB PO SCH (20:31)
--- NOTE | 2018-05-31 23:12 | Progress Notes ---
DATE: SUBJECTIVE: Chart reviewed and the patient interviewed. Also discussed the patient's condition with the staff and reviewed records and labs. The patient is still showing poor judgment and is still a poor historian and impulsive and intrusive to others. Also, is hyperverbal. The patient also is still having difficulty following directions because of his paranoia and delusions. The patient also is still acting strange and have different ways of treating things. Otherwise, the patient compliant with medications with no side effects of medications. ASSESSMENT: The patient is still manic and psychotic. TREATMENT PLAN: Continue to monitor his behavior and his condition closely. Also, working on placement issue and discharge plans. JOB# [id number]
[2018-06-01] MEDS: Levothyroxine 0.112 Mg Tab PO SCH (06:42)
[2018-06-01] MEDS: INSULIN LISPRO SLIDING SCALE 100 UNITS/ML UNIT SUBQ SCH ×2 (06:43→16:40)
[2018-06-01] MEDS: INSULIN HUMAN ISOPHANE (NPH) 100 UNITS/ML SUBQ SCH ×2 (09:14→16:41)
[2018-06-01] MEDS: Lactobacillus Rhamnosus GG 15 Billion CFU CAP.SPRINK PO SCH (09:15)
[2018-06-01] MEDS: Vitamin B Complex w/Vitamin C Tab PO SCH (09:20)
--- NOTE | 2018-06-01 12:02 | Progress Notes ---
DATE: 06/01/2018 THE PATIENT'S IDENTIFICATION: A 73-year-old male. SUBJECTIVE: The patient seen and examined. The patient is lying in the bed. The patient complained of intermittent cough, though recently cough has decreased. The patient currently denies any chest pain, abdominal pain, nausea, vomiting. OBJECTIVE: VITAL SIGNS: See nurse's note. HEENT: Poor dentition. NECK: Supple. No JVD. HEART: Regular. CHEST: Equal in expansion, no expiratory wheezing.P ABDOMEN: Soft. EXTREMITIES: No edema. NEUROLOGIC: Alert and awake, follows commands. CLINICAL IMPRESSION: 1. Hypothyroidism. 2. Hyperlipidemia. 3. Alzheimer's dementia. 4. Gastroesophageal reflux disease. 5. Status post AICD placement. 6. Hypertension. 7. Congestive heart failure. 8. Chronic kidney disease. 9. Benign prostatic hypertrophy. 10. Peripheral vascular disease. PLAN: 1. Psych medication. 2. Psych followup. 3. Chronic disease management. 4. Symptoms management. 5. Medication management. 6. General nursing care. 7. Fall precaution. 8. Symptoms control. 9. Nutritional support. 10. Care plan reviewed and discussed with staff. JOB# [id number]
[2018-06-01] MEDS: Ferrous Sulfate 325 MG TAB PO SCH (17:12)
[2018-06-01] MEDS: Aspirin 81mg Chewable Tab PO SCH (17:12)
--- NOTE | 2018-06-02 02:01 | Discharge Summary ---
DATE OF DISCHARGE: 06/01/2018 FINAL DIAGNOSES AND PRIMARY DIAGNOSES: Bipolar disorder, manic episode, severe, with psychotic features. MEDICAL DIAGNOSES: 1. Hypertension. 2. Atrial fibrillation. 3. Hypothyroidism. 4. Anemia. REASON FOR HOSPITALIZATION: The patient was admitted to the hospital because of increased agitation and because of sexually inappropriate behavior and difficulty following directions, and he was verbally abusive to female staff there. HOSPITAL COURSE: The patient continued to be in an irritable mood. The patient also continued to have severe mood swings. The patient also continued to exhibit inappropriate behavior towards female staff. He was given Depakote and the dose adjusted to 500 mg twice a day. The patient also was continued to be monitored closely because of his aggressive behavior. Gradually, the patient's affect was brighter. The patient was less agitated and less manicky. Also, inappropriate behavior decreased. The patient was discharged from the hospital back to [facility]. PHYSICAL EXAMINATION: The patient was basically within normal. The patient had no major medical issues while in the hospital. AFTER DISCHARGE PLANS: Follow up in [facility]. [facility]# [id number]
== END 2018-06-01 17:00 | DRG 885 ==
LOC: ER 16:28 → GERO 20:45
PROVIDERS: ADMIT Psychiatry & Neurology Psychiatry; ATTEND Psychiatry & Neurology Psychiatry
DX: F31.2 Bipolar disorder, current episode manic severe with psychotic features (principal); N18.3 Chronic kidney disease, stage 3 (moderate); I42.9 Cardiomyopathy, unspecified; I13.0 Hypertensive heart and chronic kidney disease with heart failure and stage 1 through stage 4 chronic kidney disease, or unspecified chronic kidney disease; N39.0 Urinary tract infection, site not specified; I50.9 Heart failure, unspecified; E78.5 Hyperlipidemia, unspecified; E11.22 Type 2 diabetes mellitus with diabetic chronic kidney disease; I25.10 Atherosclerotic heart disease of native coronary artery without angina pectoris; I87.8 Other specified disorders of veins; F03.90 Unspecified dementia, unspecified severity, without behavioral disturbance, psychotic disturbance, mood disturbance, and anxiety; R45.1 Restlessness and agitation; N40.0 Benign prostatic hyperplasia without lower urinary tract symptoms; E03.9 Hypothyroidism, unspecified; M19.90 Unspecified osteoarthritis, unspecified site; F99 Mental disorder, not otherwise specified; I48.91 Unspecified atrial fibrillation; D64.9 Anemia, unspecified; Z95.810 Presence of automatic (implantable) cardiac defibrillator; Z88.8 Allergy status to other drugs, medicaments and biological substances; Z82.49 Family history of ischemic heart disease and other diseases of the circulatory system; Z83.3 Family history of diabetes mellitus; Z91.81 History of falling
CPT/HCPCS: 36415-UA; 80053-TC; 80061-TC; 80164-TC; 80320-TC; 80329-TC; 81001-TC; 82948-90; 83036-90; 84443-TC; 84484-TC; 85025-TC; 86592-TC; 87086-90; 93005; G0410; J0885; J1815; Z7610